=== PATIENT | female | born 1990 | race Hispanic/Latino ===

== ENCOUNTER 2018-04-11 22:01 | Emergency (ER) | payer OTHER ==
--- OUTSIDE RECORDS SUMMARY | 2018-04-11 22:03 | XMS REPORT | Clinical Summary ---
:1990 Author Organization [facility] Address [facility] [place] [address] Care Team Providers Name Role Phone Unavailable Primary Care Provider Unavailable Allergies Not on File Medications Not on file Active Problems Not on file Encounters Date Type Specialty Care Team Description 05/14/2017 Emergency Emergency Medicine Refugio Huerta MD Drug abuse ( Primary Dx) after 04/10/2017 Social History Tobacco Use Types Packs/Day Years Used Date Never Assessed Sex Assigned at Date Recorded Not on file Job Start Date Occupation Industry Not on file Not on file Not on file Travel History Travel Start Travel End No recent travel history available. Last Filed Vital Signs Vital Sign Reading Time Taken Blood Pressure 124/83 05/14/2017 2:13 PM RELEASE ENGINEER Pulse 80 05/14/2017 2:13 PM RELEASE ENGINEER Temperature 36.9 C (98.5 F) 05/14/2017 2:13 PM RELEASE ENGINEER Respiratory Rate 18 05/14/2017 2:13 PM RELEASE ENGINEER Oxygen Saturation 98% 05/14/2017 2:13 PM RELEASE ENGINEER Inhaled Oxygen Concentration - - Weight 88.5 kg (195 lb 1.6 oz) 05/14/2017 12:21 PM RELEASE ENGINEER Height - - Body Mass Index - - Plan of Treatment Health Maintenance Due Date Last Done Comments Cervical Cancer Scrn (3 Yrs) 2010 IMM Influenza Seasonal Jan to June (>/=19 yrs) 01/04/2018 Procedures Procedure Name Priority Date/Time Associated Diagnosis Comments VBG POC Routine 05/14/2017 12:40 PM Results for this RELEASE ENGINEER procedure are in the results section. BMP POC Routine 05/14/2017 12:39 PM Results for this RELEASE ENGINEER procedure are in the results section. LIVER PROFILE Routine 05/14/2017 12:38 PM Results for this RELEASE ENGINEER procedure are in the results section. SALICYLATE STAT 05/14/2017 12:38 PM Results for this RELEASE ENGINEER procedure are in the results section. ACETAMINOPHEN STAT 05/14/2017 12:38 PM Results for this RELEASE ENGINEER procedure are in the results section. CBC/DIFF STAT 05/14/2017 12:38 PM Results for this RELEASE ENGINEER procedure are in the results section. TROPONIN I POC Routine 05/14/2017 12:37 PM Results for this RELEASE ENGINEER procedure are in the results section. after 04/10/2017 Results VBG POC (05/14/2017 12:40 PM RELEASE ENGINEER) pH, [place] POC 7.39Comment: 7.33 - 7.43 [facility] Physician Notified 1 pCO2, [place] POC 37.6 (L) 38.0 - 50.0 [facility] mm Hg 1 pO2, [place] POC 37 (L) 50 - 75 mm Hg [facility] 1 Base Deficit, [place] 2 [facility] POC 1 HCO3, [place] POC 22.9 22.0 - 26.0 [facility] mmol/L 1 % Sat, [place] POC 71 60 - 85 % [facility] 1 Lactic Acid, [place] 0.71 0.4 - 2.0 [facility] POC mmol/L 1 TCO2, [place] POC 24 21 - 32 [facility] mmol/L 1 Performing Organization Address City/State/Zipcode Phone Number MISYS [facility] 1 BMP POC (05/14/2017 12:39 PM RELEASE ENGINEER) CO2 POC 25 21 - 32 mmol/L [facility] 1 Chloride POC 102 98 - 107 mmol/L [facility] 1 Potassium POC 4.4 3.50 - 5.10 [facility] 1 mmol/L Sodium POC 137 136 - 145 mmol/L [facility] 1 Glucose POC 97 74 - 106 mg/dL [facility] 1 Urea Nitrogen POC 16 7 - 18 mg/dL [facility] 1 Creatinine POC 0.7 0.6 - 1.3 mg/dL [facility] 1 Calcium Ionized POC 1.19 1.15 - 1.29 [facility] 1 mmol/L Hemoglobin POC 11.2 (L) 12.0 - 16.0 g/dL [facility] 1 Hematocrit POC 33.0 (L) 37.0 - 47.0 % [facility] 1 GFR, Estimated >60 mL/min/1.73 m2 [facility] 1 GFR, Estim, Afr-Am >60 mL/min/1.73 m2 [facility] 1 Performing Organization Address [facility] Phone Number [facility] 1 SALICYLATE (05/14/2017 12:38 PM RELEASE ENGINEER) Salicylate <1.7 (L) 2.8 - 20.0 mg/dL [facility] 4 Specimen Blood Performing Organization Address [facility] Phone Number [facility] 4 LIVER PROFILE (05/14/2017 12:38 PM RELEASE ENGINEER) T Protein 8.1 6.4 - 8.2 g/dL [facility] 4 Albumin 4.0 3.4 - 5.0 g/dL [facility] 4 T Bilirubin 0.2 0.2 - 1.0 mg/dL [facility] 4 Alk Phos 61 45 - 117 U/L [facility] 4 AST 10 (L) 15 - 37 U/L [facility] 4 ALT 18 12 - 78 U/L [facility] 4 D Bilirubin <0.1 0.0 - 0.2 mg/dL [facility] 4 Specimen Blood Performing Organization Address [facility] Phone Number [facility] 4 CBC/DIFF (05/14/2017 12:38 PM RELEASE ENGINEER) WBC 7.3 4.5 - 11.0 K/uL [facility] 2 RBC 4.06 (L) 4.20 - 5.40 [facility] 2 M/uL Hemoglobin 9.6 (L) 12.0 - 16.0 [facility] 2 g/dL Hematocrit 32.3 (L) 37.0 - 47.0 % [facility] 2 MCV 80 (L) 82 - 92 fL [facility] 2 MCH 23.6 (L) 27.0 - 32.0 pg [facility] 2 MCHC 29.7 (L) 32.0 - 36.0 [facility] 2 g/dL RDW 58.0 (H) 36.4 - 46.3 fL [facility] 2 Platelet 315 150 - 400 K/uL [facility] 2 Mean Platelet Volume 9.4 9.4 - 12.4 fL [facility] 2 Percent NRBC 0.0 [facility] 2 Absolute NRBC 0.00 [facility] 2 Neutrophil 51.2 34.0 - 70.0 % [facility] 2 Lymphocyte 39.0 20.0 - 50.0 % [facility] 2 Monocyte 6.9 5.0 - 12.0 % [facility] 2 Eosinophil 1.9 0.7 - 5.0 % [facility] 2 Basophil 0.7 0.1 - 1.2 % [facility] 2 Pct Immat Gran 0.3 0.0 - 0.5 [facility] 2 Neutrophil, Abs 3.74 1.56 - 6.13 [facility] 2 K/uL Lymphocyte, Abs 2.84 1.18 - 3.74 [facility] 2 K/uL Monocyte, Abs 0.50 (H) 0.24 - 0.36 [facility] 2 K/uL Eosinophil, Abs 0.14 0.04 - 0.36 [facility] 2 K/uL Basophil, Abs 0.05 0.01 - 0.08 [facility] 2 K/uL Absol Immat Gran 0.02 0.00 - 0.03 [facility] 2 K/uL Specimen Blood Performing Organization Address [facility] Phone Number JURGENYS [facility] 2 ACETAMINOPHEN (05/14/2017 12:38 PM RELEASE ENGINEER) Acetaminophen 7.40 (L)Comment: 10 - 30 ug/mL [facility] Please refer to 4 acetaminophen nomogram Specimen Blood Performing Organization Address [facility] Phone Number RADHA [facility] 4 TROPONIN I POC (05/14/2017 12:37 PM RELEASE ENGINEER) Troponin POC 0.00 0.00 - 0.08 ng/mL [facility] 1 Performing Organization Address [facility]ode Phone Number JURGENYS [facility] 1 after 04/10/2017 Insurance Payer Benefit Plan / Subscriber ID Effective Phone Address Type Group Dates [facility] xxxxxxxxx 2016-Prese [phone] [employer] [facility] [phone] [place] [address]
--- OUTSIDE RECORDS SUMMARY | 2018-04-11 22:03 | XMS REPORT ---
:1990 [facility] [address] [place] [address] [place] [id number] Care Team Providers Name Role Phone Unavailable Unavailable Unavailable Problems This patient has no known problems. Allergies, Adverse Reactions, Alerts This patient has no known allergies or adverse reactions. Medications This patient has no known medications. Encounters Start End Encounter Admission Attending Care Care Encounter Date/Time Date/Time Type Type Clinicians Facility Department ID 2017-05-14 2017-05-14 Emergency [facility] [id number] 12:33:15 12:33:15
[2018-04-11 23:54] LABS: Absolute Lymphocytes (CBC) 3.4 K/uL (0.7-4.9); Absolute Monocytes 0.7 K/uL (0.1-1.3); Absolute Neutrophil 6.8 K/uL (1.8-8.0); Basophils % 0.5 % (0-1.3); Eosinophils % 1.5 % (0-4.4); Hematocrit 38.7 % (36.0-45.0); Lymphocytes % 30.7 % (15.3-44.8); MPV 8.9 fL (7.6-11.3); Monocytes % 6.3 % (3.3-12.3); Protime INR 1.01; RBC Red Blood Cell Count 4.85 M/uL (3.86-4.86)
[2018-04-12 00:02] LABS: ALT/SGPT 42 U/L (12-78); AST/SGOT 19 U/L (15-37); Alkaline Phosphatase 68 U/L (45-117); BUN Blood Urea Nitrogen 11 mg/dL (7-18); Bicarbonate 25 mmol/L (21-32); Bilirubin Direct < 0.1 mg/dL (0-0.2); Bilirubin Total 0.1 mg/dL (0.2-1.0); Glucose Level 93 mg/dL (74-106); Magnesium 2.3 mg/dL (1.8-2.4); NT PRO-BNP 7 pg/mL (<125); Potassium 3.9 mmol/L (3.5-5.1); Sodium Level 142 mmol/L (136-145); Troponin (Emerg Dept Use Only) < 0.02 ng/mL (0.0-0.045)
[2018-04-12 00:04] LABS: Barbiturates NEGATIVE (NEGATIVE); Benzodiazepines NEGATIVE (NEGATIVE); Cocaine NEGATIVE (NEGATIVE); METHAMPHETAM NEGATIVE (NEGATIVE); Methadone NEGATIVE (NEGATIVE); Opiates NEGATIVE (NEGATIVE); Phencyclidine NEGATIVE (NEGATIVE); THC Cannibis NEGATIVE (NEGATIVE)
[2018-04-12 00:28] LABS: Anisocytosis 3+; Blood Morphology Comment NOTED (NOT SEEN); Ovalocytes 1+; Platelet Estimate ADEQ
[2018-04-12 00:31] LABS: Urine Blood 1+ (NEG); Urine Glucose NEGATIVE (NEG); Urine Protein NEGATIVE (NEG); Urine pH 6.5 (5.0-7.0)
--- NOTE | 2018-04-12 00:34 | EDPHYS ---
Physician Documentation [facility] Name: Margie Coley Age: 27 yrs Sex: Female : 1990 Arrival Date: 04/11/2018 Time: 22:04 Bed 30 Private MD: None, None ED Physician Chris Villalba HPI: 04/11 23:03 This 27 yrs old Female presents to ER via Ambulatory with complaints of pkl Fainting. 23:03 The patient has experienced syncope, lost consciousness. Onset: The symptoms/episode pkl began/occurred 10 day(s) ago. Associated signs and symptoms: Pertinent positives: bruisers both legs. Patient said she had 3 syncopal episodes in the past 10 days. 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 - Social history:: Smoking status: Patient uses tobacco products, smokes one-half pack cigarettes per day. - Ebola Screening: : No symptoms or risks identified at this time. ROS: 23:03 Eyes: Negative for injury, pain, redness, and discharge, ENT: Negative for injury, pkl pain, and discharge, Neck: Negative for injury, pain, and swelling, Cardiovascular: Negative for chest pain, palpitations, and edema, Respiratory: Negative for shortness of breath, cough, wheezing, and pleuritic chest pain, Abdomen/GI: Negative for abdominal pain, nausea, vomiting, diarrhea, and constipation, Back: Negative for injury and pain, : Negative for injury, bleeding, discharge, and swelling, MS/Extremity: Negative for injury and deformity. 23:03 Skin: Positive for bruises both legs. 23:03 Neuro: Positive for syncope. Exam: 23:03 Abdomen/GI: Exam negative for acute changes. pkl 23:03 Head/Face: Normocephalic, atraumatic. Eyes: Pupils equal round and reactive to light, extra-ocular motions intact. Lids and lashes normal. Conjunctiva and sclera are non-icteric and not injected. Cornea within normal limits. Periorbital areas with no swelling, redness, or edema. ENT: Nares patent. No nasal discharge, no septal abnormalities noted. Tympanic membranes are normal and external auditory canals are clear. Oropharynx with no redness, swelling, or masses, exudates, or evidence of obstruction, uvula midline. Mucous membranes moist. Neck: Trachea midline, no thyromegaly or masses palpated, and no cervical lymphadenopathy. Supple, full range of motion without nuchal rigidity, or vertebral point tenderness. No Meningismus. Chest/axilla: Normal chest wall appearance and motion. Nontender with no deformity. No lesions are appreciated. Cardiovascular: Regular rate and rhythm with a normal S1 and S2. No gallops, murmurs, or rubs. Normal PMI, no JVD. No pulse deficits. Respiratory: Lungs have equal breath sounds bilaterally, clear to auscultation and percussion. No rales, rhonchi or wheezes noted. No increased work of breathing, no retractions or nasal flaring. Abdomen/GI: Soft, non-tender, with normal bowel sounds. No distension or tympany. No guarding or rebound. No evidence of tenderness throughout. Back: No spinal tenderness. No costovertebral tenderness. Full range of motion. 23:03 Skin: Appearance: bruises both. Vital Signs: 22:16 BP 151 / 96; Pulse 86; Resp 16; Temp 99.4(O); Pulse Ox 100% on R/A; Weight 90.72 kg; lp1 Height 5 ft. 6 in. (167.64 cm); Pain 0/10; 22:59 BP 130 / 88 Supine; Pulse 81; Pulse Ox 100% ; tl3 22:59 BP 136 / 90; Pulse 94; Pulse Ox 100% on R/A; tl3 22:59 BP 150 / 111; Pulse 90; Pulse Ox 100% on R/A; tl3 04/12 00:36 BP 113 / 77; Pulse 77; Resp 18; Pulse Ox 100% on R/A; tl3 04/11 22:16 Body Mass Index 32.28 (90.72 kg, 167.64 cm) lp1 MDM: 04/11 22:47 Patient medically screened. [facility] 23:03 Data reviewed: vital signs, nurses notes. [facility] 04/12 00:32 Data reviewed: lab test result(s), EKG, radiologic studies, CT scan, plain films. pkl 04/11 23:03 Order name: Basic Metabolic Panel; Complete Time: 00:16 pkl 04/11 23:03 Order name: CBC with Diff; Complete Time: 00:34 pkl 04/11 23:03 Order name: LFT's; Complete Time: 00:16 pkl 04/11 23:03 Order name: Magnesium; Complete Time: 00:16 pkl 04/11 23:03 Order name: NT PRO-BNP; Complete Time: 00:16 pkl 04/11 23:03 Order name: PT-INR; Complete Time: 00:16 pkl 04/11 23:03 Order name: Troponin (emerg Dept Use Only); Complete Time: 00:16 pkl 04/11 23:03 Order name: XRAY Chest (1 view) pkl 04/11 23:12 Order name: UDS; Complete Time: 00:16 pkl 04/11 23:12 Order name: Sed Rate; Complete Time: 00:16 pkl 04/11 23:12 Order name: CT Head Brain wo Cont pkl 01 23:58 Order name: Urine Dipstick--Ancillary (enter results); Complete Time: 00:34 em1 04/11 23:58 Order name: Urine --Ancillary (enter results); Complete Time: 00:34 em1 04/12 00:01 Order name: Manual Differential; Complete Time: 00:34 EDMS 04/11 23:03 Order name: EKG; Complete Time: 23:04 pkl 04/11 23:03 Order name: Cardiac monitoring; Complete Time: 23:34 pkl 04/11 23:03 Order name: EKG - Nurse/Tech; Complete Time: 23:34 pkl 04/11 23:03 Order name: IV Saline Lock; Complete Time: 23:19 pkl 04/11 23:03 Order name: Labs collected and sent; Complete Time: 23:19 pkl 04/11 23:03 Order name: O2 Per Protocol; Complete Time: 23:19 pkl 04/11 23:03 Order name: O2 Sat Monitoring; Complete Time: 23:19 pkl Administered Medications: No medications were administered Disposition: 04/12/18 00:33 Discharged to Home. Impression: Syncope. - Condition is Stable. - Medication Reconciliation Form, Thank You Letter, Antibiotic Education, Prescription Opioid Use form. - Follow up: Christ Lim MD; When: 2 - 3 days; Reason: Re-evaluation by your physician. - Problem is new. - Symptoms have improved. Signatures: Dispatcher [employer] EDChris Klein MD MD pkl Farhana Sanders RN RN lp1 Alida Mckeon RN RN tl3 Corrections: (The following items were deleted from the chart) 00:43 00:33 04/12/2018 00:33 Discharged to Home. Impression: Syncope. Condition is Stable. tl3 Forms are Medication Reconciliation Form, Thank You Letter, Antibiotic Education, Prescription Opioid Use. Follow up: Christ Lim; When: 2 - 3 days; Reason: Re-evaluation by your physician. Problem is new. Symptoms have improved. pkl
--- NOTE | 2018-04-12 00:34 | ER ---
Nurse's Notes [facility] Name: Margie Coley Age: 27 yrs Sex: Female : 1990 Arrival Date: 04/11/2018 Time: 22:04 Bed 30 Private MD: None, None Diagnosis: Syncope Presentation: 04/11 22:14 Presenting complaint: Patient states: "I have fainted 3 times in the last week and a lp1 half"; Patient states fainting occurs in the morning when she is getting out of bed; Also has multiple bruising to lower legs, unknown reason. Transition of care: patient was not received from another setting of care. Onset of symptoms was April 11, 2018. Risk Assessment: Do you want to hurt yourself or someone else? Patient reports no desire to harm self or others. Initial Sepsis Screen: Does the patient meet any 2 criteria? No. Patient's initial sepsis screen is negative. Does the patient have a suspected source of infection? No. Patient's initial sepsis screen is negative. Care prior to arrival: None. 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 - Social history:: Smoking status: Patient uses tobacco products, smokes one-half pack cigarettes per day. - Ebola Screening: : No symptoms or risks identified at this time. Screenin:16 Abuse screen: Denies threats or abuse. Denies injuries from another. Nutritional lp1 screening: No deficits noted. Tuberculosis screening: No symptoms or risk factors identified. 23:00 Fall Risk None identified. tl3 Assessment: 23:00 General: Appears comfortable, well groomed, well developed, well nourished, Behavior is tl3 calm, cooperative, appropriate for age. General: pt reports that she has felt weak and dizzy upon first waking in the morning as she is getting up from the lying position. Pain: Denies pain. Neuro: Level of Consciousness is awake, alert, obeys commands, Oriented to person, place, time, situation, Appropriate for age. Cardiovascular: Patient's skin is warm and dry. Respiratory: Airway is patent Respiratory effort is even, unlabored, Respiratory pattern is regular, symmetrical. GI: No signs and/or symptoms were reported involving the gastrointestinal system. : No signs and/or symptoms were reported regarding the genitourinary system. EENT: No signs and/or symptoms were reported regarding the EENT system. Derm: No signs and/or symptoms reported regarding the dermatologic system. Musculoskeletal: No signs and/or symptoms reported regarding the musculoskeletal system. 04/12 00:36 Reassessment: Patient appears in no apparent distress at this time. No changes from tl3 previously documented assessment. Patient and/or family updated on plan of care and expected duration. Pain level reassessed. Patient is alert, oriented x 3, equal unlabored respirations, skin warm/dry/pink. Vital Signs: 04/11 22:16 BP 151 / 96; Pulse 86; Resp 16; Temp 99.4(O); Pulse Ox 100% on R/A; Weight 90.72 kg; lp1 Height 5 ft. 6 in. (167.64 cm); Pain 0/10; 22:59 BP 130 / 88 Supine; Pulse 81; Pulse Ox 100% ; tl3 22:59 BP 136 / 90; Pulse 94; Pulse Ox 100% on R/A; tl3 22:59 BP 150 / 111; Pulse 90; Pulse Ox 100% on R/A; tl3 04/12 00:36 BP 113 / 77; Pulse 77; Resp 18; Pulse Ox 100% on R/A; tl3 04/11 22:16 Body Mass Index 32.28 (90.72 kg, 167.64 cm) lp1 ED Course: 04/11 22:04 Patient arrived in ED. mr 22:05 None, None is Private Physician. mr 22:15 Triage completed. lp1 22:16 Arm band placed on right wrist. lp1 22:47 Chris Villalba MD is Attending Physician. pkl 22:50 Alida Mckeon, SAMSON is Primary Nurse. tl3 23:00 Patient has correct armband on for positive identification. Placed in gown. Bed in low tl3 position. Call light in reach. Side rails up X 1. Pulse ox on. NIBP on. Warm blanket given. 23:00 No provider procedures requiring assistance completed. tl3 23:14 X-ray completed. Portable x-ray completed in exam room. Patient tolerated procedure kw well. 23:15 XRAY Chest (1 view) In Process Unspecified. EDMS 23:18 Inserted saline lock: 20 gauge in right antecubital area, using aseptic technique. mt Blood collected. 23:[address] via wheelchair. tl3 23:[address] via wheelchair. kw1 23:50 CT Head Brain wo Cont In Process Unspecified. EDMS 23:51 CT completed. Patient tolerated procedure well. Patient moved back from CT. kw1 04/12 00:33 Christ Lim MD is Referral Physician. pkl 00:36 IV discontinued, intact, bleeding controlled, No redness/swelling at site. Pressure tl3 dressing applied. Administered Medications: No medications were administered Outcome: 00:33 Discharge ordered by . pkl 00:36 Discharged to home ambulatory. tl3 00:36 Condition: stable 00:36 Discharge instructions given to patient, Instructed on discharge instructions, follow up and referral plans. medication usage, Demonstrated understanding of instructions, follow-up care, medications. 00:43 Patient left the ED. tl3 Signatures: Dispatcher [employer] EDMS Chris Villalba MD MD pkl Airam Whitehead mr Echeverria, Farhana Sandoval, RN RN lp1 Divine Quevedo mt, Kimberly kwAlida Travis RN RN tl3
[2018-04-12 01:34] VITALS: TEMP 99.4; O2SAT 100
[2018-04-12 01:37] VITALS: BP 113/77
--- NOTE | 2018-04-12 06:25 | EKG ---
Test Date: 2018-04-11 Test Time: 23:28:38 Gum Cook: LYRIC MEASUREMENT RESULTS: Intervals: Rate: 78 MA: 156 QRSD: 84 QT: 380 QTc: 433 [place]: P: 51 MA: 156 QRS: 69 T: 90 INTERPRETIVE STATEMENTS: Normal sinus rhythm with sinus arrhythmia Normal ECG Compared to ECG 07/12/2016 04:11:22 Right-axis deviation no longer present Prolonged QT interval no longer present Electronically Signed On 04-12-18 06:16:54 LANGUAGE TRANSLATOR by Keon Caballero
--- NOTE | 2018-04-12 08:38 | RAD REPORT ---
EXAM DESCRIPTION: Missy Single View04/11/2018 11:18 pm CLINICAL HISTORY: Chest pain COMPARISON: 2017 FINDINGS: The lungs appear clear of acute infiltrate. The heart is normal size IMPRESSION: No acute abnormalities displayed
--- NOTE | 2018-04-12 09:07 | RAD REPORT ---
EXAM DESCRIPTION: CT - Head Brain Wo Cont - 04/12/2018 2:24 am CLINICAL HISTORY: Syncope COMPARISON: September 2017 TECHNIQUE: Computed axial tomography of the head was obtained. IV contrast was not requested.Prelimi nary report generated by [email or web address] radiologic and reviewed prior to dictation All CT scans are performed using dose optimization technique as appropriate and may include automated exposure control or mA/KV adjustment according to patient size. FINDINGS: An intracranial bleed is not seen . The ventricles are normal in caliber. No extra-axial fluid collection is noted. Fluid within the sinuses/ mastoids is not seen. IMPRESSION: No acute intracranial abnormality is seen. If patient's symptoms persist MRI of the bra in would be recommended.
== END 2018-04-12 00:43 | disposition home or self-care (01) ==
LOC: ER 22:01
DX: R55 Syncope and collapse (principal); F17.210 Nicotine dependence, cigarettes, uncomplicated
CPT/HCPCS: 36415; 70450; 71045; 80048; 80076; 80307; 81003; 81025; 83735; 83880; 84484; 85025; 85610; 85652; 93005; 99284

== ENCOUNTER 2018-08-26 19:33 | Emergency (ER) | payer OTHER ==
[2018-08-26 20:45] LABS: Absolute Lymphocytes (CBC) 2.5 K/uL (0.7-4.9); Absolute Monocytes 0.7 K/uL (0.1-1.3); Absolute Neutrophil 9.9 K/uL (1.8-8.0); Basophils % 0.6 % (0-1.3); Eosinophils % 1.2 % (0-4.4); Hematocrit 39.9 % (36.0-45.0); Lymphocytes % 18.9 % (15.3-44.8); MPV 8.9 fL (7.6-11.3); RBC Red Blood Cell Count 4.32 M/uL (3.86-4.86)
[2018-08-26 21:28] LABS: Urine Blood TRACE (NEG); Urine Glucose NEGATIVE (NEG); Urine Protein 1+ (NEG); Urine Specific Gravity 1.025 (1.005-1.030)
[2018-08-26 21:33] LABS: BUN Blood Urea Nitrogen 8 mg/dL (7-18); Bicarbonate 22 mmol/L (21-32); Glucose Level 90 mg/dL (74-106); HCG, Quantitative 38177 mIU/mL (1-3); Potassium 3.5 mmol/L (3.5-5.1); Sodium Level 139 mmol/L (136-145)
--- NOTE | 2018-08-26 22:28 | ER ---
Nurse's Notes [facility] Name: Margie Coley Age: 28 yrs Sex: Female : 1990 Arrival Date: 08/26/2018 Time: 19:35 Bed 16 Private MD: Chilango Lee F Diagnosis: Threatened Presentation: 08/26 19:43 Presenting complaint: Patient states: I just found out I was at the beginning ed1 of August. Today I woke up with really bad back pain and lower abdominal pain. When I wipe I noticed I was spotting. Transition of care: patient was not received from another setting of care. Onset of symptoms was August 26, 2018. Risk Assessment: Do you want to hurt yourself or someone else? Patient reports no desire to harm self or others. Initial Sepsis Screen: Does the patient meet any 2 criteria? No. Patient's initial sepsis screen is negative. Does the patient have a suspected source of infection? No. Patient's initial sepsis screen is negative. Care prior to arrival: Medication(s) given: Tylenol. 19:43 Method Of Arrival: Ambulatory ed1 19:43 Acuity: SONIA 2 ed1 Triage Assessment: 19:45 General: Appears in no apparent distress. Behavior is calm, cooperative. Pain: ed1 Complains of pain in low back area Pain radiates to suprapubic area Pain currently is 8 out of 10 on a pain scale. Quality of pain is described as sharp. : Reports vaginal bleeding that is spotty. 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 - Social history:: Smoking status: Patient uses tobacco products, smokes one pack cigarettes per day. - Ebola Screening: : Patient negative for fever greater than or equal to 101.5 degrees Fahrenheit, and additional compatible Ebola Virus Disease symptoms Patient denies exposure to infectious person Patient denies travel to an Ebola-affected area in the 21 days before illness onset No symptoms or risks identified at this time. Screenin:44 Abuse screen: Denies threats or abuse. Denies injuries from another. ls4 19:44 Nutritional screening: No deficits noted. Tuberculosis screening: No symptoms or risk ls4 factors identified. Fall Risk None identified. Assessment: 20:42 Obstetrical Assessment: General assessment: awake and alert, skin warm and dry. ls4 20:42 Respiratory: Airway Respiratory effort is even, unlabored, Breath sounds are clear ls4 bilaterally. GI: No deficits noted. : Reports vaginal bleeding that is spotty. 21:38 Reassessment: Patient appears in no apparent distress at this time. Patient and/or ls4 family updated on plan of care and expected duration. Pain level reassessed. Patient is alert, oriented x 3, equal unlabored respirations, skin warm/dry/pink. 22:15 Reassessment: Patient appears in no apparent distress at this time. Patient and/or cc3 family updated on plan of care and expected duration. Pain level reassessed. Patient is alert, oriented x 3, equal unlabored respirations, skin warm/dry/pink. Received this female patient from [facility] as a case of vaginal bleeding. Patient denies pain at this time. Patient states symptoms have improved. 23:00 Reassessment: Patient appears in no apparent distress at this time. Patient and/or cc3 family updated on plan of care and expected duration. Pain level reassessed. Patient is alert, oriented x 3, equal unlabored respirations, skin warm/dry/pink. Dr. Burt discharged the patient home, no prescription given. IV cannula removed and patient left ER vitally stable and ambulatory with her . Patient denies pain at this time. Patient states symptoms have improved. Vital Signs: 19:45 BP 137 / 88; Pulse 74; Resp 18; Temp 98.2; Pulse Ox 98% on R/A; Weight 92.99 kg; Height ed1 5 ft. 7 in. (170.18 cm); Pain 8/10; 21:38 BP 132 / 74; Pulse 72; Resp 14; Pulse Ox 99% on R/A; ls4 22:45 BP 133 / 75; Pulse 70; Resp 15 S; Pulse Ox 99% on R/A; cc3 19:45 Body Mass Index 32.11 (92.99 kg, 170.18 cm) ed1 Vitals: 21:55 Heart Tones 6 weeks . ls4 ED Course: 19:35 Patient arrived in ED. es 19:36 Chilango Lee MD is Private Physician. es 19:44 Patient has correct armband on for positive identification. Bed in low position. Call ls4 light in reach. Side rails up X 1. Warm blanket given. Pillow given. 19:44 No provider procedures requiring assistance completed. Inserted saline lock: 20 gauge ls4 in left antecubital area, using aseptic technique. 19:45 Triage completed. ed1 19:45 Arm band placed on right wrist. ed1 19:48 Tati Hennessy RN is Primary Nurse. ls4 19:49 Niranjan Burt MD is Attending Physician. 20:58 TRANSVAG OB In Process Unspecified. EDMS 23:00 IV discontinued, intact, bleeding controlled, No redness/swelling at site. Pressure cc3 dressing applied. Administered Medications: No medications were administered Point of Care Testing: Urine : 21:16 hCG Reading: Positive; ls4 Outcome: 22:27 Discharge ordered by . 23:00 Discharged to home ambulatory, with family. cc3 23:00 Condition: stable 23:00 Discharge instructions given to patient, family, Instructed on discharge instructions, follow up and referral plans. Demonstrated understanding of instructions, follow-up care. 23:12 Patient left the ED. cc3 Signatures: Dispatcher [employer] Carla Espino Erika, RN RN ed1 Niranjan Burt MD MD gs Cordel, Charlene cc3 Tati Hennessy RN RN ls4
--- NOTE | 2018-08-26 22:28 | EDPHYS ---
Physician Documentation [facility] Name: Margie Coley Age: 28 yrs Sex: Female : 1990 Arrival Date: 08/26/2018 Time: 19:35 Bed 16 Private MD: Chilango Lee F ED Physician Niranjan Burt HPI: 08/27 00:47 This 28 yrs old Female presents to ER via Ambulatory with complaints of gs Vaginal Bleeding, + Preg <12wks. 00:47 The estimated gestational age is 7 weeks. Previous pregnancies: in previous pregnancies gs patient has had vaginal delivery. Associated signs and symptoms: Pertinent negatives: dysuria, fever. Associated signs and symptoms: Pertinent positives: vaginal bleeding. The patient has not recently seen a physician. 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 - Social history:: Smoking status: Patient uses tobacco products, smokes one pack cigarettes per day. - Ebola Screening: : Patient negative for fever greater than or equal to 101.5 degrees Fahrenheit, and additional compatible Ebola Virus Disease symptoms Patient denies exposure to infectious person Patient denies travel to an Ebola-affected area in the 21 days before illness onset No symptoms or risks identified at this time. ROS: 08/27 00:47 All other systems are negative. gs Exam: 00:47 Head/Face: Normocephalic, atraumatic. Eyes: Pupils equal round and reactive to light, gs extra-ocular motions intact. Lids and lashes normal. Conjunctiva and sclera are non-icteric and not injected. Cornea within normal limits. Periorbital areas with no swelling, redness, or edema. ENT: Nares patent. No nasal discharge, no septal abnormalities noted. Tympanic membranes are normal and external auditory canals are clear. Oropharynx with no redness, swelling, or masses, exudates, or evidence of obstruction, uvula midline. Mucous membranes moist. Neck: Trachea midline, no thyromegaly or masses palpated, and no cervical lymphadenopathy. Supple, full range of motion without nuchal rigidity, or vertebral point tenderness. No Meningismus. Chest/axilla: Normal chest wall appearance and motion. Nontender with no deformity. No lesions are appreciated. Cardiovascular: Regular rate and rhythm with a normal S1 and S2. No gallops, murmurs, or rubs. Normal PMI, no JVD. No pulse deficits. Respiratory: Lungs have equal breath sounds bilaterally, clear to auscultation and percussion. No rales, rhonchi or wheezes noted. No increased work of breathing, no retractions or nasal flaring. Back: No spinal tenderness. No costovertebral tenderness. Full range of motion. Skin: Warm, dry with normal turgor. Normal color with no rashes, no lesions, and no evidence of cellulitis. MS/ Extremity: Pulses equal, no cyanosis. Neurovascular intact. Full, normal range of motion. 00:47 Constitutional: The patient appears alert, awake. 00:47 Abdomen/GI: Palpation: mild abdominal tenderness, in the suprapubic area, right lower quadrant and left lower quadrant. Vital Signs: 08/26 19:45 BP 137 / 88; Pulse 74; Resp 18; Temp 98.2; Pulse Ox 98% on R/A; Weight 92.99 kg; Height ed1 5 ft. 7 in. (170.18 cm); Pain 8/10; 21:38 BP 132 / 74; Pulse 72; Resp 14; Pulse Ox 99% on R/A; ls4 22:45 BP 133 / 75; Pulse 70; Resp 15 S; Pulse Ox 99% on R/A; cc3 19:45 Body Mass Index 32.11 (92.99 kg, 170.18 cm) ed1 MDM: 19:58 Patient medically screened. 08/27 00:47 Differential diagnosis: threatened Ab, missed Ab, ectopic . Data reviewed: vital signs, nurses notes. Counseling: I had a detailed discussion with the patient and/or guardian regarding: the historical points, exam findings, and any diagnostic results supporting the discharge/admit diagnosis, radiology results, the need for outpatient follow up. Response to treatment: the patient's symptoms have markedly improved after treatment. 08/26 20:05 Order name: Quantitative Hcg; Complete Time: :24 08/26 20:05 Order name: Abo/rh Typing; Complete Time: 00:50 08/26 20:05 Order name: Basic Metabolic Panel; Complete Time: 22:24 08/26 20:05 Order name: CBC with Diff; Complete Time: 22:24 08/26 20:56 Order name: Urine Dipstick--Ancillary (enter results); Complete Time: 22:24 [facility] 08/26 20:56 Order name: Urine --Ancillary (enter results); Complete Time: 22:24 [facility] 08/26 20:05 Order name: IV Saline Lock; Complete Time: 20:42 08/26 20:05 Order name: Labs collected and sent; Complete Time: 20:42 08/26 20:05 Order name: NPO; Complete Time: 20:42 08/26 20:05 Order name: Urine Dipstick-Ancillary (obtain specimen); Complete Time: 21:12 08/26 20:47 Order name: TRANSVAG OB EDMS Administered Medications: No medications were administered Point of Care Testing: Urine : 08/26 21:16 hCG Reading: Positive; ls4 Disposition: 08/26/18 22:27 Discharged to Home. Impression: Threatened . - Condition is Stable. - Discharge Instructions: Threatened Miscarriage, Vaginal Bleeding During , First Trimester. - Medication Reconciliation Form, Thank You Letter, Antibiotic Education, Prescription Opioid Use form. - Follow up: Private Physician; When: 1 - 2 days; Reason: Re-evaluation by your physician. Signatures: Dispatcher [facility] Maria Luisa Rocha RN RN ed1 Niranjan Burt MD MD gs Cordel, Charlene cc3 Corrections: (The following items were deleted from the chart) 20:46 20:06 Pelvis Complete+US.RAD.BRZ ordered. [facility] 23:12 22:27 08/26/2018 22:27 Discharged to Home. Impression: Threatened . Condition cc3 is Stable. Forms are Medication Reconciliation Form, Thank You Letter, Antibiotic Education, Prescription Opioid Use. Follow up: Private Physician; When: 1 - 2 days; Reason: Re-evaluation by your physician.
[2018-08-26 23:31] VITALS: TEMP 98.2
[2018-08-26 23:33] VITALS: BP 132/74; O2SAT 99
--- NOTE | 2018-08-27 07:52 | RAD REPORT ---
EXAM DESCRIPTION: US - TRANSVAG OB - 08/26/2018 9:00 pm CLINICAL HISTORY: , vaginal bleeding. Preliminary findings provided at the time of the study. COMPARISON: None. FINDINGS: Endovaginal sonography performed. Cervical canal is long and closed. No blood or abnormal fluid the cervical canal. A normal shaped ges tational sac is seen in the fundus. pole and yolk sac identified. No hematoma or mass within th e uterus. Right ovary contains a 2.1 centimeter cyst. No suspicious right ovarian or right adnexal fi nding. Left ovary was obscured by bowel gas. No left adnexal mass. No blood or fluid in the cul de sac. Bode-rump length corresponds to a 7 week 1 day age. Calculated CLAIRE is 04/13/2019. Heart rate is 140 BPM. IMPRESSION: Single 7 week 1 day IUP with heart rate 140 BPM. No hematoma, mass or other suspicious uterine finding. Small right ovarian cyst. No right adnexal abnormality. Nonvisualization of the left ovary. No left adnexal abnormality.
== END 2018-08-26 23:12 | disposition home or self-care (01) ==
LOC: ER 19:33
DX: O20.0 Threatened abortion (principal); O99.331 Smoking (tobacco) complicating pregnancy, first trimester; F17.210 Nicotine dependence, cigarettes, uncomplicated; Z3A.01 Less than 8 weeks gestation of pregnancy
CPT/HCPCS: 36415; 76813; 80048; 81003; 81025; 84702; 85025; 86900; 86901; 99284

== ENCOUNTER 2018-11-25 14:58 | Emergency (ER) | payer OTHER ==
--- OUTSIDE RECORDS SUMMARY | 2018-11-25 15:01 | XMS REPORT ---
:1990 [facility] Address [address] [place] [address] Dr. Keen [address] [place] [id number] Care Team Providers Name Role Phone Unavailable Unavailable Unavailable Problems This patient has no known problems. Allergies, Adverse Reactions, Alerts This patient has no known allergies or adverse reactions. Medications This patient has no known medications.
--- OUTSIDE RECORDS SUMMARY | 2018-11-25 15:01 | XMS REPORT | Summary of Care ---
:1990 Author Organization [facility] Address [address] [place] [address] Care Team Providers Name Role Phone RosaChilango Insurance Hmo Marjorie Lin [facility] Primary Care Provider Reason for Visit Reason Comments Care Encounter Details Date Type Department Care Team Description 11[facility]19/2018 [facility], Supervision of high risk in second trimester (Primary Dx); Visit Shahla Trinidad [facility] Multiparity; [address] History of section; [facility] Obesity affecting in second trimester; [phone] BELKYS A Rubella non-immune status, antepartum [phone] [place] [address] Allergies No Known Allergiesdocumented as of this encounter (statuses as of 11/19/2018) Medications Medication Sig Dispensed Refills Start Date End Date Status amoxicillin-pot Take 1 tablet by 21 tablet 0 12/17/2017 Active clavulanate 500 mg mouth 3 (three) (AUGMENTIN) 500-125 mg times daily. tablet norgestimate-ethinyl Take 1 tablet by 1 Package 2 06/30/2018 Active estradiol (ORTHO mouth daily. TRI-CYCLEN, 28,) 0.18/0.215/0.25 mg-35 mcg (28) tabletIndications: Encounter for other contraceptive management Nxejxhvhjjpwu-Xs-Ysyd-Mi Take by mouth. 0 Active nerals (MULTIPLE VITAMIN, WOMENS) Tab multivitamin Take 1 tablet by 90 tablet 3 08/05/2018 Active ( VITAMIN) mouth daily. tabletIndications: Supervision of high risk in first trimester documented as of this encounter (statuses as of 11/19/2018) Active Problems Problem Noted Date Rubella non-immune status, antepartum 08/10/2018 Overview: Address pp Supervision of high-risk 08/05/2018 Multiparity 08/05/2018 History of section 08/05/2018 Overview: x2 Tobacco use in 08/05/2018 Overview: Current Obesity affecting 08/05/2018 Vaginal bleeding in 08/05/2018 UTI symptoms 06/30/2018 History of asthma 08/29/2016 Estimated Date of Delivery Comments Yes 04/12/2019 Based on last menstrual period of 07/06/2018 (Approximate) documented as of this encounter (statuses as of 11/19/2018) Resolved Problems Problem Noted Date Resolved Date BMI 32.0-32.9,adult 02/16/2018 08/05/2018 Encounter for IUD insertion 11/14/2016 02/16/2018 Well woman exam 08/29/2016 02/16/2018 Other general counseling and advice for contraceptive 08/29/2016 02/16/2018 management Non morbid obesity due to excess calories 08/29/2016 02/16/2018 Tobacco use disorder 08/29/2016 02/16/2018 01/09/2015 08/29/2016 GBBS (group B beta hemolytic streptococcus) pharyngitis 12/20/2014 08/29/2016 Overview: Will need antibiotics if labors Antepartum anemia in third trimester 12/18/2014 08/29/2016 Previous delivery affecting , antepartum 12/18/20142016 Tobacco use disorder complicating , childbirth, or 10/17/20142016 puerperium, antepartum Overview: ICD10 Diagnosis 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 Altered mental status 08/24/2014 08/29/2016 Drug abuse, opioid type 07/06/2014 08/29/2016 Overview: 12/18 + cocaine drug screen Multiparous 07/06/2014 08/29/2016 Supervision of other high-risk 06/03/2014 08/29/2016 Overview: ICD10 Diagnosis 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 documented as of this encounter (statuses as of 11/19/2018) Immunizations Name Administration Dates Next Due Tdap 12/18/2014, 06/02/2013 documented as of this encounter Social History Tobacco Use Types Packs/Day Years Used Date Current Every Day Smoker Cigarettes 0.5 4 Started: 08/06/2015 Smokeless Tobacco: Never Used Alcohol Use Drinks/Week oz/Week Comments No 0 Standard drinks or equivalent 0.0 approx 2 drinks per week Estimated Date of Delivery Comments Yes 04/12/2019 Based on last menstrual period of 07/06/2018 (Approximate) Sex Assigned at Date Recorded Not on file Job Start Date Occupation Industry Not on file Not on file Not on file Travel History Travel Start Travel End No recent travel history available. documented as of this encounter Last Filed Vital Signs Vital Sign Reading Time Taken Comments Blood Pressure 124/83 11/19/2018 12:56 PM CDT Pulse 85 11/19/2018 12:56 PM CDT Temperature 36.6 C (97.8 F) 11/19/2018 12:56 PM CDT Respiratory Rate 16 11/19/2018 12:56 PM CDT Oxygen Saturation - - Inhaled Oxygen Concentration - - Weight 98.1 kg (216 lb 4 oz) 11/19/2018 12:56 PM CDT Height 165.1 cm (5' 5") 11/19/2018 12:56 PM CDT Body Mass Index 35.99 11/19/2018 12:56 PM CDT documented in this encounter Progress Notes Marjorie Lin, WHCNP - 11/19/2018 12:45 PM CDT Chief complaint: Chief Complaint Patient presents with Care HPI CC: Follow Up Visit Margie Coley is a 28 year old, , /White female. Patient's last menstrual period was 07/06/2018 (approximate). She is 19w3d with an intrauterine . Her estimated date of delivery is 04/12/2019, by Last Menstrual Period. She has no complaints today. Histories OB History Para Term AB Living 5 4 4 0 4 SAB TAB Ectopic Multiple Live Births 0 4 # Outcome Date GA Lbr Octavio/2nd Weight Sex Delivery Anes PTL Lv 5 Current 4 Term 01/09/15 38w6d 6 lb 2.4 oz (2.79 kg) M SEC Spinal [place] Comments: Maternal Age: 25; :5; Parity:4 Mother's Blood Type:O pos Baby's Blood Type:O pos Maternal Serological Test:normal Maternal Group B Strep Screening:positive; Adequate Treatment:no Complications:yes - maternal drug use (opiates and 3 Term 09/04/11 40w0d 8 lb 6 oz (3.799 kg) F CS-LTranv EPIDURAL Y [place] 2 Term 09/11/06 40w0d 8 lb (3.629 kg) M NORMAL SPONT NONE [place] 1 Term 08/14/05 40w0d 6 lb (2.722 kg) F NORMAL SPONT NONE [place] Past Medical History: Diagnosis Date Anemia with Asthma as a child Blood transfusion, without reported diagnosis pt is unsure when she had a blood transfusion Cocaine abuse 01/2016 Drug abuse, opioid type 07/06/2014 Dyslexia pt states she cannot read or write Family History Problem Relation Age of Onset Genetic Mother pt states parents gave sister the gene of hemophilia Diabetes Father Genetic Father Hypertension Father Colon Cancer Father Other - see comments Sister hemophelia Breast Cancer Maternal Aunt Arthritis NoFHx Asthma NoFHx defects NoFHx Ovarian Cancer NoFHx Uterine Cancer NoFHx Cancer NoFHx Depression NoFHx High cholesterol NoFHx Heart NoFHx Mental retardation NoFHx Neurological NoFHx Osteoporosis NoFHx Psychiatry NoFHx Family Status Relation Name Status Mo (Not Specified) Fa (Not Specified) Sis (Not Specified) MAunt (Not Specified) NoFHx (Not Specified) Past Surgical History: Procedure Laterality Date APPENDECTOMY age 8 SECTION N/A 01/09/2015 Surgeon: Rachelle Anthony MD; [facility] SECTION 2012 FRACTURE SURGERY fracture of left arm OVARIAN CYSTECTOMY Bilateral 01/09/2015 Surgeon: Rachelle Anthony MD; Location: [facility] Social History Socioeconomic History Marital status: Single Spouse name: Not on file Number of children: 3 Years of education: Not on file Highest education level: Not on file Occupational History Occupation: none Social Needs Financial resource strain: Not on file Food insecurity: Worry: Not on file Inability: Not on file Transportation needs: Medical: Not on file Non-medical: Not on file Tobacco Use Smoking status: Current Every Day Smoker Packs/day: 0.50 Years: 4.00 Pack years: 2.00 Types: Cigarettes Start date: 08/06/2015 Smokeless tobacco: Never Used Substance and Sexual Activity Alcohol use: No Alcohol/week: 0.0 oz Comment: approx 2 drinks per week Drug use: No Types: Cocaine, Marijuana Comment: last used 01/2016 Sexual activity: Yes Partners: Male Comment: last sexual intercourse 08/04/2018 Lifestyle Physical activity: Days per week: Not on file Minutes per session: Not on file Stress: Not on file Relationships Social connections: Talks on phone: Not on file Gets together: Not on file Attends yazdanism service: Not on file Active member of club or organization: Not on file Attends meetings of clubs or organizations: Not on file Relationship status: Not on file Intimate partner violence: Fear of current or ex partner: Not on file Emotionally abused: Not on file Physically abused: Not on file Forced sexual activity: Not on file Other Topics Concern Service Not Asked Blood Transfusions No Caffeine Concern Not Asked Occupational Exposure Not Asked Hobby Hazards Not Asked Sleep Concern Not Asked Stress Concern Not Asked Weight Concern Not Asked Special Diet Not Asked Back Care Not Asked Exercise Not Asked Bike Helmet Not Asked Seat Belt Not Asked Self-Exams Not Asked Social History Narrative Pt denies current or past physical, sexual or emotional abuse. Patient lives with roommate, boyfriend and his son. Patient denies any cats. Social History Substance and Sexual Activity Sexual Activity Yes Partners: Male Comment: last sexual intercourse 08/04/2018 Labs No new labs and Routine Visit on 10/21/2018 Component Date Value POCT U SP GRAV 10/21/2018 . POCT PH U 10/21/2018 . POCT U LEUK EST 10/21/2018 . POCT U NIT 10/21/2018 . POCT U PROT 10/21/2018 Trace POCT U GLU 10/21/2018 Neg. POCT U KETONE 10/21/2018 . POCT U UROBILI 10/21/2018 . POCT U BILI 10/21/2018 . POCT U BLD 10/21/2018 . RACE 10/21/2018 WEIGHT 10/21/2018 213.4375 GEST. AGE 0710/21/2018 15,2 INS. DEP 10/21/2018 No LMP 10/21/2018 [id number] METHOD 10/21/2018 LMP MULT GEST 10/21/2018 No NTD HX 10/21/2018 No INITAL OR REPEAT 10/21/2018 Initial Testing SMOKER 10/21/2018 No INHIBIN 10/21/2018 122.0 AFP-MS 10/21/2018 18.7 ESTRIOL 10/21/2018 0.59 BHCG DOWNS 10/21/2018 24,526.0 AFP-MS MoM 10/21/2018 0.99 BHCG MoM 10/21/2018 0.64 INHIBIN MoM 10/21/2018 0.67 E3 MoM 10/21/2018 0.86 EQ AGE RSK 10/21/2018 < 15.0 DS APR 10/21/2018 1:749 DS INTERP 10/21/2018 See Note DS RSK 10/21/2018 1:43470 DS SCRN 10/21/2018 Negative TRISOMY 18 10/21/2018 See Note ES RSK 10/21/2018 1:39790 ES SCRN 10/21/2018 Negative OSB INTERP 10/21/2018 See Note OSB RSK 10/21/2018 1:47452 OSB SCRN 10/21/2018 Negative INTERPRETATION 10/21/2018 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 AGE 0710/04/2018 12w6d INS. DEP 10/04/2018 No MULT GEST 10/04/2018 No NT 10/04/2018 1.80 NTD HX 10/04/2018 No RACE 10/04/2018 UPPER SHAPER 10/04/2018 000 BHCG MoM 10/04/2018 0.47 CRL GEST 10/04/2018 89 EQ AGE RSK 10/04/2018 < 15.0 DS APR 10/04/2018 1:698 DS INTERP 10/04/2018 See Note DS RSK 10/04/2018 1:60294 DS SCRN 10/04/2018 Negative TRISOMY 18 10/04/2018 See Note ES RSK 10/04/2018 ~ 1:6280 ES SCRN 10/04/2018 Negative NT MoM 10/04/2018 1.08 BHCG DOWNS 10/04/2018 38,972.0 INTERPRETATION 10/04/2018 N GABBI-A 10/04/2018 735.0 GABBI-A MoM 10/04/2018 0.79 US DATE 10/04/2018 [id number] WEIGHT 10/04/2018 208 SMOKER 10/04/2018 Yes Radiology No new radiology. Allergies Margie has No Known Allergies. Medications Margie has a current medication list which includes the following prescription(s ): qpfnipercifjd-uy-ntkj-minerals, multivitamin, norgestimate-ethinyl estradiol, and amoxicillin-pot omzksxbndnx324 mg. Review of Systems Constitutional: Negative. HENT: Negative. Eyes: Negative. Respiratory: Negative. Breasts: Negative. Cardiovascular: Negative. Gastrointestinal: Negative. Genitourinary: Negative. Musculoskeletal: Negative. Skin: Negative. Neurological: Negative. Psychiatric/Behavioral: Negative. Endocrine: Endocrine negative BP 124/83 (BP Location: Right arm, Patient Position: Sitting, BP CUFF SIZE: Adult Large) | Pulse 85 | Temp 36.6 C (97.8 F) (Oral) | Resp 16 | Ht 5' 5 " (1.651 m) | Wt 216 lb 4 oz (98.1 kg) | LMP 07/06/2018 (Approximate) | BMI 35.99 kg/m Pregravid BMI: Could not be calculated Physical Exam PHYSICAL: General Exam: Neurological: Normal Abdomen: Normal gravid Extremities: Normal Pelvic Exam: Uterus: 19 Weeks Assessment/Plan Return to clinic in 4 weeks. Denies zika virus risk, signs and symptoms such as fever,rash,joint pain, conjunctivitis (red eyes),muscle pain, headaches; outside [place] travel to areas affected by zika, and FOB exposure to zika. Educated on use of mosquito repellent. Supervision of high risk in second trimester (primary encounter diagnosis) Multiparity History of section Comment: routine Plan: POCT URINALYSIS W SPECIFIC GRAVITY Obesity affecting in second trimester Comment: see bmi Plan: limit weight gain and sensible diet. Rubella non-immune status, antepartum Comment: no mgmt today Plan: address pp This visit did not involve counseling and coordination that comprised more than 50% of the visit time .LIZ Ashton 11/19/2018 1:14 PM . documented in this encounter Plan of Treatment Date Type Specialty Care Team Description 12/17/2018 Routine Visit OB Satellites [facility], [facility] [address] [place] [address] [phone] Health Maintenance Due Date Last Done Comments PNEUMOCOCCAL 0-64 YEARS COMBINED 1995 SERIES (1 of 1 - PPSV23) INFLUENZA VACCINE (#1) 2018 PAP SMEAR 02/16/2021 02/16/2018, 07/04/2014, 03/04/2011, Additional history exists DTaP,Tdap,and Td Vaccines (3 - Td) 12/18/2024 12/18/2014, 06/02/2013 documented as of this encounter Procedures Procedure Name Priority Date/Time Associated Diagnosis Comments POCT URINALYSIS Routine 11/19/2018 12:58 PM Supervision of high Results for this CDT risk in procedure are in second trimester the results section. documented in this encounter Results POCT URINALYSIS W SPECIFIC GRAVITY (11/19/2018 12:58 PM CDT) POCT U SP GRAV . 1.005 - 1.025 mg/dl POCT PH U 6 5 - 8 mg/dl POCT U LEUK EST Neg Negative - Negative POCT U NIT Neg Negative - Negative POCT U PROT Trace Negative - Negative POCT U GLU Neg Negative - Negative POCT U KETONE None Negative - Negative POCT U UROBILI . 0.2 - 1 mg/dl POCT U BILI . Negative - Negative POCT U BLD Large Negative - Negative POCT U COLOR POCT U APPEAR Specimen Urine - URINE, CLEAN CATCH documented in this encounter Visit Diagnoses Diagnosis Supervision of high risk in second trimester - Primary Unspecified high-risk Multiparity History of section Other postprocedural status Obesity affecting in second trimester Rubella non-immune status, antepartum Other specified complication, antepartum documented in this encounter Insurance Payer Benefit Plan / Subscriber ID Effective Dates Phone Address Type Group [facility] xxxxxxxxx 2018-[facility] Medicaid COMM PLAN - PLUS t MANAGED MEDICAID documented as of this encounter
--- OUTSIDE RECORDS SUMMARY | 2018-11-25 15:01 | XMS REPORT | Summary of Care ---
:1990 Author Organization [facility] Address [address] [place] [address] Care Team Providers Name Role Phone RosaChilango Insurance Hmo Marjorie Lin [facility] Primary Care Provider Reason for Visit Reason Comments ULTRASOUND (Routine) Status Reason Specialty Diagnoses / Referred By Referred To Procedures Contact Contact Closed Maternal Diagnoses Supervision of high risk in first trimester Riley, Medicine Procedures CONSULT MATERNAL MEDICINE ULTRASOUND Preferred Location: Shahla Trinidad, [facility] [address] [place] [address] Encounter Details Date Type Department Care Team Description 11/16/2018 Punch Operator Visit [facility] Criss Bruno Maternal care for scar from previous delivery, unspecified prior delivery type; Ultrasound- Shahla Donovan MD Encounter for screening for malformation using ultrasound [address] [place] [address] [place], [place] [phone] Allergies No Known Allergiesdocumented as of this encounter (statuses as of 11/16/2018) Medications Medication Sig Dispensed Refills Start Date End Date Status amoxicillin-pot Take 1 tablet by 21 tablet 0 12/17/2017 Active clavulanate 500 mg mouth 3 (three) (AUGMENTIN) 500-125 mg times daily. tablet norgestimate-ethinyl Take 1 tablet by 1 Package 2 06/30/2018 Active estradiol (ORTHO mouth daily. TRI-CYCLEN, 28,) 0.18/0.215/0.25 mg-35 mcg (28) tabletIndications: Encounter for other contraceptive management Ajwlikkcxgeug-Ez-Sfvv-Mi Take by mouth. 0 Active nerals (MULTIPLE VITAMIN, WOMENS) Tab multivitamin Take 1 tablet by 90 tablet 3 08/05/2018 Active ( VITAMIN) mouth daily. 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 Leveler Utility Altered mental status 08/24/2014 08/29/2016 Drug abuse, opioid type 07/06/2014 08/29/2016 Overview: 914 + cocaine drug screen Multiparous 07/06/2014 08/29/2016 Supervision of other high-risk 06/03/2014 08/29/2016 Overview: ICD10 Diagnosis Term First Leveler Utility documented as of this encounter (statuses as of 11/16/2018) Immunizations Name Administration Dates Next Due Tdap [...] of this encounter Last Filed Vital Signs Not on filedocumented in this encounter Plan of Treatment Date Type Specialty Care Team Description 11/19/2018 Routine Visit OB Satellites Marjorie Lin, CNP [address] [place], [place] [address] Health Maintenance Due Date Last Done Comments PNEUMOCOCCAL 0-64 YEARS COMBINED 1995 SERIES (1 of 1 - PPSV23) INFLUENZA VACCINE 12/05/2018 PAP SMEAR 02/16/2021 02/16/2018, 07/04/2014, 03/04/2011, Additional history exists DTaP,Tdap,and Td Vaccines (3 - Td) 12/18/2024 12/18/2014, 06/02/2013 documented as of this encounter Results Not on filedocumented in this encounter Visit Diagnoses Diagnosis Maternal care for scar from previous delivery, unspecified prior delivery type Encounter for screening for malformation using ultrasound documented in this encounter Insurance Payer Benefit Plan / Subscriber ID Effective Dates Phone Address Type Group [facility] STAR xxxxxxxxx 2018-[facility] Medicaid COMM PLAN - PLUS t MANAGED MEDICAID documented as of this encounter
--- OUTSIDE RECORDS SUMMARY | 2018-11-25 15:01 | XMS REPORT | Summary of Care ---
:1990 Author Organization [facility] Address [address] [place] [address] Care Team Providers Name Role Phone RosaChilango Insurance Hmo Marjorie Lin [facility] Primary Care Provider Reason for Visit Reason Comments ULTRASOUND (Routine) Status Reason Specialty Diagnoses / Referred By Referred To Procedures Contact Contact Closed Maternal Diagnoses Supervision of high risk in first trimester Riley, Medicine Procedures CONSULT MATERNAL MEDICINE ULTRASOUND Preferred Location: Shahla Trinidad, [facility] [address] [place] [address] Encounter Details Date Type Department Care Team Description 11/16/2018 Trimmer Operator Visit [facility] Criss Bruno Maternal care for scar from previous delivery, unspecified prior delivery type; Ultrasound- Shahla Donovan MD Encounter for screening for malformation using ultrasound [address] [place], [place] [address] [place], [place] [phone] Allergies No Known Allergiesdocumented as of this [...] (28) tabletIndications: Encounter for other contraceptive management Hfeghumpegynt-Lm-Rygv-Mi Take by mouth. 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 Altered mental status 08/24/2014 08/29/2016 Drug abuse, opioid type 07/06/2014 08/29/2016 Overview: 914 + cocaine drug screen Multiparous 07/06/2014 08/29/2016 Supervision of other high-risk 06/03/2014 08/29/2016 Overview: ICD10 Diagnosis Term Construction Administrative Assistant Utility documented as of this encounter (statuses [...] OB Satellites Marjorie Lin, CNP [address] [place], [place] [address] Health Maintenance Due Date Last Done Comments [...] ID Effective Dates Phone Address Type Group [facility] STAR xxxxxxxxx 2018-[facility] Medicaid COMM PLAN - PLUS t MANAGED MEDICAID documented as of this encounter
--- OUTSIDE RECORDS SUMMARY | 2018-11-25 15:01 | XMS REPORT | Summary of Care ---
:1990 Author Organization [facility] Address [address] [place] [address] Care Team Providers Name Role Phone Chilango Lee Insurance Hmo Marjorie Lin [facility] Primary Care Provider Encounter Details Date Type Department Care Team Description 11/23/2018 Abstract [facility] Marjorie Lin, [address] [place] [address] [address] [phone] [place] [address] Allergies No Known Allergiesdocumented as of this encounter (statuses as of 11/23/2018) Medications Medication Sig Dispensed Refills Start Date End Date Status amoxicillin-pot Take 1 tablet by 21 tablet 0 12/17/2017 Active clavulanate 500 mg mouth 3 (three) (AUGMENTIN) 500-125 mg times daily. tablet norgestimate-ethinyl Take 1 tablet by 1 Package 2 06/30/2018 Active estradiol (ORTHO mouth daily. TRI-CYCLEN, 28,) 0.18/0.215/0.25 mg-35 mcg (28) tabletIndications: Encounter for other contraceptive management Ejchopvempqyc-Qa-Otxr-Mi Take by mouth. 0 Active nerals (MULTIPLE VITAMIN, WOMENS) Tab multivitamin Take 1 tablet by 90 tablet 3 08/05/2018 Active ( VITAMIN) mouth daily. 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 Altered mental status 08/24/2014 08/29/2016 Drug abuse, opioid type 07/06/2014 08/29/2016 Overview: 12/18 + cocaine drug screen Multiparous 07/06/2014 08/29/2016 Supervision of other high-risk 06/03/2014 08/29/2016 Overview: ICD10 Diagnosis Term 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 Furnace Tender Utility documented as of this encounter (statuses as of 11/23/2018) Immunizations Name Administration Dates Next Due Tdap [...] 12/17/2018 Routine Visit OB Satellites Marjorie Lin, CNP [address] [place] [address] [phone] Health Maintenance Due Date Last Done Comments PNEUMOCOCCAL 0-64 YEARS COMBINED 1995 SERIES (1 of 1 - PPSV23) INFLUENZA VACCINE (#1) 2018 PAP SMEAR 02/16/2021 02/16/2018, 07/04/2014, 03/04/2011, Additional history exists DTaP,Tdap,and Td Vaccines (3 - Td) 12/18/2024 12/18/2014, 06/02/2013 documented as of this encounter Results Not on filedocumented in this encounter Insurance Payer Benefit Plan / Subscriber ID Effective Dates Phone Address Type Group [facility] STAR xxxxxxxxx 2018-[place] Medicaid COMM PLAN - PLUS t MANAGED MEDICAID documented as of this encounter
[2018-11-25] MEDS ORDERED: LIDOCAINE 1% MPF 5 ML VIAL ONE (15:28)
--- NOTE | 2018-11-25 15:41 | ER ---
Nurse's Notes [facility] Name: Margie Coley Age: 28 yrs Sex: Female : 1990 Arrival Date: 11/25/2018 Time: 15:00 Bed Treatment [facility] MD: Diagnosis: Cellulitis of buttock-left Presentation: 11/25 15:03 Presenting complaint: Patient states: I have a bite or something on my butt and I am 20 la1 weeks , It has been there for a week now. Transition of care: patient was not received from another setting of care. Onset of symptoms was November 25, 2018. Risk Assessment: Do you want to hurt yourself or someone else? Patient reports no desire to harm self or others. Initial Sepsis Screen: Does the patient meet any 2 criteria? No. Patient's initial sepsis screen is negative. Does the patient have a suspected source of infection? No. Patient's initial sepsis screen is negative. Care prior to arrival: None. 15:03 Method Of Arrival: Ambulatory la1 15:03 Acuity: SONIA 4 la1 Historical: - Allergies: 15:04 No Known Allergies; la1 - PMHx: 15:04 Anemia; Anxiety; back problems; Bipolar disorder; Depression; la1 - Immunization history:: Adult Immunizations up to date. - Social history:: Smoking status: Patient/guardian denies using tobacco. - Ebola Screening: : No symptoms or risks identified at this time. Screenin:15 Abuse screen: Denies threats or abuse. Denies injuries from another. Nutritional hb screening: No deficits noted. Tuberculosis screening: No symptoms or risk factors identified. Fall Risk None identified. Assessment: 15:15 General: Appears in no apparent distress. Behavior is calm, cooperative. Pain: Pain hb currently is 3 out of 10 on a pain scale. Neuro: Level of Consciousness is awake, alert, obeys commands, Oriented to person, place, time, situation. Cardiovascular: Capillary refill < 3 seconds Patient's skin is warm and dry. Respiratory: Airway is patent Respiratory effort is even, unlabored, Respiratory pattern is regular, symmetrical. GI: No signs and/or symptoms were reported involving the gastrointestinal system. : No signs and/or symptoms were reported regarding the genitourinary system. EENT: No signs and/or symptoms were reported regarding the EENT system. Derm: Skin is healthy with good turgor, Skin is pink, warm \T\ dry. Abscess located on left gluteus kiko is half dollar sized, has no drainage, is hot to touch, is red. Musculoskeletal: No signs and/or symptoms reported regarding the musculoskeletal system. Vital Signs: 15:04 BP 117 / 78; Pulse 95; Resp 16; Temp 98.6; Pulse Ox 98% on R/A; Weight 95.25 kg; Height la1 2 ft. 3 in. (68.58 cm); 15:04 Body Mass Index 202.53 (95.25 kg, 68.58 cm) la1 ED Course: 15:00 Patient arrived in ED. as 15:04 Triage completed. la1 15:05 Arm band placed on left wrist. la1 15:13 Vince Chapman PA is PHCP. cp 15:13 Vince Nunez MD is Attending Physician. cp 15:15 Patient has correct armband on for positive identification. Bed in low position. Call hb light in reach. 15:40 Assist provider with I \T\ D: of an abscess on left buttock Performed by Vince FREEMAN hb Dressing with BandAid Patient tolerated well. Patient did not have IV access during this emergency room visit. 15:55 Ingrid Ayoub, RN is Primary Nurse. hb Administered Medications: 15:26 Drug: Lidocaine (1 %) 5 mg Route: Infiltration; hb Outcome: 15:40 Discharge ordered by . cp 15:50 Discharged to home ambulatory. hb 15:50 Condition: stable 15:50 Discharge instructions given to patient, Instructed on discharge instructions, follow up and referral plans. medication usage, wound care, Demonstrated understanding of instructions, follow-up care, medications, wound care, Prescriptions given X 1. 15:55 Patient left the ED. hb Signatures: Pita Pendleton Lee RN RN la1 Vince Chapman PA PA cp Baxter, Heather, RN RN hb
--- NOTE | 2018-11-25 15:41 | EDPHYS ---
Physician Documentation [facility] Name: Margie Coley Age: 28 yrs Sex: Female : 1990 Arrival Date: 11/25/2018 Time: 15:00 Bed Treatment Private MD: ED Physician Vince Nunez HPI: 11/25 15:30 This 28 yrs old Female presents to ER via Ambulatory with complaints of Insect cp Bite. 15:30 Description: erythematous, swollen. Onset: The symptoms/episode began/occurred 1 cp week(s) ago. 15:30 the patient presents with a swollen area of the left buttock. Possible cause(s): insect cp sting. Associated signs and symptoms: Pertinent negatives: discharge, drainage, fever. Historical: - Allergies: 15:04 No Known Allergies; la1 - PMHx: 15:04 Anemia; Anxiety; back problems; Bipolar disorder; Depression; la1 - Immunization history:: Adult Immunizations up to date. - Social history:: Smoking status: Patient/guardian denies using tobacco. - Ebola Screening: : No symptoms or risks identified at this time. ROS: 15:35 Constitutional: Negative for body aches, chills, fever, poor PO intake. cp 15:35 Eyes: Negative for injury, pain, redness, and discharge. cp 15:35 ENT: Negative for drainage from ear(s), ear pain, sore throat, difficulty swallowing, difficulty handling secretions. 15:35 Cardiovascular: Negative for chest pain. 15:35 Respiratory: Negative for cough, wheezing. 15:35 Abdomen/GI: Negative for abdominal pain, nausea, vomiting, and diarrhea. 15:35 Skin: Positive for erythema, swelling, of the left buttock. 15:35 All other systems are negative. Exam: 15:38 Constitutional: The patient appears in no acute distress, alert, awake, non-toxic, well cp developed, well nourished. 15:38 Skin: cellulitis, that is mild, well demarcated, on the left buttock. cp Vital Signs: 15:04 BP 117 / 78; Pulse 95; Resp 16; Temp 98.6; Pulse Ox 98% on R/A; Weight 95.25 kg; Height la1 2 ft. 3 in. (68.58 cm); 15:04 Body Mass Index 202.53 (95.25 kg, 68.58 cm) la1 MDM: 15:17 Patient medically screened. [facility] 15:30 Differential diagnosis: abscess, cellulitis, insect bite. 15:40 Data reviewed: vital signs, nurses notes, and as a result, I will discharge patient. 11/25 15:25 Order name: I\T\D Setup; Complete Time: 15:55 Administered Medications: 15:26 Drug: Lidocaine (1 %) 5 mg Route: Infiltration; hb Disposition: 16:00 Chart complete. 11/26 07:08 Co-signature as Attending Physician, Vince Nunez MD I agree with the assessment and [facility] plan of care. Disposition: 11/25/18 15:40 Discharged to Home. Impression: Cellulitis of buttock - left. - Condition is Stable. - Discharge Instructions: Cellulitis, Adult. - Prescriptions for Clindamycin HCl 300 mg Oral Capsule - take 1 capsule by ORAL route every 6 hours for 10 days; 40 capsule. - Medication Reconciliation Form, Thank You Letter, Antibiotic Education, Prescription Opioid Use form. - Follow up: Private Physician; When: 48 Hours; Reason: Wound Recheck. - Problem is new. - Symptoms have improved. Signatures: Vince Nunez MD MD cha Attema, Lee RN RN la1 Vince Chapman PA PA Ingrid Ayoub, RN RN Corrections: (The following items were deleted from the chart) 11/25 15:55 15:40 11/25/2018 15:40 Discharged to Home. Impression: Cellulitis of buttock - left. hb Condition is Stable. Forms are Medication Reconciliation Form, Thank You Letter, Antibiotic Education, Prescription Opioid Use. Follow up: Private Physician; When: 48 Hours; Reason: Wound Recheck. Problem is new. Symptoms have improved. cp
[2018-11-25 17:23] VITALS: BP 117/78; TEMP 98.6; O2SAT 98
== END 2018-11-25 15:55 | disposition home or self-care (01) ==
LOC: ER 14:58
DX: O26.892 Other specified pregnancy related conditions, second trimester (principal); L03.317 Cellulitis of buttock; Z3A.20 20 weeks gestation of pregnancy
CPT/HCPCS: 99283

== ENCOUNTER 2019-03-11 06:39 | Emergency (ER) | payer OTHER ==
--- OUTSIDE RECORDS SUMMARY | 2019-03-11 06:42 | XMS REPORT ---
:1990 Author [facility] Address [address] [place] [address] Dr. Keen [address] [place] [id number] Care Team Providers Name Role Phone Unavailable Unavailable Unavailable Problems This patient has no known problems. Allergies, Adverse Reactions, Alerts This patient has no known allergies or adverse reactions. Medications This patient has no known medications.
--- OUTSIDE RECORDS SUMMARY | 2019-03-11 06:43 | XMS REPORT | Summary of Care ---
:1990 Author Organization [facility] Address [address] [place] [id number] Care Team Providers Name Role Phone Chilango Lee Insurance Hmo Marjorie Lin DANTE Primary Care Provider Reason for Referral (Routine) Status Reason Specialty Diagnoses / Referred By Referred To Procedures Contact Contact New Request Maternal Diagnoses Supervision of high risk in second trimester [place], Medicine Procedures CONSULT MATERNAL MEDICINE ULTRASOUND LIZ Zelaya [address] [place] [address] Reason for Visit Reason Comments Care Encounter Details Date Type Department Care Team Description 12/17/[address] [facility]- [place], Supervision of high risk in second trimester (Primary Dx); Visit [place] LIZ Zelaya Multiparity; [address] [place] [address] History of section; [facility] Obesity affecting in second trimester [id number] [facility] A [phone] [place] [address] Allergies No Known Allergiesdocumented as of this encounter (statuses as of 12/17/2018) Medications Medication Sig Dispensed Refills Start Date End Date Status amoxicillin-pot Take 1 tablet by 21 tablet 0 12/17/2017 Active clavulanate 500 mg mouth 3 (three) (AUGMENTIN) 500-125 mg times daily. tablet norgestimate-ethinyl Take 1 tablet by 1 Package 2 06/30/2018 Active estradiol (ORTHO mouth daily. TRI-CYCLEN, 28,) 0.18/0.215/0.25 mg-35 mcg (28) tabletIndications: Encounter for other contraceptive management Iakcpeauanzle-Wo-Igib-Mi Take by mouth. 0 Active nerals (MULTIPLE VITAMIN, WOMENS) Tab multivitamin Take 1 tablet by 90 tablet 3 08/05/2018 Active ( VITAMIN) mouth daily. 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 Altered mental status 08/24/2014 08/29/2016 Drug abuse, opioid type 07/06/2014 08/29/2016 Overview: 12/18 + cocaine drug screen Multiparous 07/06/2014 08/29/2016 Supervision of other high-risk 06/03/2014 08/29/2016 Overview: ICD10 Diagnosis 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 Utility documented as of this encounter (statuses as of 12/17/2018) Immunizations Name Administration Dates Next Due Tdap [...] Sign Reading Time Taken Comments Blood Pressure 121/77 12/17/2018 1:08 PM CDT Pulse 76 12/17/2018 1:08 PM CDT Temperature 36.4 C (97.6 F) 12/17/2018 1:08 PM CDT Respiratory Rate 16 12/17/2018 1:08 PM CDT Oxygen Saturation - - Inhaled Oxygen Concentration - - Weight 101.2 kg (223 lb 1 oz) 12/17/2018 1:08 PM CDT Height 165.1 cm (5' 5") 12/17/2018 1:08 PM CDT Body Mass Index 37.12 12/17/2018 1:08 PM CDT documented in this encounter Progress Notes Marjorie Lin, WHCNP - 12/17/2018 1:00 PM CDT Chief complaint: Chief Complaint Patient presents with Care HPI CC: Follow Up Visit Margie Coley is a 28 year old, , /White female. Patient's last menstrual period was 07/06/2018 (approximate). She is 23w3d with an intrauterine . Her estimated date [...] file Gets together: Not on file Attends yazidism service: Not on file Active member of [...] No new labs and Routine Visit on 11/19/2018 Component Date Value POCT U SP GRAV 11/19/2018 . POCT PH U 11/19/2018 6 POCT U LEUK EST 11/19/2018 Neg POCT U NIT 11/19/2018 Neg POCT U PROT 11/19/2018 Trace POCT U GLU 11/19/2018 Neg POCT U KETONE 11/19/2018 None POCT U UROBILI 11/19/2018 . POCT U BILI 11/19/2018 . POCT U BLD 11/19/2018 Large Routine Visit on 10/21/2018 Component Date Value [...] 15,2 INS. DEP 10/21/2018 No LMP 10/21/2018 [id number] METHOD 10/21/2018 LMP MULT GEST 10/21/2018 No [...] INTERP 10/21/2018 See Note DS RSK 10/21/2018 1:61760 DS SCRN 10/21/2018 Negative TRISOMY 18 10/21/2018 See Note ES RSK 10/21/2018 1:22118 ES SCRN 10/21/2018 Negative OSB INTERP 10/21/2018 See Note OSB RSK 10/21/2018 1:91026 OSB SCRN 10/21/2018 Negative INTERPRETATION 10/21/2018 N Electrical Instrument Technician Visit on 10/04/2018 Component Date Value CRL 10/04/2018 64.9 GEST. AGE 0710/[birth year]/2018 12w6d INS. 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 Allergies Margie has No Known Allergies. Medications Margie has a current medication list which includes the following prescription(s ): icmwnkiyxerij-kk-seby-minerals, multivitamin, norgestimate-ethinyl estradiol, and amoxicillin-pot ndhtnuomjix624 mg. Review of Systems Constitutional: Negative. HENT: Negative. Eyes: Negative. Respiratory: Negative. Breasts: Negative. Cardiovascular: Negative. Gastrointestinal: Negative. Genitourinary: Negative. Musculoskeletal: Negative. Skin: Negative. Neurological: Negative. Psychiatric/Behavioral: Negative. Endocrine: Endocrine negative BP 121/77 (BP Location: Right arm, Patient Position: Sitting, BP CUFF SIZE: Adult Large) | Pulse 76 | Temp 36.4 C (97.6 F) (Oral) | Resp 16 | Ht 5' 5 " (1.651 m) | Wt 223 lb 1 oz (101.2 kg) | LMP 07/06/2018 (Approximate) | BMI 37.12 kg/m Pregravid BMI: Could not be calculated Physical Exam PHYSICAL: General Exam: Neurological: Normal Abdomen: Normal gravid Extremities: Normal Pelvic Exam: Uterus: 25 Weeks Assessment/Plan Return to clinic in 4 [...] Comment: routine Plan: POCT URINALYSIS W SPECIFIC GRAVITY, Glucose 1 Hour Post Prandial, CBC with Differential, CONSULT MATERNAL MEDICINE ULTRASOUND Obesity affecting in second trimester Comment: see bmi Plan: limit weight gain and sensible diet. This visit did not involve counseling and coordination that comprised more than 50% of the visit time. LIZ Ashton 12/17/2018 1:33 PM documented in this encounter Plan of Treatment Date Type Specialty Care Team Description 01/13/2019 Routine Visit [facility] Marjorie Lin WHCNP [address] [place] [address] [phone] Name Type Priority Associated Diagnoses Order Schedule Glucose 1 Hour Post LAB Routine Supervision of high risk Expected: 2018, Prandial in second Expires: 02/16/2019 trimester CBC with Differential LAB Routine Supervision of high risk Expected: 2018, in second Expires: 02/16/2019 trimester Health Maintenance Due Date Last Done Comments PNEUMOCOCCAL 0-64 YEARS COMBINED 1995 SERIES (1 of 1 - PPSV23) INFLUENZA VACCINE (#1) 2018 PAP SMEAR 02/16/2021 02/16/2018, 07/04/2014, 03/04/2011, Additional history exists DTaP,Tdap,and Td Vaccines (3 - Td) 12/18/2024 12/18/2014, 06/02/2013 documented as of this encounter Procedures Procedure Name Priority Date/Time Associated Diagnosis Comments POCT URINALYSIS Routine 12/17/2018 1:12 PM Supervision of high Results for this CDT risk in procedure are in second trimester the results section. documented in this encounter Results POCT URINALYSIS W SPECIFIC GRAVITY (12/17/2018 1:12 PM CDT) POCT U SP GRAV . 1.005 - 1.025 mg/dl POCT PH U . 5 - 8 mg/dl POCT U LEUK EST . Negative - Negative POCT U NIT . Negative - Negative POCT U PROT Trace Negative - Negative POCT U GLU Neg. Negative - Negative POCT U KETONE . Negative - Negative POCT U UROBILI . 0.2 - 1 mg/dl POCT U BILI . Negative - Negative POCT U BLD . Negative - Negative POCT U COLOR POCT U APPEAR Specimen Urine - URINE, CLEAN CATCH documented in this encounter Visit Diagnoses Diagnosis Supervision of high risk in second trimester - Primary Unspecified high-risk Multiparity History of section Other postprocedural status Obesity affecting in second trimester documented in this encounter Insurance Payer Benefit Plan / Subscriber ID Effective Dates Phone Address Type Group [facility] xxxxxxxxx 2018-[employer] Medicaid COMM PLAN - PLUS t MANAGED MEDICAID documented as of this encounter
--- OUTSIDE RECORDS SUMMARY | 2019-03-11 06:43 | XMS REPORT | Summary of Care ---
:1990 Author Organization [facility] Address [address] [place] [id number] Care Team Providers Name Role Phone Chilango Lee Insurance Hmo Marjorie Lin DANTE Primary Care Provider Reason for Referral (Routine) Status Reason Specialty Diagnoses / Referred By Referred To Procedures Contact Contact New Request Maternal Diagnoses Supervision of high risk in second trimester [place], Medicine Procedures CONSULT MATERNAL MEDICINE ULTRASOUND LIZ Zelaya [address] [place] [address] Reason for Visit Reason Comments Care Encounter Details Date Type Department Care Team Description 12/17/2018 Routine [facility]- [place], Supervision of high risk in second trimester (Primary Dx); Visit [place] LIZ Zelaya Multiparity; [address] [place] [address] History of section; [facility] Obesity affecting in second trimester [id number] [facility] A [phone] [place] [address] Allergies No Known Allergiesdocumented as [...] (28) tabletIndications: Encounter for other contraceptive management Qyqlsduocikmq-Dk-Fbpy-Mi Take by mouth. 0 Active nerals (MULTIPLE [...] 10/17/20142016 puerperium, antepartum Overview: ICD10 Diagnosis Term Psych Arnp Utility Altered mental status 08/24/2014 08/29/2016 Drug abuse, opioid type 07/06/2014 08/29/2016 Overview: 12/18 + cocaine drug screen Multiparous 07/06/2014 08/29/2016 Supervision of other high-risk 06/03/2014 08/29/2016 Overview: ICD10 Diagnosis Term Psych Arnp Utility documented as of this encounter (statuses [...] file Gets together: Not on file Attends oriental orthodox service: Not on file Active member of [...] 15,2 INS. DEP 10/21/2018 No LMP 10/21/2018 [id number] METHOD 10/21/2018 LMP MULT GEST 10/21/2018 No [...] INTERP 10/21/2018 See Note DS RSK 10/21/2018 1:50455 DS SCRN 10/21/2018 Negative TRISOMY 18 10/21/2018 See Note ES RSK 10/21/2018 1:82436 ES SCRN 10/21/2018 Negative OSB INTERP 10/21/2018 See Note OSB RSK 10/21/2018 1:01250 OSB SCRN 10/21/2018 Negative INTERPRETATION 10/21/2018 N Reformatory Attendant Visit on 10/04/2018 Component Date Value CRL 10/04/2018 64.9 GEST. AGE 0710/[birth year]/2018 12w6d INS. 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 Allergies Margie has No Known Allergies. Medications Margie has a current medication list which includes the following prescription(s ): jmvcpknksbtlv-fr-jjuc-minerals, multivitamin, norgestimate-ethinyl estradiol, and amoxicillin-pot ispiibzrpgz997 mg. Review of Systems Constitutional: Negative. HENT: [...] OB Satellites Marjorie Lin WHCNP [address] [place] [address] [phone] Name Type Priority Associated Diagnoses Order Schedule [...] ID Effective Dates Phone Address Type Group [facility] xxxxxxxxx 2018-[employer] Medicaid COMM PLAN - PLUS t MANAGED MEDICAID documented as of this encounter
[2019-03-11 08:38] LABS: Urine Blood 1+ (NEG); Urine Glucose NEGATIVE (NEG); Urine Protein 1+ (NEG); Urine Specific Gravity 1.015 (1.005-1.030)
[2019-03-11 09:14] LABS: Urine Bacteria <20 /HPF (<20); Urine Culture Reflex Order NOT NEEDED
--- NOTE | 2019-03-11 09:19 | ER ---
Nurse's Notes [facility] [place], [place] Name: Margie Coley Age: 28 yrs Sex: Female : 1990 Arrival Date: 03/11/2019 Time: 06:41 Bed 15 Private MD: Diagnosis: Cough;Nasal congestion Presentation: 03/11 06:50 Presenting complaint: Patient states: she woke with green mucous and cough. she stated ak1 she had a panic attack. pt finished metronidazole 500mg for vaginal infection. pt finished fluconazole yesterday. pt c/o lower abd pain stating same pain as before she started medication for vaginal infection. Transition of care: patient was not received from another setting of care. Onset of symptoms was March 11, 2019. Risk Assessment: Do you want to hurt yourself or someone else? Patient reports no desire to harm self or others. Initial Sepsis Screen: Does the patient meet any 2 criteria? No. Patient's initial sepsis screen is negative. Does the patient have a suspected source of infection? No. Patient's initial sepsis screen is negative. Care prior to arrival: None. 06:50 Acuity: SONIA 3 ak1 06:50 Method Of Arrival: Ambulatory ak1 Triage Assessment: 06:54 General: Appears in no apparent distress. comfortable, Behavior is calm, cooperative. ak1 06:55 Respiratory: Onset: The symptoms/episode began/occurred today. ak1 08:51 Respiratory: Reports cough that is non-productive, since yesterday the patient has mild tw2 shortness of breath. 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 - Social history:: Smoking status: Patient/guardian denies using tobacco. - Ebola Screening: : No symptoms or risks identified at this time. Screenin:54 Abuse screen: Denies threats or abuse. Denies injuries from another. Nutritional ak1 screening: No deficits noted. Tuberculosis screening: No symptoms or risk factors identified. Fall Risk None identified. Assessment: 06:54 Respiratory: Airway is patent Respiratory effort is unlabored. ak1 06:55 Reassessment: pt assessed by Unruly Francois GENERATION ENGINEERING TECHNOLOGIST with instructions for pt to be seen and ak1 assessed in L\T\D. 08:13 Reassessment: pt back from L\T\D at this time, NAD. tw2 08:13 General: Appears in no apparent distress. Behavior is calm, cooperative, appropriate tw2 for age. Pain: Denies pain. Neuro: Level of Consciousness is awake, alert, obeys commands, Oriented to person, place, time, situation. Cardiovascular: Heart tones S1 S2 Patient's skin is warm and dry. Rhythm is regular. Respiratory: Airway is patent Respiratory effort is even, unlabored, Respiratory pattern is regular, symmetrical, Breath sounds are clear bilaterally. Respiratory: Airway is patent. GI: No signs and/or symptoms were reported involving the gastrointestinal system. Abdomen is round pt is Bowel sounds present X 4 quads. : No signs and/or symptoms were reported regarding the genitourinary system. EENT: No signs and/or symptoms were reported regarding the EENT system. Derm: No signs and/or symptoms reported regarding the dermatologic system. Musculoskeletal: Range of motion: intact in all extremities. 08:17 Reassessment: provider ANDREZ Fagan at bedside at this time. tw2 09:23 Reassessment: Patient appears in no apparent distress at this time. No changes from tw2 previously documented assessment. Patient and/or family updated on plan of care and expected duration. Pain level reassessed. Patient is alert, oriented x 3, equal unlabored respirations, skin warm/dry/pink. Vital Signs: 06:49 BP 141 / 98; Pulse 88; Resp 20; Temp 98.0(O); Pulse Ox 100% on R/A; Weight 108.86 kg ak1 (R); Height 5 ft. 6 in. (167.64 cm) (R); Pain 7/10; 08:17 BP 128 / 76; Pulse 98; Resp 17; Pulse Ox 100% on R/A; tw2 09:23 BP 128 / 84; Pulse 84; Resp 17; Pulse Ox 100% on R/A; tw2 06:49 Body Mass Index 38.74 (108.86 kg, 167.64 cm) ak1 ED Course: 06:41 Patient arrived in ED. ds1 06:41 Rylan Francois FNP-C is [facility]. la1 06:41 Vince Nunez MD is Attending Physician. la1 06:43 Rylan Francois FNP-C is [facility]. la1 06:43 Vince Nunez MD is Attending Physician. la1 06:49 Arm band placed on Patient placed in an exam room, on a stretcher, on pulse oximetry, ak1 Patient notified of wait time. 06:53 Triage completed. ak1 06:54 Patient has correct armband on for positive identification. ak1 08:12 Lorrie Roa, RN is Primary Nurse. tw2 08:42 Urine collected: clean catch specimen, clear, Amount Voided: 80mL. ms 09:24 No provider procedures requiring assistance completed. Patient did not have IV access tw2 during this emergency room visit. Administered Medications: No medications were administered Outcome: 09:18 Discharge ordered by . la1 09:25 Discharged to home ambulatory. tw2 09:25 Condition: stable 09:25 Discharge instructions given to patient, Instructed on discharge instructions, follow up and referral plans. Demonstrated understanding of instructions, follow-up care. 09:25 Patient left the ED. tw2 Signatures: Anamaria Donald ds1 Andree Holden ms Rylan Francois FNP-C INFORMATION SECURITY SPECIALIST-[facility] Estela Fine, RN RN ak1 Lorrie Roa, SAMSON RN tw2
--- NOTE | 2019-03-11 09:19 | EDPHYS ---
Physician Documentation [facility] Name: Margie Coley Age: 28 yrs Sex: Female : 1990 Arrival Date: 03/11/2019 Time: 06:41 Bed 15 Private MD: ED Physician Vince Nunez HPI: 03/11 08:20 This 28 yrs old Female presents to ER via Ambulatory with complaints of la1 Breathing Difficulty, Abdominal Pain - 36 Wks Preg. 08:20 This 28 yrs old Female presents to ER via Ambulatory with complaints of Cough la1 and Congestion. 08:20 Onset: The symptoms/episode began/occurred yesterday. Duration: The symptoms are la1 intermittent. The patient's shortness of breath is aggravated by coughing, is alleviated by nothing. Associated signs and symptoms: Pertinent negatives: chest pain, diaphoresis, dizziness, fever, hemoptysis, nausea, visual changes, vomiting. Severity of symptoms: At their worst the symptoms were very mild. 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 Pt denies vaginal bleeding or discharge, is only concerned due to the green mucus from her nose and wondering if she needs antibiotics. . 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 - Social history:: Smoking status: Patient/guardian denies using tobacco. - Ebola Screening: : No symptoms or risks identified at this time. ROS: 08:22 Constitutional: Negative for fever, chills, and weight loss, Eyes: Negative for injury, la1 pain, redness, and discharge, ENT: + for rhinorrhea Neck: Negative for injury, pain, and swelling, Cardiovascular: Negative for chest pain, palpitations, and edema, Respiratory: Negative for shortness of breath, cough, wheezing, and pleuritic chest pain, Abdomen/GI: Negative for abdominal pain, nausea, vomiting, diarrhea, and constipation, Back: Negative for injury and pain, : Negative for injury, bleeding, discharge, and swelling, MS/Extremity: Negative for injury and deformity, Neuro: Negative for headache, weakness, numbness, tingling, and seizure. Exam: 08:23 Constitutional: This is a well developed, well nourished patient who is awake, alert, la1 and in no acute distress. Head/Face: Normocephalic, atraumatic. Eyes: Pupils equal round and reactive to light, extra-ocular motions intact. Periorbital areas with no swelling, redness, or edema. ENT: mild mucosal erythema in nasal turbinates, Tympanic membranes are normal and external auditory canals are clear. Oropharynx with no redness, swelling, or masses, exudates, or evidence of obstruction, uvula midline. Mucous membranes moist. Neck: and no cervical lymphadenopathy. Supple, full range of motion without nuchal rigidity, or vertebral point tenderness. No Meningismus. Chest/axilla: Normal chest wall appearance and motion. Nontender with no deformity. No lesions are appreciated. Cardiovascular: Regular rate and rhythm with a normal S1 and S2. No gallops, murmurs, or rubs. Normal PMI, no JVD. No pulse deficits. Respiratory: Lungs have equal breath sounds bilaterally, clear to auscultation and percussion. No rales, rhonchi or wheezes noted. No increased work of breathing, no retractions or nasal flaring. 08:23 Abdomen/GI: Inspection: gravid appearance, is noted. 08:23 Neuro: Gait: is steady. Vital Signs: 06:49 BP 141 / 98; Pulse 88; Resp 20; Temp 98.0(O); Pulse Ox 100% on R/A; Weight 108.86 kg ak1 (R); Height 5 ft. 6 in. (167.64 cm) (R); Pain 7/10; 08:17 BP 128 / 76; Pulse 98; Resp 17; Pulse Ox 100% on R/A; tw2 09:23 BP 128 / 84; Pulse 84; Resp 17; Pulse Ox 100% on R/A; tw2 06:49 Body Mass Index 38.74 (108.86 kg, 167.64 cm) ak1 MDM: 06:43 Patient medically screened. la1 06:57 ED course: Evaluated pt in ED, Pt C/O lower abd pain and BP is elevated. Sent to L\T\D la1 for evaluation prior to ED evaluation. . 08:24 ED course: Pt seen and cleared by L\T\D, upon return to ED pt BP is 128/76, states she la1 just wants to know if she needs antibiotics or not. . 09:15 Data reviewed: vital signs, nurses notes, lab test result(s), and as a result, I will la1 discharge patient. Data interpreted: Pulse oximetry: on room air is 100 %. Counseling: I had a detailed discussion with the patient and/or guardian regarding: the historical points, exam findings, and any diagnostic results supporting the discharge/admit diagnosis, lab results, to return to the emergency department if symptoms worsen or persist or if there are any questions or concerns that arise at home. ED course: Pt BP is WNL at this time, no signs of UTI, no suspected bacterial infection. Pt instructed to FU with OB and PCP, return to ED with worsening of symptoms. . 03/11 08:31 Order name: Urine Microscopic Only; Complete Time: 09:15 la1 03/11 08:33 Order name: Urine Dipstick--Ancillary (enter results); Complete Time: 09:15 eb 12 08:31 Order name: Urine Dipstick-Ancillary (obtain specimen); Complete Time: 08:42 la1 Administered Medications: No medications were administered Disposition: 03/11/19 09:18 Discharged to Home. Impression: Cough, Nasal congestion. - Condition is Stable. - Discharge Instructions: Allergies, Adult, Cough, Adult, [id number], Cough, Adult, Allergies, [id number]. - Medication Reconciliation Form, Thank You Letter form. - Follow up: Private Physician; When: 2 - 3 days; Reason: Recheck today's complaints, Re-evaluation by your physician. Follow up: Emergency Department; When: As needed; Reason: Fever > 102 F, Worsening of condition. - Problem is new. - Symptoms are unchanged. Addendum: 03/14/2019 09:21 Co-signature as Attending Physician, Vince Nunez MD I agree with the assessment and c mims plan of care. Signatures: Dispatcher [employer] EDMS Vince Nunez MD MD cha Attema, Lee, HEAVY EQUIPMENT ENGINE MECHANIC-C HEAVY EQUIPMENT ENGINE MECHANIC-Cla1 Estela Fine, RN RN ak1 Lorrie Roa, SAMSON RN tw2 Corrections: (The following items were deleted from the chart) 03/11 09:25 09:18 03/11/2019 09:18 Discharged to Home. Impression: Cough; Nasal congestion. tw2 Condition is Stable. Forms are Medication Reconciliation Form, Thank You Letter, Antibiotic Education, Prescription Opioid Use. Follow up: Private Physician; When: 2 - 3 days; Reason: Recheck today's complaints, Re-evaluation by your physician. Follow up: Emergency Department; When: As needed; Reason: Fever > 102 F, Worsening of condition. Problem is new. Symptoms are unchanged. la1
[2019-03-11 10:22] VITALS: TEMP 98; O2SAT 100
[2019-03-11 10:24] VITALS: BP 128/84
== END 2019-03-11 09:25 | disposition home or self-care (01) ==
LOC: ER 06:39
DX: O26.893 Other specified pregnancy related conditions, third trimester (principal); Z3A.35 35 weeks gestation of pregnancy
CPT/HCPCS: 81003; 81015; 99283

== ENCOUNTER 2019-09-05 16:13 | Emergency (ER) | payer OTHER ==
[2019-09-05] MEDS ORDERED: FAMOTIDINE 20 MG/2 ML VIAL IV ONE (17:39)
[2019-09-05] MEDS ORDERED: ONDANSETRON 4 MG/2 ML VIAL ONE (17:39)
[2019-09-05] MEDS ORDERED: NA CHLORIDE 0.9% 1,000 ML ONE (17:39)
[2019-09-05 18:04] LABS: Absolute Lymphocytes (CBC) 2.6 K/uL (0.7-4.9); Basophils % 0.4 % (0-1.3); Hematocrit 38.1 % (36.0-45.0); Lymphocytes % 21.3 % (15.3-44.8); MPV 8.4 fL (7.6-11.3); RBC Red Blood Cell Count 4.39 M/uL (3.86-4.86)
[2019-09-05 18:32] LABS: BUN Blood Urea Nitrogen 8 mg/dL (7-18); Bicarbonate 24 mmol/L (21-32); Glucose Level 83 mg/dL (74-106); HCG, Quantitative 62223 mIU/mL (1-3); Potassium 3.7 mmol/L (3.5-5.1); Sodium Level 136 mmol/L (136-145)
[2019-09-05 18:36] LABS: Urine Blood 2+ (NEG); Urine Glucose NEGATIVE (NEG); Urine Protein 3+ (NEG); Urine Specific Gravity >1.030 (1.005-1.030)
[2019-09-05 18:36] LABS: Urine Bacteria <20 /HPF (<20); Urine Culture Reflex Order NOT NEEDED; Urine Mucus 1+ /HPF (NONE SEEN)
--- OUTSIDE RECORDS SUMMARY | 2019-09-05 18:55 | XMS REPORT | Summary of Care ---
:1990 Author Organization [facility] Address [address] [place] [id number] Care Team Providers Name Role Phone Dean Lee Insurance Hmo Vivi Lin [facility] Primary Care Provider Reason for Visit Reason Comments Appointment appt for Encounter Details Date Type Department Care Team Description 06/30/2019 [facility] Marjorie Pati [facility] (appt for [facility]) [address] [facility] [address] [facility] [address] [place] [address] [phone] Allergies No Known Allergiesdocumented as of this encounter (statuses as of 07/01/2019) Medications Medication Sig Dispensed Refills Start Date End Date Status metroNIDAZOLE (FLAGYL) Take 1 tablet by 14 tablet 0 03/01/2019 Active 500 mg mouth 2 (two) tabletIndications: BV times daily. (bacterial vaginosis) docusate calcium 240 mg Take 1 capsule 60 capsule 1 04/06/2019 Active capsuleIndications: S/P by mouth once daily as needed for Constipation. vitamin w/FA Take 1 tablet by 100 tablet 3 04/06/2019 Active tabletIndications: S/P mouth daily. ferrous sulfate 325 mg Take 1 tablet by 60 tablet 2 04/06/2019 Active (65 mg iron) mouth 2 (two) tabletIndications: S/P times daily. ibuprofen 600 mg Take 1 tablet by 60 tablet 1 04/06/2019 Active tabletIndications: S/P mouth every 6 (six) hours as needed (Pain). Take with food or milk. acetaminophen-codeine Take 1 tablet by 20 tablet 0 04/24/2019 Active (TYLENOL-CODEINE #3) mouth every 4 300-30 mg (four) hours as tabletIndications: needed for Pain Surgical site infection (scale 7-10). ondansetron 4 mg Take 1 tablet by 20 tablet 0 04/24/2019 Active disintegrating mouth every 8 tabletIndications: (eight) hours as Surgical site infection needed for Nausea and Vomiting (N/V). buPROPion XL Take 1 tablet by 30 tablet 0 05/18/2019 Active (WELLBUTRIN XL) 150 mg mouth daily. 24 hr tabletIndications: Other depression documented as of this encounter (statuses as of 07/01/2019) Active Problems Problem Noted Date Contraceptive management 05/18/2019 Tobacco use disorder 05/18/2019 Other depression 05/18/2019 Obesity (BMI 30-39.9) 01/31/2019 Rubella non-immune status, antepartum 08/10/2018 Overview: Address pp History of asthma 08/29/2016 documented as of this encounter (statuses as of 07/01/2019) Resolved Problems Problem Noted Date Resolved Date Routine follow-up 04/27/2019 05/18/2019 Morbid obesity with body mass index of 40.0-49.9 04/05/2019 04/27/2019 39 weeks gestation of 04/05/2019 04/27/19 20 Positive GBS test 03/18/2019 04/27/2019 Acute nasopharyngitis (common cold) 03/15/201904/07 Yeast vaginitis 03/01/2019 04/27/2019 BV (bacterial vaginosis) 03/01/2019 04/27/2019 History of substance abuse 02/14/2019 04/27/2019 Hypertension affecting 02/01/2019 019 30 weeks gestation of 02/01/2019 04/27/19 20 Gestational proteinuria 02/01/2019 04/27/2019 Elevated blood pressure reading without diagnosis of 04/27/2019 hypertension Abnormal maternal glucose tolerance, antepartum 01/14/2019 04/27/2019 Overview: Failed 1hr gtt, passed 3hr gtt Supervision of high-risk 08/05/201804/27 Multiparity 08/05/2018 04/27/2019 History of section 08/05/2018 04/27/2019 Overview: x2 Tobacco use in 08/05/2018 05/18/2019 Overview: Current Obesity affecting 08/05/2018 04/27/2019 Vaginal bleeding in 08/05/2018 04/27/2019 UTI symptoms 06/30/2018 04/27/2019 BMI 32.0-32.9,adult 02/16/2018 08/05/2018 Encounter for IUD insertion 11/14/2016 02/16/2018 Well woman exam 08/29/2016 02/16/2018 Other general counseling and advice for contraceptive 201602/16/2018 management Non morbid obesity due to excess calories 08/29/2016 02/16/2018 Tobacco use disorder 08/29/2016 02/16/2018 01/09/2015 08/29/2016 GBBS (group B beta hemolytic Streptococcus) pharyngitis 12/0508/29/2016 Overview: Will need antibiotics if labors Antepartum anemia in third trimester 12/18/2014 Previous delivery affecting , antepartum 0 12/18/2014 08/29/2016 Tobacco use disorder complicating , childbirth, or 10/17/2014 08/29/2016 puerperium, antepartum Overview: ICD10 Diagnosis Term 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 Utility Altered mental status 08/24/2014 08/29/2016 Drug abuse, opioid type 07/06/2014 08/29/2016 Overview: 12/18 + cocaine drug screen Multiparous 07/06/2014 08/29/2016 Supervision of other high-risk 06/03/2014 08/29/2016 Overview: ICD10 Diagnosis Term 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 Utility documented as of this encounter (statuses as of 07/01/2019) Immunizations Name Administration Dates Next Due HPV9 04/06/2019 Influenza Virus Vaccine Quad .5 mL IM 6+ 01/31/2019 [place] Tdap 01/31/2019, 12/18/2014, 06/02/2013 documented as of this encounter Social History Tobacco Use Types Packs/Day Years Used Date Former Smoker Cigarettes 0.5 4 08/06/2015 - 0 04/06/2019 Smokeless Tobacco: Never Used Alcohol Use Drinks/Week oz/Week Comments No 0 Standard drinks or equivalent 0.0 approx 2 drinks per week Sex Assigned at Date Recorded Not on file Job Start Date Occupation Industry Not on file Not on file Not on file Travel History Travel Start Travel End No recent travel history available. documented as of this encounter Last Filed Vital Signs Not on filedocumented in this encounter Plan of Treatment Health Maintenance Due Date Last Done Comments PAP SMEAR 05/18/2022 05/18/2019, 02/16/2018, 07/04/2014, Additional history exists DTaP,Tdap,and Td Vaccines (4 - 01/31/2029 01/31/2019, 12/18, Td) 06/02/2013 INFLUENZA VACCINE Completed 01/31/2019 PNEUMOCOCCAL 0-64 YEARS COMBINED Discontinued SERIES documented as of this encounter Results Not on filedocumented in this encounter Insurance Payer Benefit Plan Subscriber ID Effective Phone Address Typ e / Group Dates MEDICARE MEDICARE PART xxxxxxxxxxx 2019-Prese [phone] [address] [facility] Medicare A & B nt [id number] [place] [phone] [facility] xxxxxxxxx 2018-Pres Medic aid HEALTHCARE COMM STAR PLUS ent PLAN - MANAGED MEDICAID documented as of this encounter Advance Directives Name Relationship Healthcare Agent Relationship Co mmunication Rima Coley Mother Primary healthcare agent
--- OUTSIDE RECORDS SUMMARY | 2019-09-05 18:55 | XMS REPORT | Continuity of Care Document ---
:1990 Author Organization [facility] t Address [address] [place] [address] Care Team Providers Name Role Phone ShlomosiVivi Tapia Attending Clinician Doctor Unassigned, Name Attending Clinician Unavailable Problems This patient has no known problems. Allergies, Adverse Reactions, Alerts This patient has no known allergies or adverse reactions. Medications This patient has no known medications. Procedures This patient has no known procedures. Encounters Start End Encounter Admission Attending Care Care Encounter Source Date/Time Date/Time Type Type Clinicians Facility Department ID 2019-07-14 2019-07-14 Telemedici Riley [facility] [id number] 12:44:48 14:01:49 ne Visit Marjorie Trinidad SANDWICH MAKER [id number] REGIONAL [id number] MATERNAL [id number] & CHILD 107 [facility] 2019-07-14 2019-07-14 Patient Doctor [facility] [id number] 00:00:00 00:00:00 Secure Msg Unassigned, SANDWICH MAKER [id number] [place] [facility] [id number] MATERNAL [id number] & CHILD 107 [facility] 2019-07-04 2019-07-04 Telephone Riley [facility] [id number] 00:00:00 00:00:00 Marjorie C SANDWICH MAKER [id number] REGIONAL [id number] MATERNAL [id number] & CHILD 107 [facility] 2019-06-30 2019-06-30 Telephone Riley [facility] [id number] 00:00:00 00:00:00 Marjorie Trinidad SANDWICH MAKER [id number] REGIONAL [id number] MATERNAL [id number] & CHILD 107 [facility] 2019-06-06 2019-06-06 Office Riley [facility] [id number] 13:33:36 14:16:59 Visit Marjorie Trinidad SANDWICH MAKER [id number] [facility] [id number] MATERNAL [id number] & CHILD 107 [facility] Results This patient has no known results.
--- OUTSIDE RECORDS SUMMARY | 2019-09-05 18:56 | XMS REPORT | Summary of Care ---
:1990 Author Organization [facility] Address [address] [place] [address] Care Team Providers Name Role Phone Dean Lee Insurance [facility] Primary Care Provider Encounter Details Date Type Department Care Team Description 07/14/2019 [facility] Shahla Bourgeois Donald [address] [place] [address] [address] [place] [address] Allergies No Known Allergiesdocumented as of this encounter (statuses as of 08/20/2019) Medications Medication Sig Dispensed Refills Start Date [...] as of this encounter (statuses as of 08/20/2019) Active Problems Problem Noted Date Contraceptive management 05/18/2019 Tobacco use disorder 05/18/2019 Other depression 05/18/2019 Obesity (BMI 30-39.9) 01/31/2019 Rubella non-immune status, antepartum 08/10/2018 Overview: Address pp History of asthma 08/29/2016 documented as of this encounter (statuses as of 08/20/2019) Resolved Problems Problem Noted Date Resolved Date [...] Elevated blood pressure reading without diagnosis of 019 04/27/2019 hypertension Abnormal maternal glucose tolerance, antepartum [...] 08/29/2016 puerperium, antepartum Overview: ICD10 Diagnosis Term 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 Medicare A & B nt [id number] [place] [phone] [facility] xxxxxxxxx 2018-Pres Medic aid HEALTHCARE COMM STAR PLUS ent PLAN - MANAGED MEDICAID [facility] MEDICAID OF xxxxxxxxx 2019-Prese [phone] [address] Med icaid [place] nt [id number] [place] [address] documented as of this encounter Advance Directives Name Relationship Healthcare Agent Relationship Co mmunication Rima Coley Mother Primary healthcare agent
--- OUTSIDE RECORDS SUMMARY | 2019-09-05 18:56 | XMS REPORT | Summary of Care ---
:1990 Author Organization [facility] Address [address] [place] [address] Care Team Providers Name Role Phone Dean Lee Insurance Hmo Akinhipolito C WHCNP Primary Care Provider Reason for Visit Reason Comments Vaginal Discharge tele Encounter Details Date Type Department Care Team Description 07/14/2019 Telemedicine Visit [facility] RMP- [place], Vag inal discharge (Primary Dx); [place] Marjorie Trinidad, CNP Nonspecific urethritis [address] [facility] [address] [facility] [id number] [facility] [phone] [place] [address] Allergies No Known Allergiesdocumented as of this encounter (statuses as of 07/14/2019) Medications Medication Sig Dispensed Refills Start Date End Date Status metroNIDAZOLE (FLAGYL) Take 1 tablet 14 tablet 0 03/01/2019 Active 500 mg by mouth 2 tabletIndications: BV (two) times (bacterial vaginosis) daily. docusate calcium 240 Take 1 capsule 60 capsule 1 04/06/2019 Active mg capsuleIndications: by mouth once S/P daily as needed for Constipation. vitamin w/FA Take 1 tablet 100 tablet 3 04/06/2019 Active tabletIndications: S/P by mouth daily. ferrous sulfate 325 mg Take 1 tablet 60 tablet 2 04/06/2019 Active (65 mg iron) by mouth 2 tabletIndications: S/P (two) times daily. ibuprofen 600 mg Take 1 tablet 60 tablet 1 04/06/2019 Active tabletIndications: S/P by mouth every 6 (six) hours as needed (Pain). Take with food or milk. acetaminophen-codeine Take 1 tablet 20 tablet 0 04/24/2019 Active (TYLENOL-CODEINE #3) by mouth every 300-30 mg 4 (four) hours tabletIndications: as needed for Surgical site Pain (scale infection 7-10). ondansetron 4 mg Take 1 tablet 20 tablet 0 04/24/2019 Active disintegrating by mouth every tabletIndications: 8 (eight) hours Surgical site as needed for infection Nausea and Vomiting (N/V). buPROPion XL Take 1 tablet 30 tablet 0 05/18/2019 Ac tive (WELLBUTRIN XL) 150 mg by mouth daily. 24 hr tabletIndications: Other depression fluconazole (DIFLUCAN) Take 1 tablet 1 tablet 0 07/14/2019 Active 150 mg by mouth once tabletIndications: now for 1 dose. 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 Altered mental status 08/24/2014 08/29/2016 Drug abuse, opioid type 07/06/2014 08/29/2016 Overview: 12/18 + cocaine drug screen Multiparous 07/06/2014 08/29/2016 Supervision of other high-risk 06/03/2014 08/29/2016 Overview: ICD10 Diagnosis 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 Communication with patient was conducted via Telephone due to patient unable to obtain video call option. Location of Patient: Home Location of Provider: home Date of Service: 07/14/2019 Chief Complaint: the patient reports vaginal discharge for the past 1 week. She reports the discharge as white/yellow in color, with vaginal itching. She states the discharge is thick in consistency she also reports some scant vaginal bleeding. She denies having any new sexual partners on today. She reports she used AZO for about 6 days but with no real relief. She reports she is drinking a lot of water as well. HPI: Margie Coley is a 29 year old female with Past Medical History: Diagnosis Date Abnormal maternal glucose tolerance, antepartum 01/14/2019 Anemia with Asthma as a child Blood transfusion, without reported diagnosis pt is unsure when she had a blood transfusion Cocaine abuse 01/2016 Drug abuse, opioid type 07/06/2014 Dyslexia pt states she cannot read or write Gestational proteinuria 02/01/2019 Hypertension affecting 02/01/2019 Other depression 05/18/2019 Yeast vaginitis 03/01/2019 MEDICATIONS: Current Outpatient Medications Medication Sig Dispense Refill fluconazole (DIFLUCAN) 150 mg tablet Take 1 tablet by mouth once now for 1 dose. 1 tablet 0 buPROPion XL (WELLBUTRIN XL) 150 mg 24 hr tablet Take 1 tablet by mouth daily. 30 tablet 0 acetaminophen-codeine (TYLENOL-CODEINE #3) 300-30 mg tablet Take 1 tablet by mouth every 4 (four) hours as needed for Pain (scale 7-10). 20 tablet 0 ondansetron 4 mg disintegrating tablet Take 1 tablet by mouth every 8 (eight) hours as needed for Nausea and Vomiting (N/V). 20 tablet 0 docusate calcium 240 mg capsule Take 1 capsule by mouth once daily as needed for Constipation. 60 capsule 1 ferrous sulfate 325 mg (65 mg iron) tablet Take 1 tablet by mouth 2 (two) times daily. 60 tablet2 ibuprofen 600 mg tablet Take 1 tablet by mouth every 6 (six) hours as needed (Pain). Take with food or milk. 60 tablet 1 vitamin w/FA tablet Take 1 tablet by mouth daily. 100 tablet 3 metroNIDAZOLE (FLAGYL) 500 mg tablet Take 1 tablet by mouth 2 (two) times daily. 14 tablet 0 No current facility-administered medications for this visit. ROS Constitutional: negative Eyes: negative Ears: negative Nose/Sinuses: negative Mouth/Throat: negative Cardiovascular: negative Respiratory: negative Gastrointestinal: negative Genitourinary: Reports vaginal discharge, irritation Musculoskeletal: negative Integumentary: negative Neuro: negative Psych: negative Endocrine: negative Hem/Lymph: negative Allergy/Immunology: negative TELEHEALTH EXAM Constitutional: alert and in no distress Respiratory: breathing comfortably Neuro: answers questions appropriately Psych: normal affect ASSESSMENT/ PLAN Margie Coley is a 29 year old female with PMH as above presenting with: 1. Vaginal discharge Comment: reports Plan: as ordered - GC & CHLAMYDIA AMPLIFIED ASSAY; Future - fluconazole (DIFLUCAN) 150 mg tablet; Take 1 tablet by mouth once now for 1 dose. Dispense: 1 tablet; Refill: 0 After visit summary (AVS ) documentation will be available through [facility] for this encounter. A total of 18 minutes was spent on the Telephone due to patient unable to obtain video call option. LIZ Ashton documented in this encounter Plan of Treatment Date Type Specialty Care Team Description 07/22/2019 Dynamite Reclaimer [facility] Name Type Priority Associated Diagnoses Order S chedule GC & CHLAMYDIA AMPLIFIED LAB Routine Nonspec ific urethritis Expected: 07/21/2019, ASSAY Vaginal discharge Expires: 0 07/13/2020 Health Maintenance Due Date Last Done Comments PAP SMEAR 05/18/2022 05/18/2019, 02/16/2018, 07/04/2014, Additional history exists DTaP,Tdap,and Td Vaccines (4 - 01/31/2029 01/31/2019, 12/18, Td) 06/02/2013 INFLUENZA VACCINE Completed 01/31/2019 PNEUMOCOCCAL 0-64 YEARS COMBINED Discontinued SERIES documented as of this encounter Results Not on filedocumented in this encounter Visit Diagnoses Diagnosis Vaginal discharge - Primary Leukorrhea, not specified as infective Nonspecific urethritis Unspecified nongonococcal urethritis (NG U) documented in this encounter Insurance Payer Benefit Plan Subscriber ID Effective Phone Address Typ e / Group Dates MEDICARE MEDICARE PART xxxxxxxxxxx 2019-Prese [phone] A & B nt [id number] [place] [phone] [facility] xxxxxxxxx 2018-Pres Medic aid HEALTHCARE COMM STAR PLUS ent PLAN - MANAGED MEDICAID documented as of this encounter Advance Directives Name Relationship Healthcare Agent Relationship Co mmunication Rima Coley Mother Primary healthcare agent
--- OUTSIDE RECORDS SUMMARY | 2019-09-05 18:56 | XMS REPORT | Summary of Care ---
:1990 Author Organization [facility] Address [address] [place] [address] Care Team Providers Name Role Phone RosaDean sandhu Insurance Hmo Vivi Lin [facility] Primary Care Provider Reason for Visit Reason Comments Referral/consult Encounter Details Date Type Department Care Team Description 07/04/2019 Telephone [facility]- Marjorie Lin, Referral/consult [facility] [address] [facility] [address] [place] [address] [facility] [phone] [place], [place] [address] [phone] Allergies No Known Allergiesdocumented as of this encounter (statuses as of 07/04/2019) Medications Medication Sig Dispensed Refills Start Date [...] as of this encounter (statuses as of 07/04/2019) Active Problems Problem Noted Date Contraceptive management 05/18/2019 Tobacco use disorder 05/18/2019 Other depression 05/18/2019 Obesity (BMI 30-39.9) 01/31/2019 Rubella non-immune status, antepartum 08/10/2018 Overview: Address pp History of asthma 08/29/2016 documented as of this encounter (statuses as of 07/04/2019) Resolved Problems Problem Noted Date Resolved Date [...] 08/29/2016 puerperium, antepartum Overview: ICD10 Diagnosis 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 [facility] Medicare A & B nt [id number] [place] [id number] [facility] xxxxxxxxx 2018-Pres Medic aid HEALTHCARE COMM STAR PLUS ent PLAN - MANAGED MEDICAID documented as of this encounter Advance Directives Name Relationship Healthcare Agent Relationship Co mmunication Rima Coley Mother Primary healthcare agent
--- NOTE | 2019-09-05 19:28 | RAD REPORT ---
EXAM DESCRIPTION: US - Transvaginal OB - 09/05/2019 7:20 pm CLINICAL HISTORY: vaginal bleeding 3 days ago , pain COMPARISON: BIOPHYSICAL PROFILE dated 10/31/2014 FINDINGS: A single gestational sac is seen within the uterus. The shape of the sac is within normal limits for gestational age. Within the sac is a single pole with crown-rump length of 23 mm, co rrelating to estimated gestational age of 8 weeks 5 days. Estimated date of delivery is 04/11/2020. Heart rate is 173 BPM. The placenta is not yet developed due to early gestational age. The maternal adnexa are within normal limits. Both ovaries were obscured by bowel gas. IMPRESSION: Single live early intrauterine gestation with estimated gestational age of 8 weeks 5 day s, CLAIRE 04/11/2020. Both ovaries were obscured by bowel gas.
--- NOTE | 2019-09-05 20:24 | EDPHYS ---
Physician Documentation [facility] Name: Margie Coley Age: 29 yrs Sex: Female : 1990 Arrival Date: 09/05/2019 Time: 16:28 Bed 5 Private MD: JACINTO Physician Vince Nunez HPI: 09/04 17:10 This 29 yrs old Female presents to ER via Ambulatory with complaints of 8 wks cp , Vomiting, Vaginal Bleeding. 17:10 The patient presents to the emergency department with abdominal pain, of the right cp lower quadrant and left lower quadrant, intermittent, nausea and vomiting, that started 1 month ago, vaginal bleeding, 3 days ago, denies any current bleeding. 17:10 The estimated gestational age is 8 weeks. course: care: at a clinic, cp Leakage of Fluid: none appreciated, Ultrasound: the patient has not had an ultrasound. Previous pregnancies: in previous pregnancies patient has had vaginal delivery, , no complications. Associated signs and symptoms: Pertinent negatives: chest pain, dysuria, fever, ruptured membranes, shortness of breath, active vomiting. The patient has not recently seen a physician. 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 - Social history:: Smoking status: Patient/guardian denies using tobacco, Patient/guardian denies using alcohol, street drugs, tobacco products. ROS: 17:20 Constitutional: Negative for body aches, chills, fever, poor PO intake. cp 17:20 Eyes: Negative for injury, pain, redness, and discharge. cp 17:20 ENT: Negative for ear pain, sore throat, difficulty swallowing, difficulty handling secretions. 17:20 Cardiovascular: Negative for chest pain, palpitations. 17:20 Respiratory: Negative for cough, shortness of breath, wheezing. 17:20 Abdomen/GI: Positive for abdominal pain, nausea and vomiting, Negative for diarrhea, constipation, anorexia. 17:20 : Negative for urinary symptoms, flank pain, vaginal bleeding, vaginal discharge. 17:20 Neuro: Negative for dizziness, headache, syncope, weakness. 17:20 All other systems are negative. Exam: 17:25 Head/Face: Normocephalic, atraumatic. cp 17:25 Constitutional: The patient appears in no acute distress, alert, awake, non-toxic, well developed, well nourished. 17:25 Eyes: Periorbital structures: appear normal, Conjunctiva: normal, no exudate, no cp injection, Lids and lashes: appear normal, bilaterally. 17:25 ENT: External ear(s): are unremarkable, Nose: is normal, Mouth: Lips: moist, Oral mucosa: moist, Posterior pharynx: Airway: no evidence of obstruction, patent. 17:25 Chest/axilla: Inspection: normal. 17:25 Cardiovascular: Rate: normal, Rhythm: regular, Edema: is not appreciated. 17:25 Respiratory: the patient does not display signs of respiratory distress, Respirations: normal, no use of accessory muscles, no retractions, labored breathing, is not present, Breath sounds: are clear throughout, no decreased breath sounds, no stridor, no wheezing. 17:25 Abdomen/GI: Inspection: abdomen appears normal, Bowel sounds: active, all quadrants, Palpation: soft, in all quadrants, mild abdominal tenderness, in the right lower quadrant and left lower quadrant, rebound tenderness, is not appreciated, voluntary guarding, is not appreciated, involuntary guarding, is not appreciated. 17:25 Back: pain, is absent, ROM is normal. 17:25 Neuro: Orientation: is normal, Mentation: is normal, Motor: moves all fours, strength is normal. Vital Signs: 16:40 BP 136 / 88; Pulse 83; Resp 17; Temp 97.1; Pulse Ox 99% ; Pain 8/10; ll1 17:58 BP 115 / 80; Pulse 70; Resp 16; Pulse Ox 100% ; Pain 0/10; jl7 19:30 BP 121 / 66; Pulse 66; Resp 16; Pulse Ox 100% on R/A; jb4 MDM: 16:57 Patient medically screened. viv 19:41 Data reviewed: vital signs, nurses notes, lab test result(s), radiologic studies, cp ultrasound. 19:42 Counseling: I had a detailed discussion with the patient and/or guardian regarding: the cp historical points, exam findings, and any diagnostic results supporting the discharge/admit diagnosis, lab results, radiology results, the need for outpatient follow up, an OB/Gyne specialist, to return to the emergency department if symptoms worsen or persist or if there are any questions or concerns that arise at home. 19:42 Response to treatment: the patient's symptoms have markedly improved after treatment, cp VSS. Nausea improved and no active vomiting observed while in ED. Results of US discussed and patient measured at 8 weeks and 5 days with IUP . Will discharge to home for continued monitoring. 09/04 17:03 Order name: Quantitative Hcg; Complete Time: 18:56 cp 09/04 18:57 Interpretation: Reviewed. cp 09/04 17:03 Order name: Abo/rh Typing; Complete Time: 19:41 cp 09/04 17:03 Order name: Basic Metabolic Panel; Complete Time: 18:56 cp 09/04 17:03 Order name: CBC with Diff; Complete Time: 18:56 cp 09/04 17:51 Order name: Urine Microscopic Only; Complete Time: 18:56 em 09/04 18:22 Order name: Urine Dipstick--Ancillary (enter results); Complete Time: 18:56 bd 09/04 17:03 Order name: Urine Test (obtain specimen); Complete Time: 17:57 cp 09/04 17:03 Order name: IV Saline Lock; Complete Time: 17:57 cp 09/04 17:03 Order name: Labs collected and sent; Complete Time: 17:57 cp 09/04 17:58 Order name: US Transvaginal Ob cp 09/04 18:22 Order name: Urine --Ancillary (enter results); Complete Time: 18:56 bd 09/04 17:03 Order name: NPO; Complete Time: 17:57 cp 09/04 17:03 Order name: Urine Dipstick-Ancillary (obtain specimen); Complete Time: 17:57 cp 09/04 19:41 Order name: PO challenge; Complete Time: 19:52 cp Administered Medications: 17:40 Drug: NS 0.9% 1000 ml Route: IV; Rate: 1 bolus; Site: right antecubital; jl7 17:40 Drug: Zofran (Ondansetron) 4 mg Route: IVP; Site: right antecubital; jl7 17:42 Drug: Pepcid 20 mg Route: IVP; Site: right antecubital; jl7 Disposition: 09/05/19 19:43 Discharged to Home. Impression: related conditions, unspecified, first trimester, Nausea and vomiting. - Condition is Stable. - Discharge Instructions: Nausea and Vomiting, Adult, First Trimester of , Pelvic Rest. - Prescriptions for Diclegis 10- 10 mg Oral tablet,delayed release (DR/EC) - take 1 tablet by ORAL route 3-4 times daily As needed 1 tablet before meals and 2 tablets at bedtime; 30 tablet. Vitamin 27- 0.8 mg Oral Tablet - take 1 tablet by ORAL route once daily; 60 tablet. - Medication Reconciliation Form, Thank You Letter, Antibiotic Education, Prescription Opioid Use form. - Follow up: Fercho Rosa MD; When: 1 week; Reason: Recheck today's complaints. - Problem is new. - Symptoms have improved. Addendum: 09/07/2019 14:45 Co-signature as Attending Physician, Vince Nunez MD I agree with the assessment and c mims plan of care. Signatures: Dispatcher [employer] EDGA Vince Nunez MD MD cha Page, Corey PA PA cp Levon Kovacs RN RN jb4 Joselo Mcgregor RN RN jl7 Javy Estrada, RN RN ll1 Corrections: (The following items were deleted from the chart) 09/04 19:59 19:43 09/05/2019 19:43 Discharged to Home. Impression: related conditions, jb4 unspecified, first trimester; Nausea and vomiting. Condition is Stable. Forms are Medication Reconciliation Form, Thank You Letter, Antibiotic Education, Prescription Opioid Use. Follow up: Fercho Rosa; When: 1 week; Reason: Recheck today's complaints. Problem is new. Symptoms have improved. cp
--- NOTE | 2019-09-05 20:24 | ER ---
Nurse's Notes [facility] Name: Margie Coley Age: 29 yrs Sex: Female : 1990 Arrival Date: 09/05/2019 Time: 16:28 Bed 5 Private MD: Diagnosis: related conditions, unspecified, first trimester;Nausea and vomiting Presentation: 09/04 16:40 Chief complaint: Patient states: Approximately 8 weeks . States she has had N/V ll1 for 1 month. Had vaginal bleeding last week, that has resolved for the past 3 days. G6, P5. Coronavirus screen: Proceed with normal triage. Patient denies a cough. Patient denies shortness of breath or difficulty breathing. Patient denies measured and/or subjective temperature greater than 100.4F prior to today's visit. Patient denies travel on a cruise ship or to a country the [facility] [place] currently [place] as an affected area. Patient denies contact with known and/or suspected case of COVID-19. Ebola Screen: Patient denies travel to an Ebola-affected area in the 21 days before illness onset. Initial Sepsis Screen: Does the patient meet any 2 criteria? No. Patient's initial sepsis screen is negative. Risk Assessment: Do you want to hurt yourself or someone else? Patient reports no desire to harm self or others. Onset of symptoms was August 05, 2019. 16:40 Method Of Arrival: Ambulatory ll1 16:40 Acuity: SONIA 3 ll1 18:00 Initial Sepsis Screen: Does the patient have a suspected source of infection? No. jl7 Patient's initial sepsis screen is negative. [employer]: 17:10 6, Full Term 5, Living 5, Verified cp 17:59 LMP 08/03/2019 jl7 Historical: - Allergies: 16:43 No Known Drug Allergies; ll1 - PMHx: 16:43 Depression; Bipolar disorder; back problems; Anemia; Anxiety; ll1 - PSHx: 16:43 ; ll1 - Immunization history:: Adult Immunizations up to date. - Social history:: Smoking status: Patient/guardian denies using tobacco, Patient/guardian denies using alcohol, street drugs, tobacco products. Screenin:58 Abuse screen: Denies threats or abuse. Denies injuries from another. Nutritional jl7 screening: No deficits noted. Tuberculosis screening: No symptoms or risk factors identified. Fall Risk IV access (20 points). Total Rasmussen Fall Scale indicates No Risk (0-24 pts). Assessment: 17:35 General: Appears in no apparent distress. uncomfortable, Behavior is calm, cooperative, jl7 appropriate for age. Pain: Complains of pain in suprapubic area, right lower quadrant and left lower quadrant Pain does not radiate. Pain currently is 0 out of 10 on a pain scale. at worst was 8 out of 10 on a pain scale. Quality of pain is described as crampy, pressure, Pain began 1 day ago. Is intermittent. Neuro: Level of Consciousness is awake, alert, obeys commands, Oriented to person, place, time, situation. Cardiovascular: Patient's skin is warm and dry. Respiratory: Airway is patent Respiratory effort is even, unlabored, Respiratory pattern is regular, symmetrical. GI: Abdomen is non-distended, Reports nausea. : Reports vaginal bleeding that is brown, light flow. EENT: No signs and/or symptoms were reported regarding the EENT system. Derm: Skin is pink, warm \T\ dry. 19:10 Reassessment: Patient appears in no apparent distress at this time. Patient and/or jb4 family updated on plan of care and expected duration. Pain level reassessed. Patient is alert, oriented x 3, equal unlabored respirations, skin warm/dry/pink. Pt denies nausea at this time. Patient states feeling better. 19:59 Reassessment: Patient appears in no apparent distress at this time. Patient and/or jb4 family updated on plan of care and expected duration. Pain level reassessed. Patient is alert, oriented x 3, equal unlabored respirations, skin warm/dry/pink. Pt verbalized understanding of d/c and follow up instructions Denies questions or concerns. Patient states feeling better. Vital Signs: 16:40 BP 136 / 88; Pulse 83; Resp 17; Temp 97.1; Pulse Ox 99% ; Pain 8/10; ll1 17:58 BP 115 / 80; Pulse 70; Resp 16; Pulse Ox 100% ; Pain 0/10; jl7 19:30 BP 121 / 66; Pulse 66; Resp 16; Pulse Ox 100% on R/A; jb4 ED Course: 16:28 Patient arrived in ED. mr 16:42 Triage completed. ll1 16:43 Arm band placed on Patient notified of wait time. ll1 16:55 Vince Chapman PA is PHCP. cp 16:55 Vince Nunez MD is Attending Physician. cp 17:26 Joselo Mcgregor, RN is Primary Nurse. jl7 17:58 Patient has correct armband on for positive identification. Bed in low position. Call jl7 light in reach. Side rails up X 1. Pulse ox on. NIBP on. Warm blanket given. 17:58 Initial lab(s) drawn, by al, sent to lab. Urine collected: clean catch specimen, clear, jl7 T\T\S collected, blood band applied to patient. Inserted saline lock: 20 gauge in right antecubital area, using aseptic technique. Blood collected. 19:07 Primary Nurse role handed off by Joselo Mcgregor RN jl7 19:21 Transvaginal Ob In Process Unspecified. EDNV 19:33 Levon Kovacs, SAMSON is Primary Nurse. jb4 19:42 Fercho Rosa MD is Referral Physician. cp 19:59 No provider procedures requiring assistance completed. IV discontinued, intact, jb4 bleeding controlled, No redness/swelling at site. Pressure dressing applied. Administered Medications: 17:40 Drug: NS 0.9% 1000 ml Route: IV; Rate: 1 bolus; Site: right antecubital; jl7 17:40 Drug: Zofran (Ondansetron) 4 mg Route: IVP; Site: right antecubital; jl7 17:42 Drug: Pepcid 20 mg Route: IVP; Site: right antecubital; jl7 Outcome: 19:43 Discharge ordered by . cp 19:59 Discharged to home ambulatory. jb4 19:59 Condition: stable 19:59 Discharge instructions given to patient, Instructed on discharge instructions, follow up and referral plans. medication usage, Demonstrated understanding of instructions, follow-up care, medications, Prescriptions given X 2. 19:59 Patient left the ED. jb4 Signatures: Dispatcher [employer] EDNV Airam Whitehead Vince Chapman PA PA cp Levon Kovacs, SAMSON DAVIES jb4 Joseol Mcgregor RN RN jl7 Javy Estrada RN RN ll1
[2019-09-05 20:33] VITALS: TEMP 97.1
[2019-09-05 20:34] VITALS: O2SAT 100
[2019-09-05 20:35] VITALS: BP 121/66
== END 2019-09-05 19:59 | disposition home or self-care (01) ==
LOC: ER 16:13
DX: O21.9 Vomiting of pregnancy, unspecified (principal); Z3A.08 8 weeks gestation of pregnancy
CPT/HCPCS: 85025; 80048; 36415; 86900; 81025; 86901; 84702; 76817; 96375; 96374; 99284; J7030; J2405; 81003; 81015

== ENCOUNTER 2020-10-26 13:40 | Emergency (ER) | payer OTHER ==
--- OUTSIDE RECORDS SUMMARY | 2020-10-26 13:44 | XMS REPORT | Continuity of Care Document ---
:1990 Author Organization [facility] t Address [address] [place] [address] Care Team Providers Name Role Phone Vivi James Primary Care Physician Nurse, Rmchp Exp Cprit Obgyn Attending Clinician Unavailabl e Vivi James Attending Clinician Ruddy Bruno DO Attending Clinician Payers Payer Name Policy Type Policy Effective Date Expiration Source Number Date MEDICAREMEDICARE PART [id number] 2019 Un iversity of A & 00:00:00 [facility] [id number] 2019- [facility] [phone] [address]Medicare [facility] [id number] 2018 Univers ity of COMM PLAN - MANAGED 00:00:00 [place] [facility] [place]ICAIDUHC [place] STAR [id number] 8-PresentMedicaid Advance Directives Directive Decision Effective Termination Comments Source Date Date Healthcare Agents on N/A Univ ersity FileNameRelationshipHealthcare of [place] Agent Medical RelationshipCommunication[facility] [phone] (Mobile) Problems Condition Condition Condition Status Onset Resolution Last Treating Co mments Source Name Details Category Date Date Treatment Clinician Date Other Other Disease Active Univers general general 2-11 [place]y of counseling [place] advice and advice 00 Me dical for for Branch contracept contracept leisa leisa management management History of History of Disease Active 2019-04 U nivers 2019 novel 2019 novel 2-17 it y of coronaviru coronaviru [place] disease 00 [facility] (COVID-19) (COVID-19) Br anch Chronic Chronic Disease Active 2019-04 Univers hypertensi hypertensi 2-17 it y of on on 00:00: [place] 00 Medical Branch Suboxone Suboxone Disease Active 2019-04 Unive rs maintenanc maintenanc 1-05 it y of e e 00:00: [place] treatment treatment 00 [facility] complicati complicati Br anch ng ng , , antepartum antepartum , third , third trimester trimester Need for Need for Disease Active 2019-04 Unive rs prophylact prophylact 0-15 it y of ic ic 00:00: [place] vaccinatio vaccinatio 00 Me dical n and n and Branch inoculatio inoculatio n against n against influenza influenza History of History of Disease Active U nivers narcotic narcotic 8-25 ity of addiction addiction 00:[place] Other Other Disease Active Univers abnormal abnormal 8-25 ity of tumor tumor 00:00: [place] markers markers 00 Medical Branch History of History of Disease Active 2020 U nivers alcohol alcohol 6-10 ity of use use 00:00: [place] [facility] Tobacco Tobacco Disease Active Univers use use 2-12 ity of disorder disorder 00:00: [place] [facility] Other Other Disease Active 2020 Univers depression depression 2-12 it y of 00:00: [place] [id number] Medical Branch Obesity Obesity Disease Active 2018-04 Univers (BMI (BMI 2-31 ity of 30-39.9) 30-39.9) 00:00: [place] [facility] BMI BMI Disease Active 2018-04 Univers 33.0-33.9, 33.0-33.9, 0-28 it y of adult adult 00:00: [place] [facility] History of History of Disease Active 2017 U nivers asthma asthma 5-26 ity of 00:00: [place] 00 Medical Branch Liveborn Liveborn Disease Resolve 2019-042020-05-17 2020-05-17 Univers by by d 2-21 00:00:00 22:23:51 ity of 00:00: [place] delivery delivery 00 Medica l Branch S/P S/P Disease Resolve 2019-042020-05-17 2020-05-17 Univers d 2-21 00:00:00 22:24:12 it y of section section 00:00: [place] 00 Medical [facility] Sciatic Sciatic Disease Resolve 2019-042020-05-17 2020-05-17 Univers nerve nerve d 2-17 00:00:00 22:24:13 ity of pain, pain, 00:00: [place] right right 00 Medical Branch Carrier of Carrier of Disease Resolve 2019-042020-05-17 2020-05-17 Univers group B group B d 2-17 00:00:00 22:22:27 ity of Streptococ Streptococ 00:00[place] cus cus 00 Medical [facility] Need for Need for Disease Resolve 2019-042020-05-17 2020-05-17 Univers Tdap Tdap d 0-15 00:00:00 22:23:55 ity of vaccinatio vaccinatio 00:[place] n n 00 [place] Pyelectasi Pyelectasi Disease Resolve 2020-05-17 2020-05-17 Univers s of fetus s of fetus d 9-04 00:00:00 22:24:10 ity of on on 00:00: [place] 00 Medica l ultrasound ultrasound Br anch Other Other Disease Resolve 2020-05-17 2020-05-17 Univers abnormal abnormal d 8-25 00:00:00 22:24:04 it y of findings findings 00:00: [place] on on 00 Medical microbiolo microbiolo Br anch gical gical examinatio examinatio n of urine n of urine Urinary Urinary Disease Resolve 2020-05-17 2020-05-17 Univers tract tract d 8-25 00:00:00 22:22:06 [place]y of infection infection 00:00[place] without without 00 Medical hematuria, hematuria, Br anch site site unspecifie unspecifie d d Vaginitis, Vaginitis, Disease Resolve 2020-05-17 2020-05-17 Univers vulvitis vulvitis d 8- 00:00:00 22:22:13 it y of and and 00:00: [place] vulvovagin vulvovagin 00 Me dical itis in itis in Branch diseases diseases classified classified elsewhere elsewhere Abnormal Abnormal Disease Resolve 2020-05-17 2020-05-17 Univers radiologic radiologic d 8- 00:00:00 22:22:25 ity of findings findings 00:00: [place] on on 00 Medical diagnostic diagnostic Br anch imaging of imaging of other other urinary urinary organs organs Screening Screening Disease Resolve 2020-05-17 2020-05-17 Univers for viral for viral d 8- 00:00:00 22:24:23 ity of disease disease 00:00: [place] 00 Medical Branch Encounter Encounter Disease Resolve 2020-05-17 2020-05-17 Univers for for d 2-12 00:00:00 22:23:09 ity of screening [facility] for other 00 [facility] viral viral Branch diseases diseases 39 weeks 39 weeks Disease Resolve 2018-042020-05-17 2020-05-17 Univers gestation gestation d 2-31 00:00:00 22:22:20 ity of of of 00:00: [place] 00 [facility] Branch Rubella Rubella Disease Resolve 2020-05-17 2020-05-17 Univers non-immune non-immune d 5-07 00:00:00 22:24:11 ity of status, status, 00:00: [place] antepartum antepartum 00 Me dical Branch Supervisio Supervisio Disease Resolve 2020-05-17 2020-05-17 Univers n of high n of high d 5-02 00:00:00 22:24:40 ity of risk risk 00:00: [place] , , 00 Me dical antepartum antepartum Br anch Multiparit Multiparit Disease Resolve 2020-05-17 2020-05-17 Univers y y d 5-02 00:00:00 22:23:51 ity of 00:00: [place] 00 [facility] Branch Obesity Obesity Disease Resolve 2020-05-17 2020-05-17 Univers affecting affecting d 5- 00:00:00 22:24:01 [place] of 00:[place] in third in third 00 Medica l trimester trimester Bran ch Previous Previous Disease Resolve 0 2020-05-17 2020-05-17 Univers d 9-14 00:00:00 22:24:09 it y of delivery delivery 00:00: [place] affecting affecting 00 Medi luis , , Br anch antepartum antepartum Routine Routine Disease Resolve 2019-05-18 2019-05-18 Univers d - 00:00:00 19:37:57 ity of follow-up follow-up 00:00[place] [facility] Tobacco Tobacco Disease Resolve 2019-05-18 2019-05-18 Univers use in use in d 08-05 00:00:00 19:39:24 [place] of 00:[place] [facility] Positive Positive Disease Resolve 2018-042019-04-27 2019-04-27 Univers GBS test GBS test d 2- 00:00:00 15:52:45 it y of 00:00: [place] 00 Medical Branch Acute Acute Disease Resolve 2018-042019-04-27 2019-04-27 Univers nasopharyn nasopharyn d 2-10 00:00:00 15:52:55 ity of gitis gitis 00:00: [place] (common (common 00 Medical cold) cold) Branch Yeast Yeast Disease Resolve 2018-042019-04-27 2019-04-27 Univers vaginitis vaginitis d - 00:00:00 15:52:34 ity of 00:00: [place] 00 Medical Branch BV BV Disease Resolve 2018-042019-04-27 2019-04-27 Univers (bacterial (bacterial d 05-01 00:00:00 15:52:37 ity of vaginosis) vaginosis) [place] [facility] History of History of Disease Resolve 2018-042019-04-27 2019-04-27 Univers substance substance d - 00:00:00 15:52:50 ity of abuse abuse 00:00: [place] 00 Medical Branch 30 weeks 30 weeks Disease Resolve 2018-042019-04-27 2019-04-27 Univers gestation gestation d 0-29 00:00:00 15:52:59 ity of of of 00:00: [place] [facility] Gestationa Gestationa Disease Resolve 2018-042019-04-27 2019-04-27 Univers l l d 0-29 00:00:00 15:52:53 ity of proteinuri proteinuri 00:00: [place] a a [facility] Branch Elevated Elevated Disease Resolve 2018-042019-04-27 2019-04-27 Univers blood blood d 0- 00:00:00 15:52:54 ity of pressure pressure 00:00: [place] reading reading 00 Medical without without Branch diagnosis diagnosis of of hypertensi hypertensi on on Abnormal Abnormal Disease Resolve 2018-042019-04-27 2019-04-27 Univers maternal maternal d 0-11 00:00:00 15:52:56 it y of glucose glucose 00:00: [place] tolerance, tolerance, 00 Me dical antepartum antepartum Br anch History of History of Disease Resolve 2019-04-27 2019-04-27 Univers d 5-02 00:00:00 15:52:51 it y of section section 00:00: [place] 00 [facility] Branch Vaginal Vaginal Disease Resolve 2019-04-27 2019-04-27 Univers bleeding bleeding d 5-02 00:00:00 15:52:36 it y of in in 00:00: [place] [facility] UTI UTI Disease Resolve 2019-04-27 2019-04-27 Univers symptoms symptoms d 3-27 00:00:00 15:52:39 it y of 00:00: [place] 00 [facility] Branch Hypertensi Hypertensi Disease Resolve 2018-042019-02-01 2019-02-01 Univers on on d 0-29 00:00:00 17:14:59 [place] of affecting affecting 00:[place] [facility] BMI BMI Disease Resolve 2017-042018-08-05 2018-08-05 Univers 32.0-32.9, 32.0-32.9, d 1-13 00:00:00 16:48:21 ity of adult adult 00:00: [place] 00 [facility] Branch Encounter Encounter Disease Resolve 2018-02-16 2018-02-16 Univers for IUD for IUD d 8- 00:00:00 17:32:35 ity of insertion insertion 00:00[place] [facility] Other Other Disease Resolve 2018-02-16 2018-02-16 Univers general general d 08-29 00:00:00 17:32:29 ity of counseling counseling 00:00: [place] and advice and advice 00 Me dical for for Branch contracept contracept leisa leisa management management Non morbid Non morbid Disease Resolve 2018-02-16 2018-02-16 Univers obesity obesity d 08-29 00:00:00 17:32:32 ity of due to due to 00:00: [place] excess excess 00 Medical calories calories Branch Tobacco Tobacco Disease Resolve 2018-02-16 2018-02-16 Univers use use d 08-29 00:00:00 18:38:07 ity of disorder disorder 00:00: [place] 00 [facility] Disease Resolve 2014-042016-08-29 2016-08-29 Univers d 0-06 00:00:00 21:17:51 ity of 00:00: [place] 00 [facility] GBBS GBBS Disease Resolve 2016-08-29 2016-08-29 Univers (group B (group B d 9-16 00:00:00 21:17:52 it y of beta beta 00:00: [place] hemolytic hemolytic 00 [facility] Streptococ Streptococ Br anch cus) cus) pharyngiti pharyngiti s s Antepartum Antepartum Disease Resolve 2016-08-29 2016-08-29 Univers anemia in anemia in d 9-14 00:00:00 21:17:56 ity of third third 00:00: [place] trimester trimester [facility] Tobacco Tobacco Disease Resolve 2016-08-29 2016-08-29 Univers use use d 10-17 00:00:00 21:17:45 ity of disorder disorder 00:00: [place] complicati complicati 00 Me dical ng ng Branch , , childbirth childbirth , or , or puerperium puerperium , , antepartum antepartum Altered Altered Disease Resolve 2016-08-29 2016-08-29 Univers mental mental d 08-24 00:00:00 21:17:57 ity of status status 00:00: [place] 00 [facility] Branch Drug Drug Disease Resolve 2016-08-29 2016-08-29 Univers abuse, abuse, d 07-06 00:00:00 21:17:54 ity of opioid opioid 00:00: [place] type type 00 [facility] Multiparou Multiparou Disease Resolve 2016-08-29 2016-08-29 Univers s s d 07-06 00:00:00 21:17:51 ity of 00:00: [place] 00 [facility] Supervisio Supervisio Disease Resolve 2016-08-29 2016-08-29 Univers n of other n of other d 06-03 00:00:00 21:17:47 ity of high-risk high-risk 00:00: [facility] [facility] Allergies, Adverse Reactions, Alerts This patient has no known allergies or adverse reactions. Social History Social Habit Start Date Stop Date Quantity Comments Source Alcohol intake 2020-08-10 2020-08-10 Current University of 00:00:00 00:00:00 non-drinker of [facility] alcohol Branch (finding) Cigarettes smoked 2020-08-10 2020-08-10 Univers ity of current (pack per 00:00:00 00:00:00 ) - Reported Branch Cigarette 2020-08-10 2020-08-10 University of pack-years 00:00:00 00:00:00 [facility] Tobacco use and 2020-08-10 2020-08-10 Never used Universit y of exposure 00:00:00 00:00:00 [facility] History of tobacco 2015-08-06 2019-04-06 Cigarette Smoker University of use 00:00:00 00:00:00 [facility] Alcohol Comment 2017-10-09 2017-10-09 approx 2 drinks Univ ersity of 00:00:00 00:00:00 per week [facility] Sex [birth year] Universit y of 00:00:00 00:00:00 [facility] Smoking Status Start Date Stop Date Source Former smoker 2020-08-10 00:00:00 2020-08-10 00:00:00 Universi ty of [facility] Medications Ordered Filled Start Stop Current Ordering Indication Dosage Frequency Signature Comments Components Source Medication Medication Date Date Medication? Clinician (SIG) Name Name traZODone Yes Univers 50 mg 3-01 ity of tablet 00:00: [place] 00 Medical Branch buprenorphi Yes Place Unive rs ne 2-11 under the ity of HCl/naloxon 22:08: tongue. 2 [place] HCl 23 in AM, 1 Medical (SUBOXONE at Branch SL) acetaminoph 2019-04 Yes acute pain 1{tbl} Take 1 Univers en-codeine 2-27 tablet by ity of (TYLENOL-CO 00:00: mouth [place] DEINE #3) 00 every 4 Medical 300-30 mg (four) Branch tablet hours as needed for Pain (scale 1-3). Indication s: acute pain 2019-04 Yes S/P 1{tbl} Take 1 Unive rs vitamin 2-24 tablet by it y of w/FA tablet 00:00: mouth [place] 00 daily. Medical Branch docusate 2019-04 Yes S/P 240mg Take 1 Univer s calcium 240 2-24 capsule by ity of mg capsule 00:00: mouth once [place] 00 daily as Medical needed for Branch Constipati on. ferrous 2019-04 Yes S/P 325mg Take 1 Univers sulfate 325 2-24 tablet by ity of mg (65 mg 00:00: mouth 2 [place] iron) 00 (two) Medical tablet times Branch daily. ibuprofen 2019-04 Yes S/P 600mg Take 1 Unive rs 600 mg 2-24 tablet by ity of tablet 00:00: mouth [place] 00 every 6 Medical (six) Branch hours as needed (Pain). Take with food or milk. buPROPion Yes Other 150mg Take 1 Univ ers XL 2-12 depression tablet by ity of (WELLBUTRIN 00:00: mouth [place] XL) 150 mg 00 daily. Medical 24 hr Branch tablet Immunizations Ordered Filled Immunization Date Status Comments [facility] e Immunization Name Name HPV9 2020-08-10 Completed [facility] 00:00:00 [facility] HPV9 2020-03-27 Completed [facility] 00:00:00 [facility] TDAP 2020-01-19 Completed University 00:00:00 [facility] Influenza Virus 2020-01-19 Completed Universit y of Vaccine Quad .5 mL 00:00:00 [facility] IM 6+ MO Branch HPV9 2019-04-06 Completed University 00:00:00 [facility] TDAP 2019-01-31 Completed University of 00:00:00 [facility] Influenza Virus 2019-01-31 Completed Universit y of Vaccine Quad .5 mL 00:00:00 [facility] IM 6+ MO Branch TDAP 2014-12-18 Completed University of 00:00:00 [facility] TDAP 2013-06-02 Completed University 00:00:00 [facility] Vital Signs Vital Name Observation Time Observation Value Comments Source Systolic blood 2020-08-10 13:38:00 126 mm[Hg] Univer sity of pressure [facility] Diastolic blood 2020-08-10 13:38:00 87 mm[Hg] Unive rsity of pressure [facility] Heart rate 2020-08-10 13:38:00 86 /min Universi ty of [facility] Body temperature 2020-08-10 13:38:00 36.94 Blessing Univ ersity of [facility] Respiratory rate 2020-08-10 13:38:00 16 /min Univ ersity of [facility] Body height 2020-08-10 13:38:00 165.1 cm Universi ty of [facility] Body weight 2020-08-10 13:38:00 87.091 kg Universi ty of [facility] BMI 2020-08-10 13:38:00 31.95 kg/m2 Universi ty of [facility] Systolic blood 2020-08-10 13:38:00 126 mm[Hg] Univer sity of pressure [facility] Diastolic blood 2020-08-10 13:38:00 87 mm[Hg] Unive rsity of pressure [facility] Heart rate 2020-08-10 13:38:00 86 /min Universi ty of [facility] Body temperature 2020-08-10 13:38:00 36.94 Blessing Univ ersity of [facility] Respiratory rate 2020-08-10 13:38:00 16 /min Univ ersity of [facility] Body height 2020-08-10 13:38:00 165.1 cm Universi ty of [facility] Body weight 2020-08-10 13:38:00 87.091 kg Universi ty of [facility] BMI 2020-08-10 13:38:00 31.95 kg/m2 Universi ty of [facility] Branch Procedures Procedure Date / Time Performed Performing Clinician Sourc e GARDASIL 9 (HPV 9V) 2020-08-10 13:35:02 Marjorie Lin [facility] VACCINE Medical Branch Plan of Care Planned Activity Planned Date Details Comments Source Future Scheduled 2030-01-18 DTaP,Tdap,and Td Univers [facility] Test 00:00:00 Vaccines (5 - Td) Medical Br anch [code = DTaP,Tdap,and Td Vaccines (5 - Td)] Future Scheduled 2022-05-18 Screening for [facility] Test 00:00:00 malignant neoplasm Medical B [place] of cervix (procedure) [code = 092482456] Future Scheduled 2021-04-02 Depression screening [facility] Test 00:00:00 (procedure) [code = Medical Branch [id number]] Future Scheduled 2005 SARS-CoV-2 [facility] 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 [id number] Cprit Obgyn [facility] [id number] MATERNAL [id number] & CHILD 107 [facility] 2020-06-26 2020-06-26 Patient JEAN PAUL Bruno [id number] 00:00:00 00:00:00 Outreach [facility] [id number] [facility] [id number] PAVILLION [id number] 2020-05-29 2020-05-29 Telephone JEAN PAUL Lin [id number] 00:00:00 00:00:00 Marjorie Trinidad SOFTWARE REVERSE ENGINEER [id number] [facility] [id number] MATERNAL [id number] & CHILD 107 [facility] 2020-05-17 2020-05-17 Office JEAN PAUL Lin [id number] 15:34:05 16:23:43 Visit Marjorie Trinidad SOFTWARE REVERSE ENGINEER [id number] [facility] [id number] MATERNAL [id number] & CHILD [address] [place] [address] - [place] Results This patient has no known results.
[2020-10-26 14:48] LABS: Urine Blood Trace-intact (Negative); Urine Glucose Negative (Negative); Urine Protein Trace (Negative)
[2020-10-26 15:37] LABS: Absolute Lymphocytes (CBC) 1.6 K/uL (0.7-4.9); Basophils % 0.3 % (0-1.3); Hematocrit 37.1 % (36.0-45.0); Lymphocytes % 20.8 % (15.3-44.8); MPV 8.7 fL (7.6-11.3); RBC Red Blood Cell Count 4.23 M/uL (3.86-4.86)
[2020-10-26 16:02] LABS: BUN Blood Urea Nitrogen 5 mg/dL (7-18); Bicarbonate 25 mmol/L (21-32); Glucose Level 106 mg/dL (74-106); HCG, Quantitative 29819 mIU/mL (1-3); Potassium 3.9 mmol/L (3.5-5.1); Sodium Level 138 mmol/L (136-145)
--- NOTE | 2020-10-26 16:33 | RAD REPORT ---
EXAM DESCRIPTION: US - Transvaginal OB - 10/26/2020 4:19 pm CLINICAL HISTORY: Abd cramping, ;Vaginal bleeding COMPARISON: Transvaginal OB dated 09/05/2019 FINDINGS: Single viable IUP with positive heart tones. The crown-rump length measures 1 7.6 ce ntimeters which is consistent with 13 weeks 5 days. The ovaries were not visualized. IMPRESSION: Single viable IUP with positive heart tones measuring 13 weeks 5 days.
--- NOTE | 2020-10-26 16:45 | EDPHYS ---
Physician Documentation [facility] Name: Margie Coley Age: 30 yrs Sex: Female : 1990 Arrival Date: 10/26/2020 Time: 13:43 Bed Ultrasound Private MD: ED Physician Hayden Chiu HPI: 10/26 15:10 This 30 yrs old Female presents to ER via Ambulatory with complaints of kb Abdominal Pain. 15:10 The patient presents to the emergency department with abdominal pain, of the suprapubic kb area, that started 10 day(s) ago, described as pressure, vaginal bleeding, described as spotting. course: care: none, Leakage of Fluid: none appreciated, Ultrasound: the patient has not had an ultrasound, Risk/complications: no obvious risks or complications are appreciated. Previous pregnancies: in previous pregnancies patient has had. Associated signs and symptoms: Pertinent positives: abdominal pain, vaginal bleeding, Pertinent negatives: chest pain, diarrhea, dysuria, fever, frequency, nausea, ruptured membranes, seizure, shortness of breath, vaginal discharge, vomiting. The patient has not experienced similar symptoms in the past. The patient has not recently seen a physician. Reports spotting lower abdominal pressure and vaginal discharge for a week and a half. . 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 kg She stated she has a 6 month old at home and has positive tests at home. 15:10 7, 0, Living 6 kb Historical: - Allergies: 14:13 No Known Allergies; kg - Home Meds: 14:13 trazodone 50 mg Oral tab [Active]; suboxone [Active]; Vitamin Oral once daily kg [Active]; stool softner [Active]; - PMHx: 14:13 Anemia; back problems; Anxiety; Bipolar disorder; Depression; substance abuse; kg - Immunization history:: Adult Immunizations up to date, Client reports receiving the 2nd dose of the Covid vaccine. - Social history:: Smoking status: . ROS: 15:15 Constitutional: Negative for fever, chills, and weight loss. kb 15:15 Abdomen/GI: Positive for abdominal pain, Negative for nausea, vomiting, and diarrhea. 15:15 : Positive for vaginal bleeding, vaginal discharge. 15:15 All other systems are negative. Exam: 15:15 Constitutional: This is a well developed, well nourished patient who is awake, alert, kb and in no acute distress. Head/Face: Normocephalic, atraumatic. ENT: Moist Mucous membranes Cardiovascular: Regular rate and rhythm with a normal S1 and S2. No gallops, murmurs, or rubs. No pulse deficits. Respiratory: Respirations even and unlabored. No increased work of breathing, no retractions or nasal flaring. Skin: Warm, dry with normal turgor. Normal color. MS/ Extremity: Pulses equal, no cyanosis. Neurovascular intact. Full, normal range of motion. Neuro: Awake and alert, GCS 15, oriented to person, place, time, and situation. Moves all extremities. Normal gait. Psych: Awake, alert, with orientation to person, place and time. Behavior, mood, and affect are within normal limits. 15:15 Abdomen/GI: Inspection: abdomen appears normal, Bowel sounds: normal, in all quadrants, Palpation: soft, in all quadrants, mild abdominal tenderness, in the suprapubic area. Vital Signs: 14:10 BP 119 / 82; Pulse 82; Resp 20; Temp 98.0(TE); Pulse Ox 98% on R/A; Weight 84.19 kg kg (M); Height 5 ft. 6 in. (167.64 cm); Pain 8/10; 16:20 BP 119 / 74; Pulse 86; Resp 16; Pulse Ox 100% on NC; zb 17:14 BP 120 / 78; Pulse 84; Resp 16; Pulse Ox 100% ; zb 14:10 Body Mass Index 29.96 (84.19 kg, 167.64 cm) kg MDM: 15:02 Patient medically screened. kb 15:13 Data reviewed: vital signs, nurses notes. Data interpreted: Pulse oximetry: on room air kb is 98 %. Interpretation: normal. 16:38 Counseling: I had a detailed discussion with the patient and/or guardian regarding: the kb historical points, exam findings, and any diagnostic results supporting the discharge/admit diagnosis, lab results, radiology results, the need for outpatient follow up, an OB/Gyne specialist, to return to the emergency department if symptoms worsen or persist or if there are any questions or concerns that arise at home. 07/23 14:47 Order name: Urine Dipstick-Ancillary; Complete Time: 15:03 EDMS 10/26 15:03 Order name: Abo/rh Typing; Complete Time: 16:33 kb 10/26 15:03 Order name: Basic Metabolic Panel; Complete Time: 16:03 kb 10/26 15:03 Order name: CBC with Diff; Complete Time: 15:55 kb 10/26 15:03 Order name: Quantitative Hcg; Complete Time: 16:03 kb 10/26 15:07 Order name: Urine --Ancillary (enter results) eb 10/26 15:03 Order name: IV Saline Lock; Complete Time: 17:12 kb 10/26 15:03 Order name: Labs collected and sent; Complete Time: 17:12 kb 10/26 15:03 Order name: NPO; Complete Time: 17:12 kb 10/26 15:07 Order name: Urine --Ancillary; Complete Time: 15:55 EDMS 10/26 15:10 Order name: US Transvaginal Ob; Complete Time: 16:37 kb Administered Medications: No medications were administered Disposition Summary: 10/26/20 16:45 Discharge Ordered Location: Home kb Condition: Stable kb Diagnosis - Threatened kb - 13 weeks gestation of kb Followup: kb - With: Emergency Department - When: As needed - Reason: Worsening of condition Followup: kb - With: Private Physician - When: 2 - 3 days - Reason: Recheck today's complaints, Continuance of care, Re-evaluation by your physician Discharge Instructions: - Discharge Summary Sheet kb - Threatened Miscarriage, [id number] kb - Second Trimester of , [id number] kb Forms: - Medication Reconciliation Form kb - Thank You Letter kb - Antibiotic Education kb - Prescription Opioid Use kb Addendum: 10/28/2020 17:07 Co-signature as Attending Physician, Hadyen Chiu MD. m a2 Signatures: Dispatcher [employer] Kim Centeno, BERTIN-C BERTIN-Hayden Puri MD MD ma2 Norma Goodwin, RN RN kg
--- NOTE | 2020-10-26 16:45 | ER ---
Nurse's Notes [facility] Name: Margie Coley Age: 30 yrs Sex: Female : 1990 Arrival Date: 10/26/2020 Time: 13:43 Bed Ultrasound Private MD: Diagnosis: Threatened ;13 weeks gestation of Presentation: 10/26 14:10 Chief complaint: Patient states: Adominal pain x 1 month, constipation x 3 weeks, kg irregular discharge x 2 weeks, spotting x 1 week. " I'm but I'm not sure how far along I am. Maybe 3 weeks maybe 3 months. I have a 6 month old right now.". Coronavirus screen: Client denies travel out of the [place] in the last 14 days. At this time, unable to obtain information related to travel outside the [place] At this time, the client does not indicate any symptoms associated with coronavirus-19. Ebola Screen: Patient negative for fever greater than or equal to 101.5 degrees Fahrenheit, and additional compatible Ebola Virus Disease symptoms Patient denies exposure to infectious person. Patient denies travel to an Ebola-affected area in the 21 days before illness onset. Initial Sepsis Screen: Does the patient meet any 2 criteria? No. Patient's initial sepsis screen is negative. Does the patient have a suspected source of infection? No. Patient's initial sepsis screen is negative. Risk Assessment: Do you want to hurt yourself or someone else? Patient reports no desire to harm self or others. Onset of symptoms was September 25, 2020. 14:10 Method Of Arrival: Ambulatory kg 14:10 Acuity: SONIA 3 kg 14:19 Chief complaint:. kg Triage Assessment: 14:13 General: Appears in no apparent distress. Behavior is calm, cooperative, appropriate kg for age, quiet. Pain: Denies pain. Pain: Denies pain. Complains of pain in abdomen Pain currently is 8 out of 10 on a pain scale. at worst was 10 out of 10 on a pain scale. level that patient reports is acceptable is 5 out of 10 on a pain scale. Quality of pain is described as pressure. 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 kg She stated she has a 6 month old at home and has positive tests at home. 15:10 7, 0, Living 6 kb Historical: - Allergies: 14:13 No Known Allergies; kg - Home Meds: 14:13 trazodone 50 mg Oral tab [Active]; suboxone [Active]; Vitamin Oral once daily kg [Active]; stool softner [Active]; - PMHx: 14:13 Anemia; back problems; Anxiety; Bipolar disorder; Depression; substance abuse; kg - Immunization history:: Adult Immunizations up to date, Client reports receiving the 2nd dose of the Covid vaccine. - Social history:: Smoking status: . Screenin:18 Abuse screen: Denies threats or abuse. Denies injuries from another. Nutritional kg screening: No deficits noted. Tuberculosis screening: No symptoms or risk factors identified. Fall Risk None identified. No fall in past 12 months (0 pts). No secondary diagnosis (0 pts). No IV (0 pts). Ambulatory Aid- None/Bed Rest/Nurse Assist (0 pts). Gait- Normal/Bed Rest/Wheelchair (0 pts) Mental Status- Oriented to own ability (0 pts). Total Rasmussen Fall Scale indicates No Risk (0-24 pts). Assessment: 15:17 General: Appears in no apparent distress. Behavior is calm. Pain: Complains of pain in zb pelvis and suprapubic area. Neuro: Level of Consciousness is awake, alert, obeys commands. Cardiovascular: Patient's skin is warm and dry. Respiratory: Airway is patent. GI: Abdomen is round Bowel sounds present X 4 quads. Abdomen is tender to palpation in right upper quadrant Reports constipation. : Vaginal discharge is white, Reports discharge, from vagina that is green, malodorous, white, urinary frequency, vaginal itching, Denies burning with urination, Patient is sexually active. Derm: Skin is intact, is healthy with good turgor, Skin is dry. Musculoskeletal: Range of motion:. 16:20 Reassessment: Patient appears in no apparent distress at this time. Patient and/or zb family updated on plan of care and expected duration. Pain level reassessed. Patient is alert, oriented x 3, equal unlabored respirations, skin warm/dry/pink. 17:14 Reassessment: Patient appears in no apparent distress at this time. Patient and/or zb family updated on plan of care and expected duration. Pain level reassessed. Patient is alert, oriented x 3, equal unlabored respirations, skin warm/dry/pink. d/c instructions discussed. gait even and steady. Vital Signs: 14:10 BP 119 / 82; Pulse 82; Resp 20; Temp 98.0(TE); Pulse Ox 98% on R/A; Weight 84.19 kg kg (M); Height 5 ft. 6 in. (167.64 cm); Pain 8/10; 16:20 BP 119 / 74; Pulse 86; Resp 16; Pulse Ox 100% on NC; zb 17:14 BP 120 / 78; Pulse 84; Resp 16; Pulse Ox 100% ; zb 14:10 Body Mass Index 29.96 (84.19 kg, 167.64 cm) kg ED Course: 13:43 Patient arrived in ED. ds1 14:13 Triage completed. kg 14:18 Patient has correct armband on for positive identification. kg 15:02 Kim [facility]C [facility] kb 15:02 Hayden Chiu MD is Attending Physician. kb 15:05 Miroslava Beard, RN is Primary Nurse. zb 15:21 Inserted saline lock: 20 gauge in right antecubital area, using aseptic technique. zb Blood collected. 16:18 US Transvaginal Ob In Process Unspecified. EDMS 17:14 Arm band placed on. zb 17:14 No provider procedures requiring assistance completed. IV discontinued, intact, zb bleeding controlled, No redness/swelling at site. Pressure dressing applied. Administered Medications: No medications were administered Outcome: 16:45 Discharge ordered by MD. kb 17:14 Discharged to home ambulatory. zb 17:14 Condition: stable 17:14 Discharge instructions given to patient, Instructed on discharge instructions, follow up and referral plans. Demonstrated understanding of instructions, follow-up care. 17:15 Patient left the ED. zb Signatures: Dispatcher [employer] EDMS Kim Davis FNP-C FNP-Anamaria Perla ds1 Miroslava Beard, RN RN Norma Sanchez RN RN kg Corrections: (The following items were deleted from the chart) 14:20 14:10 Chief complaint: Patient states: Adominal pain x 1 month, constipation x 3 weeks, kg irregular discharge x 2 weeks, spotting x 1 week. kg
[2020-10-26 17:44] VITALS: TEMP 98
[2020-10-26 17:50] VITALS: O2SAT 100
[2020-10-26 17:56] VITALS: BP 120/78
== END 2020-10-26 17:15 | disposition home or self-care (01) ==
LOC: ER 13:40
DX: O20.0 Threatened abortion (principal); Z3A.13 13 weeks gestation of pregnancy
CPT/HCPCS: 36415; 76817; 80048; 81003; 81025; 84702; 85025; 86900; 86901; 99283

== ENCOUNTER 2021-05-03 03:11 | Emergency (ER) | payer OTHER ==
--- OUTSIDE RECORDS SUMMARY | 2021-05-03 03:17 | XMS REPORT | Continuity of Care Document ---
:1990 Author Organization [facility] t Address [facility] [place] [address] Care Team Providers Name Role Phone Riley HILL, C Primary Care Physician ANTONIO Attending Clinician Unavailable Dillon JESUS Attending Clinician Unavailable Dillon Jesus MD Attending Clinician Antonio SANTAMARIA Attending Clinician Maegan LUCAS Attending Clinician Unavailable Lance DENTON B Attending Clinician Zion DUENAS Attending Clinician Unavailable Zion DUENAS Attending Clinician Unavailable Armando Barnett MD Attending Clinician Zion Duenas MD Attending Clinician Michael PORTER Attending Clinician Devon SANTAMARIA Attending Clinician Riley HILL, C Attending Clinician Ron FLOYD Attending Clinician Unavailable Robles_Pappas Attending Clinician Unavailable Nurse, Rmchp Exp Cprit Obgyn Attending Clinician Unavailabl e RILEY C Attending Clinician Unavailable Ruddy Duenas DO Attending Clinician Zion DUENAS Admitting Clinician Unavailable Zion Duenas MD Admitting Clinician Marek Admitting Clinician Unavailable Payers Payer Name Policy Type Policy Number Effective Date Expiration Date S cynthia [employer] MCARE [id number] 2021 ADV CHOICE PPO 00:00:00 [facility] [place] STAR [id number] 2018 PLUS 00:00:00 [facility] MEDICARE [id number] 2021 COMPLETE CHOICE 00:00:00 MED[place] [id number] 2021 00:00:00 Advance Directives Directive Decision Effective Termination Comments Source Date Date Healthcare Agents on N/A Univ ersity FileNameRelationshipHealthcare [facility] Agent [facility] [phone] (Mobile) Problems Condition Condition Condition Status Onset Resolution Last Treating Co mments Source Name Details Category Date Date Treatment Clinician Date S/P S/P Disease Active Univers 1-11 ity of 00:00: [place] 00 Medical Branch 39 weeks 39 weeks Disease Active Unive rs gestation gestation 1-07 ity of of of 00:00: [place] 00 Medi luis Branch Positive Positive Disease Active 2020-04 Unive rs GBS test GBS test 2-27 ity of 00:00: [place] 00 Medical Branch Lab test Lab test Disease Active 2020-04 Unive rs positive positive 2-27 ity of for for 00:00: [place] detection detection 00 Medi luis of of Branch COVID-19 COVID-19 virus virus Pain of Pain of Disease Active 2020-04 Univers round round 2-23 ity of ligament ligament 00:00: [place] during during 00 Medical Bran ch Rubella Rubella Disease Active 2020-04 Overview: Univ ers non-immune non-immune 2-17 Formattin ity of status, status, 00:00: g of this [place] antepartum antepartum 00 note Me dical might be Branch different from the original. Address pp Supervisio Supervisio Disease Active 2020-04 U nivers n of n of 2-16 ity of high-risk high-risk 00:[place] with with Branch insufficie insufficie nt nt care care Multiparit Multiparit Disease Active 2020-04 U nivers y y 2-16 ity of 00:00: [place] 00 Medical Branch History of History of Disease Active 2020-04 Overview : Univers 2-16 Formattin ity of section section 00:00: g of this [place] 00 note Medical might be Branch different from the original. x3 Short Short Disease Active 2020-04 Univers interval interval 2-16 ity of between between 00:00: [place] pregnancie pregnancie 00 Me dical s s Branch affecting affecting , , antepartum antepartum Other Other Disease Active Univers general general 2-11 ity of counseling counseling 00:00[place] and advice and advice 00 Ak dical for for Branch contracept contracept leisa leisa management management Chronic Chronic Disease Active 2019-04 Univers hypertensi hypertensi 2-17 it y of on on 00:00: [place] 00 Medical Branch History of History of Disease Active 2019-04 U nivers 2019 novel 2019 novel 2-17 it y of coronaviru coronaviru 00:00[place] s disease s disease 00 [facility] (COVID-19) (COVID-19) Br anch Pre-existi Pre-existi Disease Active 2019-04 U nivers ng ng 2-17 ity of essential essential 00:00[place] hypertensi hypertensi 00 Ak dical on during on during Bran ch Suboxone Suboxone Disease Active 2019-04 Unive rs maintenanc maintenanc 1-05 it y of e e 00:00: [place] treatment treatment 00 [facility] complicati complicati Br anch ng ng , , antepartum antepartum , third , third trimester trimester Need for Need for Disease Active 2019-04 Unive rs prophylact prophylact 0-15 it y of ic ic 00:00: [place] vaccinatio vaccinatio 00 Ak dical n and n and Branch inoculatio inoculatio n against n against influenza influenza History of History of Disease Active 2020- U nivers narcotic narcotic 8-25 ity of addiction addiction 00:[place] Other Other Disease Active 2020-0 Univers abnormal abnormal 8-25 ity of tumor tumor 00:00: [place] markers markers 00 Medical Branch History of History of Disease Active 2020- U nivers alcohol alcohol 6-10 ity of use use 00:00: [place] 00 Medical Branch Tobacco Tobacco Disease Active 2020 Univers use use 2-12 ity of disorder disorder 00:00: [place] 00 Medical Branch Other Other Disease Active Univers depression depression 2-12 it y of 00:00: [place] 00 Medical Branch Tobacco Tobacco Disease Active Univers use in use in 2-12 it[place] of 00:[place] Obesity Obesity Disease Active 2018-04 Univers (BMI (BMI 2-31 ity of 30-39.9) 30-39.9) 00:00: [place] Medical [facility] Obesity in Obesity in Disease Active 2018-04 U nivers 2-31 ity of 00:00: [place] 00 Medical Branch BMI BMI Disease Active 2018-04 Univers 33.0-33.9, 33.0-33.9, 0-28 it y of adult adult 00:00: [place] 00 Medical Branch History of History of Disease Active U nivers asthma asthma 5-26 ity of 00:00: [place] Medical [facility] Liveborn Liveborn Disease Resolve 2019-042020-05-17 [...] 00 Medical Branch Pyelectasi Pyelectasi Disease Resolve 2020-05-172020-05-17 Univers s of fetus s of fetus d 9-04 00:00:00 22:24:10 ity of on on 00:00: [place] 00 Medica l ultrasound ultrasound Br anch Other Other Disease Resolve 2020-05-17 2020-05-17 Univers abnormal abnormal d 8- 00:00:00 22:24:04 it y of findings findings 00:00: [place] on on Medical microbiolo microbiolo Br anch gical gical examinatio examinatio n of urine n of urine Urinary Urinary Disease Resolve 2020-05-17 2020-05-17 Univers tract tract d 8- 00:00:00 22:22:06 ity of infection infection 00:00: [...] 2020-05-17 Univers for viral for viral d 8-25 00:00:00 22:24:23 ity of disease disease 00:00: [place] 00 Medical Branch Encounter Encounter Disease Resolve 2020-05-17 2020-05-17 Univers for for d 2-12 00:00:00 22:23:09 ity of screening screening 00:00[place] other for other 00 [facility] viral viral Branch diseases diseases 39 weeks 39 weeks Disease Resolve 2018-042020-05-17 2020-05-17 Univers gestation gestation d 2-31 00:00:00 22:22:20 ity of of of 00:00: [place] [address] [facility] Branch Rubella Rubella Disease Resolve 2020-05-17 2020-05-17 Univers non-immune non-immune d 5- 00:00:00 22:24:11 ity of status, status, 00:00: [place] antepartum antepartum 00 Me dical Branch Supervisio Supervisio Disease Resolve 2020-05-17 2020-05-17 Univers n of high n of high d 08-05 00:00:00 22:24:40 ity of risk risk 00:00: [place] , , 00 Me dical antepartum antepartum Br anch Multiparit Multiparit Disease Resolve 2020-05-17 2020-05-17 Univers y y d - 00:00:00 22:23:51 ity of 00:00: [place] [address] [facility] Branch Obesity Obesity Disease Resolve 2020-05-17 2020-05-17 Univers affecting affecting d 08-05 00:00:00 22:24:01 [place] of 00:[place] in third in third 00 Medica l trimester trimester Bran ch Previous Previous Disease Resolve 2020-05-17 2020-05-17 Univers d 9-14 00:00:00 22:24:09 it y of delivery delivery 00:00: [place] affecting affecting [address] [facility] , , Br anch antepartum antepartum Routine Routine Disease Resolve 2019-05-18 2019-05-18 Univers d - 00:00:00 19:37:57 ity of follow-up follow-up 00:00[place] Tobacco Tobacco Disease Resolve 2019-05-18 2019-05-18 Univers use in use in d - 00:00:00 19:39:24 ity of 00:[place] [facility] [place] Positive Positive Disease Resolve 2018-042019-04-27 2019-04-27 Univers GBS test GBS test d 2- 00:00:00 15:52:45 it y of 00:00: [place] 00 Medical Branch Acute Acute Disease Resolve 2018-042019-04-27 2019-04-27 Univers nasopharyn nasopharyn d 2- 00:00:00 15:52:55 ity of gitis gitis 00:00: [place] (common (common 00 Medical cold) cold) Branch Yeast Yeast Disease Resolve 2018-042019-04-27 2019-04-27 Univers vaginitis vaginitis d 05-01 00:00:00 15:52:34 ity of 00:00: [place] 00 Medical Branch BV BV Disease Resolve 2018-042019-04-27 2019-04-27 Univers (bacterial (bacterial d 05-01 00:00:00 15:52:37 ity of vaginosis) vaginosis) 00:00: [place] History of History of Disease Resolve 2018-042019-04-27 2019-04-27 Univers substance substance d 1 00:00:00 15:52:50 ity of abuse abuse 00:00: [place] [address] [facility] Branch 30 weeks 30 weeks Disease Resolve 2018-042019-04-27 2019-04-27 Univers gestation gestation d 0-29 00:00:00 15:52:59 ity of of of 00:00: [place] 00 [facility] Gestationa Gestationa Disease Resolve 2018-042019-04-27 2019-04-27 Univers l l d 0-29 00:00:00 15:52:53 ity of proteinuri proteinuri 00:00: [place] a a [facility] Branch Elevated Elevated Disease Resolve 2018-042019-04-27 2019-04-27 Univers blood blood d 0-28 00:00:00 15:52:54 ity of pressure pressure 00:00: [place] reading reading 00 Medical without without Branch diagnosis diagnosis of of hypertensi hypertensi on on Abnormal Abnormal Disease Resolve 2018-042019-04-27 2019-04-27 Univers maternal maternal d 0-11 00:00:00 15:52:56 it y of glucose glucose 00:00: [place] tolerance, tolerance, 00 Me dical antepartum antepartum Br anch History of History of Disease Resolve 2019-04-27 2019-04-27 Univers d - 00:00:00 15:52:51 it y of section section 00:00: [place] 00 Medical Branch Vaginal Vaginal Disease Resolve 2019-04-27 2019-04-27 Univers bleeding bleeding d - 00:00:00 15:52:36 it y of in in 00:00: [place] 00 Medi luis Branch UTI UTI Disease Resolve 2019-04-27 2019-04-27 Univers symptoms symptoms d 3-27 00:00:00 15:52:39 it y of 00:00: [place] 00 Medical Branch Hypertensi Hypertensi Disease Resolve 2018-042019-02-01 2019-02-01 Univers on on d 0- 00:00:00 17:14:59 it[place] affecting affecting [place] [facility] BMI BMI Disease Resolve 2017-042018-08-05 2018-08-05 Univers 32.0-32.9, 32.0-32.9, d 1-13 00:00:00 16:48:21 ity of adult adult 00:00: [place] 00 Medical Branch Encounter Encounter Disease Resolve 2018-02-16 2018-02-16 Univers for IUD for IUD d - 00:00:00 17:32:35 ity of insertion insertion 00:00[place] [facility] Other Other Disease Resolve 2018-02-16 2018-02-16 Univers [...] ity of disorder disorder 00:00: [place] 00 Medical [place] Disease Resolve 2014-042016-08-29 2016-08-29 Univers d 0-06 00:00:00 21:17:51 ity of 00:00: [place] 00 Medical Branch GBBS GBBS Disease Resolve 2016-08-29 2016-08-29 Univers (group B (group B d 9-16 00:00:00 21:17:52 it y of beta beta 00:00: [place] hemolytic hemolytic [address] [facility] Streptococ Streptococ Br anch cus) cus) pharyngiti pharyngiti s s Antepartum Antepartum Disease Resolve 2016-08-29 2016-08-29 Univers anemia in anemia in d 9-14 00:00:00 21:17:56 ity of third third 00:00: [place] trimester trimester 00 [facility] Tobacco Tobacco Disease Resolve 2016-08-29 2016-08-29 Univers use use d 7 00:00:00 21:17:45 ity of disorder disorder 00:00: [place] complicati complicati 00 Me dical ng ng Branch , , childbirth childbirth , or , or puerperium puerperium , , antepartum antepartum Altered Altered Disease Resolve 2016-08-29 2016-08-29 Univers mental mental d 08-24 00:00:00 21:17:57 ity of status status 00:00: [place] 00 [facility] Drug Drug Disease Resolve 2016-08-29 2016-08-29 Univers abuse, abuse, d 4- 00:00:00 21:17:54 ity of opioid opioid 00:00: [place] type type 00 [facility] Multiparou Multiparou Disease Resolve 2016-08-29 2016-08-29 Univers s s d 4-02 00:00:00 21:17:51 ity of 00:00: [place] 00 [facility] Supervisio Supervisio Disease Resolve 2016-08-29 2016-08-29 Univers n of other n of other d 2-28 00:00:00 21:17:47 ity of high-risk high-risk 00:00[place] [facility] Allergies, Adverse Reactions, Alerts Allergy Allergy Status Severity Reaction(s) Onset Inactive Treating Comm ents Source Name Type Date Date Clinician NO KNOWN Drug Active Univers ALLERGIE Class ity of S [facility] Social History Social Habit Start Date Stop Date Quantity Comments Source ASSERTION 2020-07-27 University of 00:00:00 [facility] Exposure to Not sure University of SARS-CoV-2 (event) [facility] Alcohol intake 2021-04-16 2021-04-16 Current University of 00:00:00 00:00:00 non-drinker of [facility] alcohol [place] (finding) Cigarettes smoked 2019-05-18 2019-05-18 Univers ity of current (pack per 00:00:00 00:00:00 Hilda nguyen day) - Reported Branch Cigarette 2019-05-18 2019-05-18 University of pack-years 00:00:00 00:00:00 [facility] Tobacco use and 2019-05-18 2019-05-18 Never used Universit y of exposure 00:00:00 00:00:00 [facility] History of tobacco 2015-08-06 2019-04-06 Cigarette Smoker University of use 00:00:00 00:00:00 [facility] Alcohol Comment 2017-10-09 2017-10-09 approx 2 drinks Univ ersity of 00:00:00 00:00:00 per week [facility] Sex [birth year] Universit y of 00:00:00 00:00:00 [facility] Smoking Status Start Date Stop Date Source Former smoker 2019-05-18 00:00:00 2019-05-18 00:00:00 Universi ty of [facility] Medications Ordered Filled Start Stop Current Ordering Indication Dosage Frequency Signature Comments Components Source Medication Medication Date Date Medication? Clinician (SIG) Name Name ketorolac 2021- No 30mg 30 mg, Unive rs (TORADOL) 05-03 Intramuscu ity of injection 09:30: 08:33 [place], ONCE, [place] 30 mg 00 :00 1 dose, On Medical Fri Branch 05/03/21 at 0330, ANA mupirocin Yes [id number] Apply to Univers (BACTROBAN) 05-03 affected ity of 2 % cream 00:00: area(s) 3 [place] 00 (three) Medical times Branch daily. ibuprofen Yes [id number] 800mg Take 1 Univers 800 mg 05-03 tablet by ity of tablet 00:00: mouth [place] 00 every 8 Medical (eight) Branch hours as needed for Pain (scale 4-6). dexamethaso No 10mg 10 mg, IV Univers ne 04-17 Push, ity of (DECADRON 04:15: 03:24 ONCE, 1 [place] PHOSPHATE) 00 :00 dose, On Medic al injection Tue Branch 10 mg 04/16/21 at 2215, STAT diphenhydrA 2021- No 25mg 25 mg, Uni vers MINE 04-17 Slow IV ity of (BENADRYL) 04:15: 03:24 Push, [place] injection 00 :00 ONCE, 1 Medical 25 mg dose, On Branch Thu04/16/21 at 2215, STAT metoclopram 2021- No 10mg 10 mg, Uni vers katey HCl 04-17 Slow IV ity of (REGLAN) 04:15: 03:25 Push, [place] injection 00 :00 ONCE, 1 Medical 10 mg dose, On Branch Thu04/16/21 at 2215, ANA ketorolac 2021- No 15mg 15 mg, Unive rs tromethamin 04-17 Slow IV ity of e (TORADOL) 04:15: 03:29 [place], [place] injection 00 :00 ONCE, 1 Medical 15 mg dose, On Branch Thu04/16/21 at 2215, ANA NaCl 0.9% 2021- No 1000mL at 999 Uni vers (NS) bolus 04-17 mL/hr, ity of infusion 04:15: 04:45 1,000 mL, [place] 1,000 mL 00 :00 IV Medical Infusion, Branch ONCE, 1 dose, On Thu04/16/21 at 2215, ANA metoclopram 0 Yes [id number] 10mg Take 1 Univers katey HCl 10 1-11 tablet by ity of mg tablet 00:00: mouth [place] 00 every 6 Medical (six) Branch hours as needed for Nausea and Vomiting (N/V). butalbital- 0 Yes [id number] 1{tbl} Take 1 Univers acetaminoph 1-11 tablet by ity of en-caff 00:00: mouth [place] 50-325-40 00 every 6 Medical mg tablet (six) Branch hours as needed for Pain (scale 7-10). ibuprofen 0 Yes [id number] 600mg Take 1 U nivers 600 mg 1-11 tablet by ity of tablet 00:00: mouth [place] 00 every 8 Medical (eight) Branch hours as needed for Pain (scale 4-6). metoclopram 2021-0 Yes [id number] 10mg Take 1 Univers katey HCl 10 1-11 tablet by ity of mg tablet 00:00: mouth [place] 00 every 6 Medical (six) Branch hours as needed for Nausea and Vomiting (N/V). butalbital- Yes [id number] 1{tbl} Take 1 Univers acetaminoph 1-11 tablet by ity of en-caff 00:00: mouth [place] 50-325-40 00 every 6 Medical mg tablet (six) Branch hours as needed for Pain (scale 7-10). ibuprofen 0 Yes [id number] 600mg Take 1 U nivers 600 mg 1-11 tablet by ity of tablet 00:00: mouth [place] 00 every 8 Medical (eight) Branch hours as needed for Pain (scale 4-6). metoclopram 0 Yes [id number] 10mg Take 1 Univers katey HCl 10 1-11 tablet by ity of mg tablet 00:00: mouth [place] 00 every 6 Medical (six) Branch hours as needed for Nausea and Vomiting (N/V). butalbital- Yes [id number] 1{tbl} Take 1 Univers acetaminoph 1-11 tablet by ity of en-caff 00:00: mouth [place] 50-325-40 00 every 6 Medical mg tablet (six) Branch hours as needed for Pain (scale 7-10). ibuprofen 0 Yes [id number] 600mg Take 1 U nivers 600 mg 1-11 tablet by ity of tablet 00:00: mouth [place] 00 every 8 Medical (eight) Branch hours as needed for Pain (scale 4-6). lidocaine 0 2021- Yes 1{patch 1 Patch, Univers (LIDODERM) 04-15 } Topical, ity of 5 % (700 11:30: 14:59 Administer [place] mg/patch) 00 :00 over 12 Medical patch 1 Hours, Branch Patch DAILY, 5 doses, First dose on Thu04/15/21 at 0530, Last dose on Thu04/18/21 at 0900, Routine lidocaine 2021- No 1{patch 1 Patch, Univers (LIDODERM) 04-15 } Topical, ity of 5 % (700 11:30: 01:47 Administer [place] mg/patch) 00 :27 over 12 Medical patch 1 Hours, Branch Patch DAILY, 5 doses, First dose on Thu04/15/21 at 0530, Last dose on Thu04/18/21 at 0900, Routine acetaminoph 0 Yes 1000mg 1,000 mg, Univers en 1-10 Oral, ity of (TYLENOL) 02:00: Q12H, [place] tablet 00 First dose Medical 1,000 mg (after Branch last modificati on) on 04/14/21 at 1999, Until Discontinu ed, Routine acetaminoph 2021- No 1000mg 1,000 mg, Univers en 1-10 -11 Oral, ity of (TYLENOL) 02:00: 01:47 Q12H, [place] tablet 00 :27 First dose Medical 1,000 mg (after Branch last modificati on) on 04/14/21 at 1999, Until Discontinu ed, Routine celecoxib Yes [id number] 200mg Take 1 U nivers 200 mg 1-10 capsule by ity of capsule 00:00: mouth [place] 00 every 12 Medical (twelve) Branch hours. acetaminoph Yes [id number] 1000mg Take 2 Univers en 500 mg 1-10 tablets by ity of tablet 00:00: mouth [place] 00 every 12 Medical (twelve) Branch hours. baclofen 10 Yes [id number] 10mg Take 1 Univers mg tablet 1-10 tablet by ity o f 00:00: mouth 3 [place] 00 (three) Medical times Branch daily. gabapentin Yes [id number] 300mg Take 1 Univers 300 mg 1-10 capsule by ity of capsule 00:00: mouth 3 [place] 00 (three) Medical times Branch daily. lidocaine 5 Yes [id number] 3{patch Apply 3 Univers % (700 1-10 } Patches to ity of mg/patch) 00:00: area(s) [place] patch 00 daily. Medical Branch docusate Yes [id number] 240mg Take 1 U nivers calcium 240 1-10 capsule by it y of mg capsule 00:00: mouth [place] 00 daily as Medical needed for Branch Constipati on. 2021- Yes [id number] 1{tbl} Take 1 Univers vitamin 1-10 tablet by ity of w/FA tablet 00:00: mouth [place] 00 daily. Medical Branch ferrous 0 Yes [id number] 325mg Take 1 Un mackenzie sulfate 325 1-10 tablet by ity of mg (65 mg 00:00: mouth 2 [place] iron) 00 (two) Medical tablet times Branch daily. ibuprofen 2021-0 Yes [id number] 600mg Take 1 Univers 600 mg 1-10 tablet by ity of tablet 00:00: mouth [place] 00 every 6 Medical (six) Branch hours as needed (Pain). Take with food or milk. celecoxib 2021-0 Yes [id number] 200mg Take 1 U nivers 200 mg 1-10 capsule by ity of capsule 00:00: mouth [place] 00 every 12 Medical (twelve) Branch hours. acetaminoph 2021-0 Yes [id number] 1000mg Take 2 Univers en 500 mg 1-10 tablets by ity of tablet 00:00: mouth [place] 00 every 12 Medical (twelve) Branch hours. baclofen 10 2021-0 Yes [id number] 10mg Take 1 Univers mg tablet 1-10 tablet by ity o f 00:00: mouth 3 [place] 00 (three) Medical times Branch daily. gabapentin 2021-0 Yes [id number] 300mg Take 1 Univers 300 mg 1-10 capsule by ity of capsule 00:00: mouth 3 [place] 00 (three) Medical times Branch daily. lidocaine 5 2021-0 Yes [id number] 3{patch Apply 3 Univers % (700 1-10 } Patches to ity of mg/patch) 00:00: area(s) [place] patch 00 daily. Medical Branch docusate 0 Yes [id number] 240mg Take 1 U nivers calcium 240 1-10 capsule by it y of mg capsule 00:00: mouth once [place] 00 daily as Medical needed for Branch Constipati on. 2021-0 Yes [id number] 1{tbl} Take 1 Univers vitamin 1-10 tablet by ity of w/FA tablet 00:00: mouth [place] 00 daily. Medical Branch ferrous 2021-0 Yes [id number] 325mg Take 1 Un mackenzie sulfate 325 1-10 tablet by ity of mg (65 mg 00:00: mouth 2 [place] iron) 00 (two) Medical tablet times Branch daily. ibuprofen 2021-0 Yes [id number] 600mg Take 1 Univers 600 mg 1-10 tablet by ity of tablet 00:00: mouth [place] 00 every 6 Medical (six) Branch hours as needed (Pain). Take with food or milk. celecoxib 2021-0 Yes [id number] 200mg Take 1 U nivers 200 mg 1-10 capsule by ity of capsule 00:00: mouth [place] 00 every 12 Medical (twelve) Branch hours. acetaminoph 2021-0 Yes [id number] 1000mg Take 2 Univers en 500 mg 1-10 tablets by ity of tablet 00:00: mouth [place] 00 every 12 Medical (twelve) Branch hours. baclofen 10 2021-0 Yes [id number] 10mg Take 1 Univers mg tablet 1-10 tablet by ity o f 00:00: mouth 3 [place] 00 (three) Medical times Branch daily. gabapentin 2021-0 Yes [id number] 300mg Take 1 Univers 300 mg 1-10 capsule by ity of capsule 00:00: mouth 3 [place] 00 (three) Medical times Branch daily. lidocaine 5 2021-0 Yes [id number] 3{patch Apply 3 Univers % (700 1-10 } Patches to ity of mg/patch) 00:00: area(s) [place] patch 00 daily. Medical Branch docusate 0 Yes [id number] 240mg Take 1 U nivers calcium 240 1-10 capsule by it y of mg capsule 00:00: mouth once [place] 00 daily as Medical needed for Branch Constipati on. 2021-0 Yes [id number] 1{tbl} Take 1 Univers vitamin 1-10 tablet by ity of w/FA tablet 00:00: mouth [place] 00 daily. Medical Branch ferrous 2021-0 Yes [id number] 325mg Take 1 Un mackenzie sulfate 325 1-10 tablet by ity of mg (65 mg 00:00: mouth 2 [place] iron) 00 (two) Medical tablet times Branch daily. ibuprofen 2021-0 Yes [id number] 600mg Take 1 Univers 600 mg 1-10 tablet by ity of tablet 00:00: mouth [place] 00 every 6 Medical (six) Branch hours as needed (Pain). Take with food or milk. celecoxib 2021-0 Yes [id number] 200mg Take 1 U nivers 200 mg 1-10 capsule by ity of capsule 00:00: mouth [place] 00 every 12 Medical (twelve) Branch hours. acetaminoph 2021-0 Yes [id number] 1000mg Take 2 Univers en 500 mg 1-10 tablets by ity of tablet 00:00: mouth [place] 00 every 12 Medical (twelve) Branch hours. baclofen 10 2021-0 Yes [id number] 10mg Take 1 Univers mg tablet 1-10 tablet by ity o f 00:00: mouth 3 [place] 00 (three) Medical times Branch daily. gabapentin 2021-0 Yes [id number] 300mg Take 1 Univers 300 mg 1-10 capsule by ity of capsule 00:00: mouth 3 [place] 00 (three) Medical times Branch daily. lidocaine 5 2021-0 Yes [id number] 3{patch Apply 3 Univers % (700 1-10 } Patches to ity of mg/patch) 00:00: area(s) [place] patch 00 daily. Medical Branch docusate 2021-0 Yes [id number] 240mg Take 1 U nivers calcium 240 1-10 capsule by it y of mg capsule 00:00: mouth once [place] 00 daily as Medical needed for Branch Constipati on. 2021-0 Yes [id number] 1{tbl} Take 1 Univers vitamin 1-10 tablet by ity of w/FA tablet 00:00: mouth [place] 00 daily. Medical Branch ferrous 2021-0 Yes [id number] 325mg Take 1 Un mackenzie sulfate 325 1-10 tablet by ity of mg (65 mg 00:00: mouth 2 [place] iron) 00 (two) Medical tablet times Branch daily. ibuprofen 2021-0 Yes [id number] 600mg Take 1 Univers 600 mg 1-10 tablet by ity of tablet 00:00: mouth [place] 00 every 6 Medical (six) Branch hours as needed (Pain). Take with food or milk. celecoxib 2021-0 Yes [id number] 200mg Take 1 U nivers 200 mg 1-10 capsule by ity of capsule 00:00: mouth [place] 00 every 12 Medical (twelve) Branch hours. acetaminoph 2021-0 Yes [id number] 1000mg Take 2 Univers en 500 mg 1-10 tablets by ity of tablet 00:00: mouth [place] 00 every 12 Medical (twelve) Branch hours. baclofen 10 2021-0 Yes [id number] 10mg Take 1 Univers mg tablet 1-10 tablet by ity o f 00:00: mouth 3 [place] 00 (three) Medical times Branch daily. gabapentin 2021-0 Yes [id number] 300mg Take 1 [facility] 300 mg 1-10 capsule by ity of capsule 00:00: mouth 3 [place] 00 (three) Medical times Branch daily. lidocaine 5 Yes [id number] 3{patch Apply 3 Univers % (700 1-10 } Patches to ity of mg/patch) 00:00: area(s) [place] patch 00 daily. Medical Branch docusate Yes [id number] 240mg Take 1 U nivers calcium 240 1-10 capsule by it y of mg capsule 00:00: mouth once [place] 00 daily as Medical needed for Branch Constipati on. Yes [id number] 1{tbl} Take 1 Univers vitamin 1-10 tablet by ity of w/FA tablet 00:00: mouth [place] 00 daily. Medical Branch ferrous Yes [id number] 325mg Take 1 Un [facility]enzie sulfate 325 1-10 tablet by ity of mg (65 mg 00:00: mouth 2 [place] iron) 00 (two) Medical tablet times Branch daily. ibuprofen Yes [id number] 600mg Take 1 Univers 600 mg 1-10 tablet by ity of tablet 00:00: mouth [place] 00 every 6 Medical (six) Branch hours as needed (Pain). Take with food or milk. HYDROcodone 2021- Yes [id number] 1{tbl} Take 1 U nivers -acetaminop 1-10 -18 tablet by it y of hen 5-325 00:00: 05:59 mouth [place] mg tablet 00 :00 every 6 Medical (six) Branch hours as needed for Pain (scale 7-10) for up to 7 days. Indication s: acute pain HYDROcodone 2021- Yes [id number] 1{tbl} Take 1 U nivers -acetaminop 1-10 -18 tablet by it y of hen 5-325 00:00: 05:59 mouth [place] mg tablet 00 :00 every 6 Medical (six) Branch hours as needed for Pain (scale 7-10) for up to 7 days. Indication s: acute pain HYDROcodone 2021- Yes [id number] 1{tbl} Take 1 U nivers -acetaminop 1-10 -18 tablet by it y of hen 5-325 00:00: 05:59 mouth [place] mg tablet 00 :00 every 6 Medical (six) Branch hours as needed for Pain (scale 7-10) for up to 7 days. Indication s: acute pain HYDROcodone 2021- Yes [id number] 1{tbl} Take 1 U nivers -acetaminop 04-15 tablet by it y of hen 5-325 00:00: 05:59 mouth [place] mg tablet 00 :00 every 6 Medical (six) Branch hours as needed for Pain (scale 7-10) for up to 7 days. Indication s: acute pain celecoxib Yes 200mg 200 mg, Univ ers (CELEBREX) 04-14 Oral, ity of capsule 200 04:45: Q12H, [place] mg 00 First dose Medical on Sat Branch 04/13/21 at 2245, Until Discontinu ed, Routine celecoxib 2021- No 200mg 200 mg, Uni vers (CELEBREX) 04-14 Oral, ity of capsule 200 04:45: 01:47 Q12H, [place] mg 00 :27 First dose Medical on [facility] Branch 04/13/21 at 2245, Until Discontinu ed, Routine methocarbam 2021- Yes 1000mg 1,000 mg, Univers oL 04-14 Oral, Q8H, ity of (ROBAXIN) 04:00: 03:59 6 doses, [place] tablet 00 :00 First dose Medical 1,000 mg (after Branch last modificati on) on 04/13/21 at 2200, Last dose on Thu04/15/21 at 1400, Routine lidocaine 2021- No 1{patch 1 Patch, Univers (LIDODERM) 04-14 } Topical, ity of 5 % (700 04:00: 10:43 Administer [place] mg/patch) 00 :53 over 12 Medical patch 1 Hours, Branch Patch Q8H, 9 doses, First dose (after last modificati on) on Thu04/13/21 at 2200, Last dose on Thu04/16/21 at 1400, Routine acetaminoph 2021- No 1000mg 1,000 mg, Univers en 04-14 Oral, Q6H, ity of (TYLENOL) 00:00: 17:48 First dose [place] tablet 00 :34 on [facility] Medical 1,000 mg 04/13/21 at Branch 1800, Until Discontinu ed, Routine celecoxib 2021- No 200mg 200 mg, Uni vers (CELEBREX) 04-13 Oral, BID ity of capsule 200 23:00: 17:31 MEALS, [place] mg 00 :55 First dose Medical (after Branch last reorder) on 04/13/21 at 1700, Until Discontinu ed, Routine ketorolac 2021- No 30mg 30 mg, Unive rs (TORADOL) 04-13 Slow IV ity of injection 22:30: 22:27 Push, [place] 30 mg 00 :00 ONCE, 1 Medical dose, On Branch 04/13/21 at 1630, Routine traMADoL 2021- Yes 100mg 100 mg, Univ ers (ULTRAM) 04-13 Oral, ity of tablet 100 21:45: 13:59 Q12H, 6 [place] mg 00 :00 doses, Medical First dose Branch on 04/13/21 at 1545, Last dose on Thu04/15/21 at 2000, Routine traMADoL 2021- No 100mg 100 mg, Univ ers (ULTRAM) 04-13 Oral, ity of tablet 100 21:45: 01:47 Q12H, 6 [place] mg 00 :27 doses, Medical First dose Branch on 04/13/21 at 1545, Last dose on Thu04/15/21 at 2000, Routine HYDROcodone Yes 1{tbl} 1 tablet, Univers -acetaminop 04-13 Oral, ity of hen (NORCO 21:35: Q8HPRN, [place] 5) 5-325 mg 57 Starting Medi luis tablet 1 on Sat Branch tablet 04/13/21 at 1535, Until Discontinu ed, Routine, Pain (scale 7-10) HYDROcodone 2021- No 1{tbl} 1 tablet, Univers -acetaminop 04-13 Oral, ity of hen (NORCO 21:35: 01:47 Q8HPRN, [place] 5) 5-325 mg 57 :27 Starting Medi luis tablet 1 on Sat Branch tablet 04/13/21 at 1535, Until 04/15/21 at 1947, Routine, Pain (scale 7-10) methocarbam 2021- No 1000mg 1,000 mg, Univers oL 04-13 Oral, TID, ity of (ROBAXIN) 20:00: 17:31 First dose [place] tablet 00 :55 (after Medical 1,000 mg last Branch reorder) on 04/13/21 at 1400, Until Discontinu ed, Routine acetaminoph 2021- No 1000mg 1,000 mg, Univers en ADULT 04-13 IV ity of (OFIRMEV) 18:00: 23:27 Infusion, [place] injection 00 :18 Administer Medi luis 1,000 mg over 15 Branch Minutes, Q6H, 4 doses, First dose (after last modificati on) on 04/13/21 at 1200, Last dose on 04/14/21 at 0600, Routine
Indicatio n: Perioperat leisa Patient methocarbam 2021- No 1000mg 1,000 mg, Univers oL 04-13 Oral, TID, ity of (ROBAXIN) 17:45: 21:42 First dose [place] tablet 00 :45 (after Medical 1,000 mg last Branch modificati on) on 04/13/21 at 1145, Until Discontinu ed, Routine lidocaine 2021- No 1{patch 1 Patch, Univers (LIDODERM) 04-13 } Topical, ity of 5 % (700 16:00: 21:42 Administer [place] mg/patch) 00 :45 over 12 Medical patch 1 Hours, Branch Patch TID, First dose on 04/13/21 at 1000, Until Discontinu ed, Routine sennosides- Yes 1{tbl} 1 tablet, Univers docusate 04-13 Oral, ity of sodium 15:00: DAILY, [place] (SENOKOT-S) 00 First dose Me dical 8.6-50 mg on Sat Branch per tablet 04/13/21 at 1 tablet 0900, Until Discontinu ed, Routine sennosides- 2021-0 2021- No 1{tbl} 1 tablet, Univers docusate 04-1311 Oral, ity of sodium 15:00: 01:47 DAILY, [place] (SENOKOT-S) 00 :27 First dose Me dical 8.6-50 mg on Sat Branch per tablet 04/13/21 at 1 tablet 0900, Until Discontinu ed, Routine gabapentin Yes 300mg 300 mg, Uni vers (NEURONTIN) 04-13 Oral, TID, it y of capsule 300 14:00: First dose [place] mg 00 (after Medical last Branch modificati on) on 04/13/21 at 0800, Until Discontinu ed, Routine gabapentin 2021- No 300mg 300 mg, Un [facility] (NEURONTIN) 04-13 Oral, TID, i ty of capsule 300 14:00: 01:47 First dose [place] mg 00 :27 (after Medical last Branch modificati on) on 04/13/21 at 0800, Until Discontinu ed, Routine ketorolac No 15mg 15 mg, Unive rs (TORADOL) 04-13 Slow IV ity of injection 12:00: 15:49 Push, Q6H, [place] 15 mg 00 :10 4 doses, Medical First dose Branch on 04/13/21 at 0600, Last dose on 04/14/21 at 0000, Routine acetaminoph No 1000mg 1,000 mg, Univers en ADULT 04-13 IV ity of (OFIRMEV) 12:00: 15:49 Infusion, [place] injection 00 :10 Administer Medi luis 1,000 mg over 15 Branch Minutes, Q8H, 3 doses, First dose on 04/13/21 at 0600, Last dose on 04/13/21 at 2200, Routine
Indicatio n: Perioperat leisa Patient ceFAZolin 2021- No 2000mg 2 g (2,000 Univers in 0.9% 04-13 mg), IV ity of sodium 03:00: 05:12 Piggyback, [place] chloride 00 :00 Q6H ABX, 1 Medic al (ANCEF) 2 dose, Branch gram/100 mL First dose RTU 2 g (after last reorder) on Thu04/12/21 at 2100, Administer over 30 Minutes
Reason for Anti-Infec tive: Surgical Prophylaxi s
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
Duration of therapy: within 24 hours of surgery baclofen Yes 10mg 10 mg, Univers (LIORESAL) 08 Oral, TID, ity of tablet 10 02:00: First dose [place] mg [address] [facility] 04/12/21 at [place] 1999, Until Discontinu ed, Routine baclofen 2021- No 10mg 10 mg, Univer s (LIORESAL) 04-13 Oral, TID, it y of tablet 10 02:00: 01:47 First dose [place] mg 00 :[address] [facility] 04/12/21 at [place] 1999, Until Discontinu ed, Routine simethicone Yes 125mg 125 mg, Un [facility] (MYLICON) 04-13 Oral, ity of chewable 00:00: PC+HS, [place] tablet 125 00 First dose Med ical mg on Thu [place] 04/12/21 at 1800, Until Discontinu ed, Routine simethicone 2021- No 125mg 125 mg, U nivers (MYLICON) 04-13 Oral, ity of chewable 00:00: 01:47 PC+HS, [place] tablet 125 00 :27 First dose Med ical mg on Thu [place] 04/12/21 at 1800, Until Discontinu ed, Routine rho(D) Yes 300ug 300 mcg, Univer s immune 04-12 Intramuscu ity of globulin 23:52: lar, ONCE, [place] (RHOGAM) 17 For 1 Medical syringe 300 dose, Branch mcg Conditiona l, Routine rho(D) No 300ug 300 mcg, Unive rs immune 04-1211 Intramuscu ity of globulin 23:52: 01:47 lar, ONCE, [place] (RHOGAM) 17 :27 For 1 Medical syringe 300 dose, Branch mcg Conditiona l, Routine diphenhydrA Yes 25mg 25 mg, IV U nivers MINE-0.9 % 04-12 Piggyback, ity of sod.chlr 23:52: Administer [place] (BENADRYL) 12 over 30 Medica l 25 mg/50 mL Minutes, Bran ch piggyback Q6HPRN, 1 25 mg dose, Starting on Thu04/12/21 at 1752, Until Discontinu ed, Routine, Itching diphenhydrA 2021-0 Yes 25mg 25 mg, Univ ers MINE 04-12 Oral, ity of (BENADRYL) 23:52: Q6HPRN, [place] tablet 25 12 Starting Medica l mg on Thu Branch 04/12/21 at 1752, Until Discontinu ed, Routine, Sleep, Itching ondansetron 2021-0 Yes 4mg 4 mg, Slow Univers (ZOFRAN 04-12 IV Push, ity of (PF)) 23:52: Q8HPRN, [place] injection 4 12 Starting Medi luis mg on Thu Branch 04/12/21 at 1752, Until Discontinu ed, Routine, Nausea and Vomiting (N/V) bisacodyL 0 Yes 10mg 10 mg, Univer s (DULCOLAX) 04-12 Rectal, ity of suppository 23:52: QDAILYPRN, [place] 10 mg 12 Starting Medical on Thu Branch 04/12/21 at 1752, Until Discontinu ed, Routine, Constipati on magnesium 2021-0 Yes 30mL 30 mL, Univer s hydroxide 04-12 Oral, ity of (MILK OF 23:52: QDAILYPRN, [place] MAGNESIA) 12 Starting Medica l 400 mg/5 mL on Thu Branch suspension 04/12/21 at 30 mL 1752, Until Discontinu ed, Routine, Constipati on diphenhydrA 2021-0 202- No 25mg 25 mg, IV Univers MINE-0.9 % 04-12 Piggyback, it y of sod.chlr 23:52: 01:47 Administer [place] (BENADRYL) 12 :27 over 30 Medica l 25 mg/50 mL Minutes, Bran ch piggyback Q6HPRN, 1 25 mg dose, Starting on Thu04/12/21 at 1752, Until 04/15/21 at 1947, Routine, Itching diphenhydrA 2021-0 2022- No 25mg 25 mg, Uni vers MINE 04-12 Oral, ity of (BENADRYL) 23:52: 01:47 Q6HPRN, [place] tablet 25 12 :27 Starting Medica l mg on Fri Branch 04/12/21 at 1752, Until Thu04/15/21 at 1947, Routine, Sleep, Itching ondansetron 2021- No 4mg 4 mg, Slow Univers (ZOFRAN 04-12 IV Push, ity of (PF)) 23:52: 01:47 Q8HPRN, [place] injection 4 12 :27 Starting Medi luis mg on Thu Branch 04/12/21 at 1752, Until Thu04/15/21 at 1947, Routine, Nausea and Vomiting (N/V) bisacodyL 2021- No 10mg 10 mg, Unive rs (DULCOLAX) 04-12 Rectal, ity o f suppository 23:52: 01:47 QDAILYPRN, [place] 10 mg 12 :27 Starting Medical on Fri Branch 04/12/21 at 1752, Until Thu04/15/21 at 194, Routine, Constipati on magnesium 2021- No 30mL 30 mL, Unive rs hydroxide 04-12 Oral, ity of (MILK OF 23:52: 01:47 QDAILYPRN, [place] MAGNESIA) 12 :27 Starting Medica l 400 mg/5 mL on Thu Branch suspension 04/12/21 at 30 mL 1752, Until Thu04/15/21 at 194, Routine, Constipati on fentaNYL 2 2021- No Intra-op Un [place] mcg/mL + 04-12 ity of bupivacaine 21:00: 18:35 [place] 0.1% in NS 00 :39 Medical 250 mL Branch epidural bag buprenorphi Yes 8mg 8 mg, Unive rs ne HCL 04-12 Sublingual ity of (SUBUTEX) 20:00: , TID, [place] sublingual 00 First dose Med ical tablet 8 mg on Thu Branch 04/12/21 at 1400, Until Discontinu ed, Routine buprenorphi 2021- No 8mg 8 mg, Univ ers ne HCL 04-12 Sublingual ity of (SUBUTEX) 20:00: 01:47 , TID, [place] sublingual 00 :27 First dose Med ical tablet 8 mg on Fri Branch 04/12/21 at 1400, Until Discontinu ed, Routine traZODone Yes 50mg 50 mg, Univer s (DESYREL) 04-12 Oral, ity of tablet 50 14:24: QHSPRN, [place] mg 31 Starting Medical on Fri Branch 04/12/21 at 0824, Until Discontinu ed, Routine, Insomnia traZODone No 50mg 50 mg, Unive rs (DESYREL) 04-12 Oral, ity of tablet 50 14:24: 01:47 QHSPRN, [place] mg 31 :27 Starting Medical on Fri Branch 04/12/21 at 0824, Until 04/15/21 at 1947, Routine, Insomnia acetaminoph No 650mg 650 mg, U nivers en 04-12 Oral, ity of (TYLENOL) 13:00: 17:12 ONCE, 1 [place] tablet 650 00 :00 dose, On Medic al mg 04/12/21 Branch at 0700, Routine sodium No 30mL 30 mL, Univers citrate-cit 04-12 Oral, ity of link acid 12:56: 19:04 PRE-PROCED [place] (BICITRA) 31 :00 URE ONCE, Medic al 500-334 1 dose, Branch mg/5 mL Starting solution 30 on Fri mL 04/12/21 at 0656, Until 04/14/21 at 2359, Routine, Surgery/Pr ocedure ceFAZolin No 2000mg 2 g (2,000 Univers in 0.9% 04-12 mg), IV ity of sodium 12:56: 19:34 Piggyback, [place] chloride 31 :00 O.R. Medical (ANC) 2 HOLDING Branch gram/100 mL ONCE, 1 RTU 2 g dose, Starting on 04/12/21 at 0656, Until Discontinu ed, Administer over 30 Minutes
Reason for Anti-Infec tive: Surgical Prophylaxi s
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
Duration of therapy: within 24 hours of surgery PNV 67-iron 2020-04 Yes [id number] 1{each} Take 1 Univers ps-folate 2-30 09 Each by ity of no.1-dha 00:00: mouth [place] (VITAFOL 00 daily. Medical ULTRA) 29 Branch mg iron- 1 mg-200 mg Cap PNV 67-iron 2020-04- No [id number] 1{each} Take 1 Univers ps-folate 2-30 01-05 09 Each by ity of no.1-dha 00:00: 00:00 mouth [place] (VITAFOL 00 :00 daily. Medical ULTRA) 29 Branch mg iron- 1 mg-200 mg Cap 2020-04 Yes [id number] 1{tbl} Take 1 Univers multivitami 2-16 09 tablet by ity of n ( 00:00: mouth [place] VITAMIN) 00 daily. Medical tablet Branch 2020-04 Yes [id number] 1{tbl} Take 1 Univers multivitami 2-16 09 tablet by ity of n ( 00:00: mouth [place] VITAMIN) 00 daily. Medical tablet Branch 2020-04- No [id number] 1{tbl} Take 1 Univers multivitami 2-16 -10 09 tablet by it y of n ( 00:00: 00:00 mouth [place] VITAMIN) 00 :00 daily. Medical tablet Branch 2020-04- No [id number] 1{tbl} Take 1 Univers multivitami 2-16 -10 09 tablet by it y of n ( 00:00: 00:00 mouth [place] VITAMIN) 00 :00 daily. Medical tablet Branch 2020-04- No [id number] 1{tbl} Take 1 Univers multivitami 2-16 -10 09 tablet by it y of n ( 00:00: 00:00 mouth [place] VITAMIN) 00 :00 daily. Medical tablet Branch SUBOXONE 2020-[address] 1 Univer s 8-2 mg 1-18 FILM UNDER ity of sublingual 00:00: THE TONGUE [place] film 00 TWICE Medical DAILY AND Branch 1/2 FILM UNDER THE TONGUE AT NIGHT gabapentin 2020-04 Yes Univers 300 mg 1-18 ity of capsule 00:00: [place] 00 Medical Branch SUBOXONE 2020-[address] 1 Univer s 8-2 mg 1-18 FILM UNDER ity of sublingual 00:00: THE TONGUE [place] film 00 TWICE Medical DAILY AND Branch 1/2 FILM UNDER THE TONGUE AT NIGHT gabapentin 2020-04 Yes Univers 300 mg 1-18 ity of capsule 00:00: [place] 00 Medical Branch SUBOXONE 2020-[address] 1 Univer s 8-2 mg 1-18 FILM UNDER ity of sublingual 00:00: THE TONGUE [place] film 00 TWICE Medical DAILY AND Branch 1/2 FILM UNDER THE TONGUE AT NIGHT SUBOXONE 2020-[address] 1 Univer s 8-2 mg 1-18 FILM UNDER ity of sublingual 00:00: THE TONGUE [place] film 00 TWICE Medical DAILY AND Branch 1/2 FILM UNDER THE TONGUE AT NIGHT SUBOXONE 2020-[address] 1 Univer s 8-2 mg 1-18 FILM UNDER ity of sublingual 00:00: THE TONGUE [place] film 00 TWICE Medical DAILY AND Branch 1/2 FILM UNDER THE TONGUE AT NIGHT SUBOXONE 2020-[address] 1 Univer s 8-2 mg 1-18 FILM UNDER ity of sublingual 00:00: THE TONGUE [place] film 00 TWICE Medical DAILY AND Branch 1/2 FILM UNDER THE TONGUE AT NIGHT SUBOXONE 2020-[address] 1 Univer s 8-2 mg 1-18 FILM UNDER ity of sublingual 00:00: THE TONGUE [place] film 00 TWICE Medical DAILY AND Branch 1/2 FILM UNDER THE TONGUE AT NIGHT SUBOXONE 2020-[address] 1 Univer s 8-2 mg 1-18 FILM UNDER ity of sublingual 00:00: THE TONGUE [place] film 00 TWICE Medical DAILY AND Branch 1/2 FILM UNDER THE TONGUE AT NIGHT gabapentin 2020-04- No Univer s 300 mg 1-18 01-10 ity of capsule 00:00: 00:00 [place] 00 :00 Medical Branch gabapentin 2020-04- No Univer s 300 mg 1-18 01-10 ity of capsule 00:00: 00:00 [place] 00 :00 Medical Branch gabapentin 2020-2021- No Univer s 300 mg 1-18 01-10 ity of capsule 00:00: 00:00 [place] 00 :00 Medical Branch traZODone 2020-0 Yes Univers 50 mg 3-01 ity of tablet 00:00: [place] 00 Medical Branch traZODone Yes Univers 50 mg 3-01 ity of tablet 00:00: Medical Branch traZODone Yes Univers 50 mg 3-01 ity of tablet 00:00: Medical Branch traZODone Yes Univers 50 mg 3-01 ity of tablet 00:00: Medical Branch traZODone Yes Univers 50 mg 3-01 ity of tablet 00:00: Medical Branch traZODone Yes Univers 50 mg 3-01 ity of tablet 00:00: Medical Branch traZODone Yes Univers 50 mg 3-01 ity of tablet 00:00: [place] Medical [facility] traZODone Yes Univers 50 mg 3-01 ity of tablet 00:00: [facility] Branch traZODone Yes Univers 50 mg 3-01 ity of tablet 00:00: [place] Medical Branch buprenorphi Yes Place Unive rs ne 2-11 under the ity of HCl/naloxon 22:08: tongue. 2 [place] e HCl 23 in AM, 1 Medical (SUBOXONE at Branch ) acetaminoph 2019-04 Yes acute pain 1{tbl} Take [...] (Pain). Take with food or milk. buPROPion 0 Yes Other 150mg Take 1 Univ ers XL 2-12 depression tablet by ity of (WELLBUTRIN 00:00: mouth [place] XL) 150 mg 00 daily. Medical 24 hr Branch tablet Immunizations Ordered Filled Immunization Date Status Comments [facility] e Immunization Name Name Influenza Virus 2021-03-21 Completed Universit y of Vaccine Quad IM, 00:00:00 [facility] dical Preserv and ABX Branch Free 6 MO-64 YRS TDAP 2021-03-21 Completed University of 00:00:00 [facility] Influenza Virus 2021-03-21 Completed Universit y of Vaccine Quad IM, 00:00:00 [facility] dical Preserv and ABX Branch Free 6 MO-64 YRS TDAP 2021-03-21 Completed University of 00:00:00 [facility] Influenza Virus 2021-03-21 Completed Universit y of Vaccine Quad IM, 00:00:00 [facility] dical Preserv and ABX Branch Free 6 MO-64 YRS TDAP 2021-03-21 Completed University of 00:00:00 [facility] Influenza Virus 2021-03-21 Completed Universit y of Vaccine Quad IM, 00:00:00 [facility] dical Preserv and ABX Branch Free 6 MO-64 YRS TDAP 2021-03-21 Completed University of 00:00:00 [facility] Influenza Virus 2021-03-21 Completed Universit y of Vaccine Quad IM, 00:00:00 [facility] dical Preserv and ABX Branch Free 6 MO-64 YRS TDAP 2021-03-21 Completed University of 00:00:00 [facility] Influenza Virus 2021-03-21 Completed Universit y of Vaccine Quad IM, 00:00:00 [facility] dical Preserv and ABX Branch Free 6 MO-64 YRS TDAP 2021-03-21 Completed University of 00:00:00 [facility] Influenza Virus 2021-03-21 Completed Universit y of Vaccine Quad IM, 00:00:00 [facility] dical Preserv and ABX Branch Free 6 MO-64 YRS TDAP 2021-03-21 Completed University of 00:00:00 [facility] Influenza Virus 2021-03-21 Completed Universit y of Vaccine Quad IM, 00:00:00 [facility] dical Preserv and ABX Branch Free 6 MO-64 YRS TDAP 2021-03-21 Completed University of 00:00:00 [facility] HPV9 2020-08-10 Completed University of 00:00:00 [facility] HPV9 2020-08-10 Completed University of 00:00:00 [facility] HPV9 2020-08-10 Completed University of 00:00:00 [facility] HPV9 2020-08-10 Completed University of 00:00:00 [facility] HPV9 2020-08-10 Completed University of 00:00:00 [facility] HPV9 2020-08-10 Completed University of 00:00:00 [facility] HPV9 2020-08-10 Completed University of 00:00:00 [facility] HPV9 2020-08-10 Completed University of 00:00:00 [facility] HPV9 2020-08-10 Completed University of 00:00:00 [facility] HPV9 2020-03-27 Completed University of 00:00:00 [facility] HPV9 2020-03-27 Completed University of 00:00:00 [facility] HPV9 2020-03-27 Completed University of 00:00:00 [facility] HPV9 2020-03-27 Completed University of 00:00:00 [facility] HPV9 2020-03-27 Completed University of 00:00:00 [facility] HPV9 2020-03-27 Completed University of 00:00:00 [facility] HPV9 2020-03-27 Completed University of 00:00:00 [facility] HPV9 2020-03-27 Completed University of 00:00:00 [facility] HPV9 2020-03-27 Completed University of 00:00:00 [facility] TDAP 2020-01-19 Completed University of 00:00:00 [facility] Influenza Virus 2020-01-19 Completed Universit y of Vaccine Quad .5 mL 00:00:00 [facility] [place] [facility] IM 6+ MO Branch TDAP 2020-01-19 Completed University of 00:00:00 [facility] Influenza Virus 2020-01-19 Completed Universit y of Vaccine Quad .5 mL 00:00:00 [facility] [place] [facility] IM 6+ MO Branch TDAP 2020-01-19 Completed University of 00:00:00 [facility] Influenza Virus 2020-01-19 Completed Universit y of Vaccine Quad .5 mL 00:00:00 [place] Medical 6+ MO Branch TDAP 2020-01-19 Completed University of 00:00:00 [facility] Influenza Virus 2020-01-19 Completed Universit y of Vaccine Quad .5 mL 00:00:00 [place] [facility] 6+ MO Branch TDAP 2020-01-19 Completed University of 00:00:00 [facility] Influenza Virus 2020-01-19 Completed Universit y of Vaccine Quad .5 mL 00:00:00 [place] Medical 6+ MO Branch TDAP 2020-01-19 Completed University of 00:00:00 [facility] Influenza Virus 2020-01-19 Completed Universit y of Vaccine Quad .5 mL 00:00:00 [place] Medical 6+ MO Branch TDAP 2020-01-19 Completed University of 00:00:00 [facility] Influenza Virus 2020-01-19 Completed Universit y of Vaccine Quad .5 mL 00:00:00 [place] [facility] 6+ MO Branch TDAP 2020-01-19 Completed University of 00:00:00 [facility] Influenza Virus 2020-01-19 Completed Universit y of Vaccine Quad .5 mL 00:00:00 [place] [facility] 6+ MO Branch TDAP 2020-01-19 Completed University of 00:00:00 [facility] Influenza Virus 2020-01-19 Completed Universit y of Vaccine Quad .5 mL 00:00:00 [facility] 6+ MO Branch HPV9 2019-04-06 Completed University of 00:00:00 [facility] HPV9 2019-04-06 Completed University of 00:00:00 [facility] HPV9 2019-04-06 Completed University of 00:00:00 [facility] HPV9 2019-04-06 Completed University of 00:00:00 [facility] HPV9 2019-04-06 Completed University of 00:00:00 [facility] HPV9 2019-04-06 Completed University of 00:00:00 [facility] HPV9 2019-04-06 Completed University of 00:00:00 [facility] HPV9 2019-04-06 Completed University of 00:00:00 [facility] HPV9 2019-04-06 Completed University of 00:00:00 [facility] TDAP 2019-01-31 Completed University of 00:00:00 [facility] Influenza Virus 2019-01-31 Completed Universit y of Vaccine Quad .5 mL 00:00:00 [place] [facility] 6+ MO Branch TDAP 2019-01-31 Completed University of 00:00:00 [facility] Influenza Virus 2019-01-31 Completed Universit y of Vaccine Quad .5 mL 00:00:00 [place] [facility] 6+ MO Branch TDAP 2019-01-31 Completed University of 00:00:00 [facility] Influenza Virus 2019-01-31 Completed Universit y of Vaccine Quad .5 mL 00:00:00 [place] [facility] 6+ MO Branch TDAP 2019-01-31 Completed University of 00:00:00 [facility] Influenza Virus 2019-01-31 Completed Universit y of Vaccine Quad .5 mL 00:00:00 [facility] 6+ MO Branch TDAP 2019-01-31 Completed University of 00:00:00 [facility] [facility] Influ[facility] Virus 2019-01-31 Completed Universit y of Vaccine Quad .5 mL 00:00:00 [facility] 6+ MO Branch TDAP 2019-01-31 Completed University of 00:00:00 [facility] Influenza Virus 2019-01-31 Completed Universit y of Vaccine Quad .5 mL 00:00:00 [facility] 6+ MO Branch TDAP 2019-01-31 Completed University of 00:00:00 [facility] Influenza Virus 2019-01-31 Completed Universit y of Vaccine Quad .5 mL 00:00:00 [facility] 6+ MO Branch TDAP 2019-01-31 Completed University of 00:00:00 [facility] Influenza Virus 2019-01-31 Completed Universit y of Vaccine Quad .5 mL 00:00:00 [facility] 6+ MO Branch TDAP 2019-01-31 Completed University of 00:00:00 [facility] Influenza Virus 2019-01-31 Completed Universit y of Vaccine Quad .5 mL 00:00:00 [facility] 6+ MO Branch TDAP 2014-12-18 Completed University of 00:00:00 [facility] TDAP 2014-12-18 Completed University of 00:00:00 [facility] TDAP 2014-12-18 Completed University of 00:00:00 [facility] TDAP 2014-12-18 Completed University of 00:00:00 [facility] TDAP 2014-12-18 Completed University of 00:00:00 [facility] TDAP 2014-12-18 Completed University of 00:00:00 [facility] TDAP 2014-12-18 Completed University of 00:00:00 [facility] TDAP 2014-12-18 Completed University of 00:00:00 [facility] TDAP 2014-12-18 Completed University of 00:00:00 [facility] TDAP 2013-06-02 Completed University of 00:00:00 [facility] TDAP 2013-06-02 Completed University of 00:00:00 [facility] TDAP 2013-06-02 Completed University of 00:00:00 [facility] TDAP 2013-06-02 Completed University of 00:00:00 [facility] TDAP 2013-06-02 Completed University of 00:00:00 [facility] TDAP 2013-06-02 Completed University of 00:00:00 [facility] TDAP 2013-06-02 Completed University of 00:00:00 [facility] TDAP 2013-06-02 Completed University of 00:00:00 [facility] TDAP 2013-06-02 Completed University of 00:00:00 [facility] Vital Signs Vital Name Observation Time Observation Value Comments Source Systolic blood 2021-05-03 08:00:00 144 mm[Hg] Univer sity of pressure [facility] Diastolic blood 2021-05-03 08:00:00 98 mm[Hg] Unive rsity of pressure [facility] Heart rate 2021-05-03 08:00:00 71 /min [facility] Oxygen saturation in 2021-05-03 08:00:00 100 /min [facility] Arterial blood by [facility] Pulse oximetry Branch Body temperature 2021-05-03 07:18:00 36.78 Blessing [facility] 2021-05-03 07:18:00 18 /min [facility] Body height 2021-05-03 07:18:00 167.6 cm [facility] Body weight 2021-05-03 07:18:00 86.183 kg [facility] BMI 2021-05-03 07:18:00 30.67 kg/m2 [facility] Systolic blood 2021-04-18 20:58:00 127 mm[Hg] Univer sity of pressure [facility] Diastolic blood 2021-04-18 20:58:00 85 mm[Hg] Unive rsity of pressure [facility] Heart rate 2021-04-18 20:58:00 72 /min Universi ty of [facility] Body temperature 2021-04-18 20:58:00 36.56 Blessing Univ ersity of [facility] Respiratory rate 2021-04-18 20:58:00 18 /min Univ ersity of [facility] Body height 2021-04-18 20:58:00 167.6 cm Universi ty of [facility] [place] Body weight 2021-04-18 20:58:00 88.996 kg Universi ty of [facility] BMI 2021-04-18 20:58:00 31.67 kg/m2 Universi ty of [facility] Systolic blood 2021-04-17 04:00:00 137 mm[Hg] Univer sity of pressure [facility] Diastolic blood 2021-04-17 04:00:00 88 mm[Hg] Unive rsity of pressure [facility] Heart rate 2021-04-17 04:00:00 61 /min Universi ty of [facility] Respiratory rate 2021-04-17 04:00:00 11 /min Univ ersity of [facility] Oxygen saturation in 2021-04-17 04:00:00 99 /min University Arterial blood by [facility] Pulse oximetry [place] Body temperature 2021-04-17 02:55:00 36.44 Blessing Univ ersity of [facility] Body height 2021-04-17 02:55:00 167.6 cm Universi ty of [facility] [place] Body weight 2021-04-17 02:55:00 92.987 kg Universi ty of [facility] BMI 2021-04-17 02:55:00 33.09 kg/m2 Universi ty of [facility] Systolic blood 2021-04-15 22:35:00 136 mm[Hg] Univer sity of pressure [facility] Diastolic blood 2021-04-15 22:35:00 86 mm[Hg] Unive rsity of pressure [facility] Heart rate 2021-04-15 22:35:00 70 /min Universi ty of [facility] Body temperature 2021-04-15 22:35:00 36.78 Blessing Univ ersity of [facility] Respiratory rate 2021-04-15 22:35:00 16 /min Univ ersity of [facility] Oxygen saturation in 2021-04-15 22:35:00 98 /min University of Arterial blood by [facility] luis Pulse oximetry Branch Systolic blood 2021-04-12 15:00:00 124 mm[Hg] Univer sity of pressure [facility] Diastolic blood 2021-04-12 15:00:00 81 mm[Hg] Unive rsity of pressure [facility] Heart rate 2021-04-12 15:00:00 73 /min Universi ty of [facility] Oxygen saturation in 2021-04-12 15:00:00 100 /min University of Arterial blood by [facility] Pulse oximetry Branch Body temperature 2021-04-12 12:33:00 36.78 Blessing Univ ersity of [facility] Respiratory rate 2021-04-12 12:33:00 19 /min Univ ersity of [facility] Systolic blood 2021-04-10 19:39:00 130 mm[Hg] Univer sity of pressure [facility] Diastolic blood 2021-04-10 19:39:00 88 mm[Hg] Unive rsity of pressure [facility] Heart rate 2021-04-10 19:39:00 92 /min Universi ty of [facility] Body temperature 2021-04-10 19:39:00 36.67 Blessing Univ ersity of [facility] Respiratory rate 2021-04-10 19:39:00 20 /min Univ ersity of [facility] Body height 2021-04-10 19:39:00 167.6 cm Universi ty of [facility] Body weight 2021-04-10 19:39:00 95.029 kg [facility]i ty of [facility] BMI 2021-04-10 19:39:00 33.81 kg/m2 Universi ty of [facility] Oxygen saturation in 2021-04-10 19:39:00 98 /min University of Arterial blood by [facility] Pulse oximetry Branch Systolic blood 2021-04-04 18:56:00 129 mm[Hg] Univer sity of pressure [facility] Diastolic blood 2021-04-04 18:56:00 78 mm[Hg] Unive rsity of pressure [facility] Heart rate 2021-04-04 18:56:00 72 /min Universi ty of [facility] Body temperature 2021-04-04 18:56:00 35.94 Blessing Univ ersity of [facility] Respiratory rate 2021-04-04 18:56:00 16 /min Univ ersity of [facility] Body height 2021-04-04 18:56:00 167.6 cm [facility]i [facility] Body weight 2021-04-04 18:56:00 94.065 kg Universi ty of [facility] BMI 2021-04-04 18:56:00 33.47 kg/m2 Universi ty of [facility] Systolic blood 2020-08-10 13:38:00 126 mm[Hg] Univer sity of pressure [facility] Diastolic blood 2020-08-10 13:38:00 87 mm[Hg] Unive rsity of pressure [facility] Heart rate 2020-08-10 13:38:00 86 /min Universi ty of [facility] Body temperature 2020-08-10 13:38:00 36.94 Blessing Univ ersity of [facility] Respiratory rate 2020-08-10 13:38:00 16 /min Univ ersity of [facility] Body height 2020-08-10 13:38:00 165.1 cm [facility] ty [facility] Body weight 2020-08-10 13:38:00 87.091 kg [facility]i ty of [facility] BMI 2020-08-10 13:38:00 31.95 kg/m2 Universi ty of [facility] Systolic blood 2020-08-10 13:38:00 126 mm[Hg] Univer sity of pressure [facility] Diastolic blood 2020-08-10 13:38:00 87 mm[Hg] Unive rsity of pressure [facility] Heart rate 2020-08-10 13:38:00 86 /min Universi ty [facility] Body temperature 2020-08-10 13:38:00 36.94 Blessing Univ ersity of [facility] Respiratory rate 2020-08-10 13:38:00 16 /min Univ ersity of [facility] Body height 2020-08-10 13:38:00 165.1 cm [facility] Body weight 2020-08-10 13:38:00 87.091 kg [facility] BMI 2020-08-10 13:38:00 31.95 kg/m2 [facility] Procedures Procedure Date / Time Performing Clinician Source Performed NOTICE OF PRIVACY 2021-05-03 07:17:42 Doctor Unassvalentina, [facility] PRACTICES [place] [facility] CONSENT/REFUSAL FOR 2021-05-03 07:13:18 Doctor Unassvalentina [facility] DIAGNOSIS AND TREATMENT [place] [facility] BASIC METABOLIC PANEL 2021-04-17 03:14:00 Daniel [facility] (NA, K, CL, CO2, GLUCOSE, Medica l Branch BUN, CREATININE, CA) CBC WITH DIFF 2021-04-17 03:14:00 [facility] URINALYSIS 2021-04-17 03:14:00 [facility] CBC WITH DIFF 2021-04-13 10:44:00 Modetso Nasreen [facility] CBC WITH DIFF 2021-04-13 10:44:00 Nasreen Salvador [facility] ARTERIAL CORD GAS 2021-04-12 20:06:00 Thom Peña [facility] ARTERIAL CORD GAS 2021-04-12 20:06:00 Jenna Peñanath [facility] SECTION 2021-04-12 18:53:00 Criss Duenas [facility] SECTION 2021-04-12 18:53:00 Criss Duenas [facility] CBC WITH DIFF 2021-04-12 14:13:00 Thom Peña [facility] HEPATITIS B SURFACE 2021-04-12 14:13:00 Thom Peña [facility] ANTIGEN [facility] GALV ONLY - SYPHILIS 2021-04-12 14:13:00 [facility] CBC WITH DIFF 2021-04-12 14:13:00 Thom Peña [facility] HEPATITIS B SURFACE 2021-04-12 14:13:00 Thom Peña [facility] [place] ANTIGEN [facility] GALV ONLY - SYPHILIS 2021-04-12 14:13:00 Thom Peña [facility] IGG/IGM Medical Branch HB ABO GROUPING 2021-04-12 13:12:00 Thom Peña [facility] RHO (D) IMMUNE GLOBULIN 2021-04-12 13:12:00 Nasreen Salvador [facility] HB ABO GROUPING 2021-04-12 13:12:00 Thom Peña [facility] RHO (D) IMMUNE GLOBULIN 2021-04-12 13:12:00 Nasreen Salvador [facility] COVID-19 (ID NOW RAPID 2021-04-12 12:39:00 Armando Barnett [facility] TESTING) [facility] LAB ONLY COVID 2021-04-12 12:39:00 Armando Barnett [facility] INTERPRETATION Parkinson [facility] COVID-19 (ID NOW RAPID 2021-04-12 12:39:00 Armando Barnett [facility] TESTING) [facility] Branch LAB ONLY COVID 2021-04-12 12:39:00 Armando Barnett [facility] INTERPRETATION Parkinson [facility] POCT URINALYSIS W/O 2021-04-10 19:47:00 AntonioChloén [facility] SPECIFIC GRAVITY [facility] POCT URINALYSIS 2021-04-04 18:57:00 Marjorie Lin [facility] GARDASIL 9 (HPV 9V) 2020-08-10 13:35:02 Marjorie Lin [facility] VACCINE Medical Branch Plan of Care Planned Activity Planned Date Details Comments Source Future Scheduled 2030-01-18 DTaP,Tdap,and Td [facility] Test 00:00:00 Vaccines (5 - Td) Medical Br anch [code = DTaP,Tdap,and Td Vaccines (5 - Td)] Future Scheduled 2022-05-18 Screening for [facility] Test 00:00:00 malignant neoplasm Medical B ranch of cervix (procedure) [code = 600395774] Future Scheduled 2021-04-02 Depression screening [facility] Test 00:00:00 (procedure) [code = Medical Branch 790355596] Future Scheduled 2005 SARS-CoV-2 [facility] Test 00:00:00 (COVID-19) Vaccine Medical B licoch (1) [code = SARS-CoV-2 (COVID-19) Vaccine (1)] Encounters Start End Encounter Admission Attending Care Care Encounter Source Date/Time Date/Time Type Type Clinicians Facility Department ID 2021-05-09 2021-05-09 Outpatient R ROBINSON ALVAREZ [facility] [id number] Univers 16:00:00 16:00:00 [id number] ity [facility] 2021-05-09 2021-05-09 Outpatient R ANTONIOCHLOÉN [facility] [id number] Univers 16:00[facility] 2021-05-03 2021-05-03 Emergency X [facility] ERT [id number] Univers 01:20:00 02:48:00 [facility] 2021-05-03 2021-05-03 Emergency [facility] [id number] Univers 01:20:00 02:48:00 Zoie [facility] [id number] ity [facility] [id number] [facility] [id number] [facility] 084 Branch 2021-04-18 2021-04-18 Outpatient R ANTONIOCHLOÉN [facility] [id number] Univers 15:15:00 15:17:33 ity [facility] 2021-04-18 2021-04-18 Routine Chloé Alvarezn [facility] [id number] Univers 15:15:00 15:17:33 STAN [id number] i ty of Visit [facility] 4.2.7.2.686 [facility] [id number] [facility] 134 Branch 2021-04-18 2021-04-18 Outpatient R CHLOÉ ALVAREZN [facility] [id number] Univers 15:15:00 15:15:00 [id number] ity [facility] 2021-04-16 2021-04-16 Emergency X LANCE [facility] ERT [id number] Univers 21:04:00 22:47:00 DANIEL ity [facility] 2021-04-16 2021-04-16 Emergency Lance [facility] [id number] Univers 21:04:00 22:47:00 Danieltonny RIVERA 350.1.13.10 i ty [facility] 4.2.7.2.686 [place] [id number] [facility] 084 [place] 2021-04-12 2021-04-15 Inpatient P CRISS DUENAS [facility] ISMA 1 [id number] Univers 06:01:00 17:47:00 CRISS DUENAS [facility] 2021-04-12 2021-04-15 [facility] Tesha Pollard 1 .2.840.114 [id number] Univers 06:01:00 17:47:00 Encounter Criss Duenas 350.1.13.10 ity [facility] 4.2.7.2.[id number] [facility] 134 [place] 2021-04-12 2021-04-13 Anesthesia Shlomo Rodriguez 1.2.840.114 [id number] Univers 15:00:00 09:40:00 Event Leticia Osorio 350.1.13.10 ity [facility] 4.2.7.2.[id number] [facility] 140 Branch 2021-04-12 2021-04-12 Surgery ENID Duenas 1.2.840.114 [id number] Univers 08:00:00 09:41:00 Criss GONZALEZ 350.1.13.10 ity [facility] 4.2.7.2.[id number] [facility] 013 Branch 2021-04-10 2021-04-10 Outpatient R ROBINSON ALVAREZ [facility] [id number] Univers 13:30:00 14:12:03 ity of [facility] 2021-04-10 2021-04-10 Initial Robinson Alvarez [facility] ROD 1.2.840.114 [id number] Univers 13:30:00 14:12:03 STAN 350.1.13.10 i ty of Visit WOMEN'S 4.2.7.2.[address] [place] [facility] [id number] [address] 2021-04-04 2021-04-04 [facility] [id number] Univers 12:45:00 13:40:43 Marjorie C POLYMERIZATION HELPER 350.1.13.10 ity of Visit REGIONAL 4.2.7.2.686 Yimi as MATERNAL [phone] Med ical & CHILD [address] [place] [address] 2021-03-26 2021-03-26 Outpatient P EVERETT [facility] [id number] Univers 14:45:00 16:16:18 GER west [facility] 2020-10-02 2020-10-02 Outpatient G_Pappas [facility] [id number] [place] 03:15:00 03:15:00 0629 [facility] 2020-08-10 2020-08-10 Nurse Nurse, Steve [facility] 1.2.840.114 [id number] 08:17:27 08:44:28 Visit Rmchp Exp POLYMERIZATION HELPER 350.1.13.10 Cprit Obgyn REGIONAL 4.2.7.2.686 MATERNAL [phone] & CHILD [address] [place] [address] 2020-08-10 2020-08-10 Outpatient R RILEY [facility] [id number] Univers 08:15:00 08:44:28 MARJORIE west o f [facility] 2020-06-26 2020-06-26 Patient Damion [facility] 1.2.840.114 [id number] 00:00:00 00:00:00 Outreach Deepak PRIMARY 350.1.13.10 [facility] 4.2.7.2.686 PAVILLION [id number] 2020-05-29 2020-05-29 [facility]phone [facility] 1.2.840.114 [id number] 00:00:00 00:00:00 Marjorie Trinidad POLYMERIZATION HELPER 350.1.13.10 REGIONAL 4.2.7.2.686 MATERNAL [phone] & CHILD [address] [place] [address] 2020-05-17 2020-05-17 Office Riley [facility] [id number] [id number] 15:34:05 16:23:43 Visit Marjorie Trinidad POLYMERIZATION HELPER 350.1.13.10 [facility] 4.2.7.2.686 MATERNAL [id number] & CHILD 107 [facility] 2017-05-14 2017-05-14 Emergency [facility] [id number] 3 [place] 12:33:15 12:33:15 Health Results Test Description Test Time Test Comments Results Result Comments Source BASIC METABOLIC PANEL (NA, K, CL, CO2, GLUCOSE, BUN, 2021-04 03:40:22 CREATININE, CA) Test Item Value Reference Range Interpretation Comme nts NA (test code = 8572204767) 133 mmol/L 135-145 L K (test code = 1896506620) 4.6 mmol/L 3.5-5.0 CL (test code = 0812832256) 102 mmol/L 98-108 CO2 TOTAL (test code = 1394787504) 28 mmol/L 23-31 AGAP (test code = 5914074137) 2-16 BUN (test code = 8668772889) 10 mg/dL 7-23 GLUCOSE (test code = 0968188443) 106 mg/dL 70-110 CREATININE (test code = 0.46 mg/dL 0.50-1.04 L 8674874918) CALCIUM (test code = 9406669268) 8.9 mg/dL 8.6-10.6 eGFR (test code = 0081157776) mL/min/1.73m2 ОЛЕГ (test code = ОЛЕГ) Association of Glomerular Filtration Rate (GFR) and Staging of Kidney Disease* + +-------- + ------+| GFR (mL/min/1.73 m2) ?| With Kidney Damage ?| ?Without Kidney Damage+ +-- + +| ?>90 ?| ?Stage one ?| ? Normal ?+ +------- + -------+| ?60-89 ?| ?Stage two ?| ? Decreased GFR ? + +-------- + ------+| ?30-59 ?| ?Stage three ?| ? Stage three ? + +-------- + ------+| ?15-29 ?| ?Stage four ? | ? Stage four ?+ +------- + -------+| ?<15 (or dialysis) ? ?| ?Stage five ? | ? Stage five ?+ +------- + -------+ *Each stage assumes the associated GFR level has been in effect for at least three months. ?Stages 1 to 5, with or without kidney disease, indicate chronic kidney disease. Notes: Determination of stages one and two (with eGFR >59mL/min/1.73 m2) requires estimation of kidney damage for at least three months as defined by structural or functional abnormalities of the kidney, manifested by either:Pathological abnormalities or Markers of kidney damage (including abnormalities in the composition of the blood or urine or abnormalities in imaging tests). Lab Interpretation (test code = Abnormal 70820-9) [facility] WITH [id number] 03:28:16 Test Item Value Reference Range Interpretation Comments WBC (test code = See_Comment [Automated 2280-2) message] The sy stem which generated this result transmitted reference range : 4.30 - 11.10 10*3/?L. The reference range was not used to interpret this result as normal/abnormal . RBC (test code = See_Comment [Automated 959-8) message] The sy stem which generated this result transmitted reference range : 3.93 - 5.25 10*6/?L. The reference range was not used to interpret this result as normal/abnormal . HGB (test code = 10.6 g/dL 11.6-15.0 L 718-7) HCT (test code = 33.0 % 35.7-45.2 L 4544-3) MCV (test code = 82.9 fL 80.6-95.5 787-2) MCH (test code = 26.6 pg 25.9-32.8 785-6) MCHC (test code = 32.1 g/dL 31.6-35.1 786-4) RDW-SD (test code = 37.3 fL 39.0-49.9 L 04130-6) RDW-CV (test code = 12.3 % 12.0-15.5 788-0) PLT (test code = See_Comment [Automated 247-3) message] The sy stem which generated this result transmitted reference range : 166 - 358 10*3/ ?L. The reference r thang was not used to interpret this result as normal/abnormal . MPV (test code = 9.9 fL 9.5-12.9 60875-3) NRBC/100 WBC (test See_Comment [Automat ed code = 5409671947) message] The system which generated this result transmitted reference range : 0.0 - 10.0 /100 WBCs. The refer ence range was not u sed to interpret th is result as normal/abnormal . NRBC x10^3 (test code <0.01 See_Comment [Auto mated = 2573793762) message] The s ystem which generated this result transmitted reference range : 10*3/?L. The reference range was not used to interpret this result as normal/abnormal . GRAN MAT (NEUT) % 71.6 % (test code = 770-8) IMM GRAN % (test code 0.50 % = 2068866081) LYMPH % (test code = 16.6 % 736-9) MONO % (test code = 6.2 % 5905-5) EOS % (test code = 4.9 % 713-8) BASO % (test code = 0.2 % 706-2) GRAN MAT x10^3(ANC) 6.06 10*3/uL 1.88-7.09 (test code = 0851484228) IMM GRAN x10^3 (test 0.04 10*3/uL 0.00-0.06 code = 6584354865) LYMPH x10^3 (test code 1.40 10*3/uL 1.32-3.29 = 731-0) MONO x10^3 (test code 0.52 10*3/uL 0.33-0.92 = 742-7) EOS x10^3 (test code = 0.41 10*3/uL 0.03-0.39 H 711-2) BASO x10^3 (test code <0.03 0.01-0.07 = 704-7) Lab Interpretation Abnormal (test code = 77119-5) [id number] 17:48:13 Test Item Value Reference Range Interpretation Comments Syphilis IgG/IgM (test Non-reactive Non-reactive code = 54918-5) ОЛЕГ (test code = ОЛЕГ) Non-reactive - No serologic evidence of T. pallidum infection. Cannot exclude incubating or early syphilis. Submit a second specimen in 2-4 weeks if syphilis is clinically suspected. Equivocal - Further testing to follow. Reactive - Further testing to follow. Lab Interpretation (test Normal code = 84697-0) [facility] [place] [id number] 17:48:13 Test Item Value Reference Range Interpretation Comments Syphilis IgG/IgM (test Non-reactive Non-reactive code = 41620-1) ОЛЕГ (test code = ОЛЕГ) Non-reactive - No serologic evidence of T. pallidum infection. Cannot exclude incubating or early syphilis. Submit a second specimen in 2-4 weeks if syphilis is clinically suspected. Equivocal - Further testing to follow. Reactive - Further testing to follow. Lab Interpretation (test Normal code = 74900-6) [facility] [id number] 11:01:37 Test Item Value Reference Range Interpretation Comments WBC (test code = See_Comment [Automated 6690-2) message] The sy stem which generated this result transmitted reference range : 4.30 - 11.10 10*3/?L. The reference range was not used to interpret this result as normal/abnormal . RBC (test code = See_Comment L [Automated 789-8) message] The sy stem which generated this result transmitted reference range : 3.93 - 5.25 10*6/?L. The reference range was not used to interpret this result as normal/abnormal . HGB (test code = 10.1 g/dL 11.6-15.0 L 718-7) HCT (test code = 31.8 % 35.7-45.2 L 4544-3) MCV (test code = 82.8 fL 80.6-95.5 787-2) MCH (test code = 26.3 pg 25.9-32.8 785-6) MCHC (test code = 31.8 g/dL 31.6-35.1 786-4) RDW-SD (test code = 37.3 fL 39.0-49.9 L 12681-6) RDW-CV (test code = 12.3 % 12.0-15.5 788-0) PLT (test code = See_Comment [Automated 777-3) message] The sy stem which generated this result transmitted reference range : 166 - 358 10*3/ ?L. The reference r thang was not used to interpret this result as normal/abnormal . MPV (test code = 10.5 fL 9.5-12.9 53995-4) NRBC/100 WBC (test See_Comment [Automat ed code = 0102283840) message] The system which generated this result transmitted reference range : 0.0 - 10.0 /100 WBCs. The refer ence range was not u sed to interpret th is result as normal/abnormal . NRBC x10^3 (test code <0.01 See_Comment [Auto mated = 3396368302) message] The s ystem which generated this result transmitted reference range : 10*3/?L. The reference range was not used to interpret this result as normal/abnormal . GRAN MAT (NEUT) % 82.0 % (test code = 770-8) IMM GRAN % (test code 0.40 % = 2863442594) LYMPH % (test code = 10.5 % 736-9) MONO % (test code = 6.3 % 5905-5) EOS % (test code = 0.7 % 713-8) BASO % (test code = 0.1 % 706-2) GRAN MAT x10^3(ANC) 6.81 10*3/uL 1.88-7.09 (test code = 6455393308) IMM GRAN x10^3 (test 0.03 10*3/uL 0.00-0.06 code = 3788326010) LYMPH x10^3 (test code 0.87 10*3/uL 1.32-3.29 L = 731-0) MONO x10^3 (test code 0.52 10*3/uL 0.33-0.92 = 742-7) EOS x10^3 (test code = 0.06 10*3/uL 0.03-0.39 711-2) BASO x10^3 (test code <0.03 0.01-0.07 = 704-7) Lab Interpretation Abnormal (test code = 25926-7) [facility] with [id number] 11:01:37 Test Item Value Reference Range Interpretation Comments WBC (test code = See_Comment [Automated 6690-2) message] The sy stem which generated this result transmitted reference range : 4.30 - 11.10 10*3/?L. The reference range was not used to interpret this result as normal/abnormal . RBC (test code = See_Comment L [Automated 789-8) message] The sy stem which generated this result transmitted reference range : 3.93 - 5.25 10*6/?L. The reference range was not used to interpret this result as normal/abnormal . HGB (test code = 10.1 g/dL 11.6-15.0 L 718-7) HCT (test code = 31.8 % 35.7-45.2 L 4544-3) MCV (test code = 82.8 fL 80.6-95.5 787-2) MCH (test code = 26.3 pg 25.9-32.8 785-6) MCHC (test code = 31.8 g/dL 31.6-35.1 786-4) RDW-SD (test code = 37.3 fL 39.0-49.9 L 71369-0) RDW-CV (test code = 12.3 % 12.0-15.5 788-0) PLT (test code = See_Comment [Automated 777-3) message] The sy stem which generated this result transmitted reference range : 166 - 358 10*3/ ?L. The reference r thang was not used to interpret this result as normal/abnormal . MPV (test code = 10.5 fL 9.5-12.9 71683-6) NRBC/100 WBC (test See_Comment [Automat ed code = 6090172651) message] The system which generated this result transmitted reference range : 0.0 - 10.0 /100 WBCs. The refer ence range was not u sed to interpret th is result as normal/abnormal . NRBC x10^3 (test code <0.01 See_Comment [Auto mated = 8998215759) message] The s ystem which generated this result transmitted reference range : 10*3/?L. The reference range was not used to interpret this result as normal/abnormal . GRAN MAT (NEUT) % 82.0 % (test code = 770-8) IMM GRAN % (test code 0.40 % = 4009847493) LYMPH % (test code = 10.5 % 736-9) MONO % (test code = 6.3 % 5905-5) EOS % (test code = 0.7 % 713-8) BASO % (test code = 0.1 % 706-2) GRAN MAT x10^3(ANC) 6.81 10*3/uL 1.88-7.09 (test code = 6138478198) IMM GRAN x10^3 (test 0.03 10*3/uL 0.00-0.06 code = 4936312473) LYMPH x10^3 (test code 0.87 10*3/uL 1.32-3.29 L = 731-0) MONO x10^3 (test code 0.52 10*3/uL 0.33-0.92 = 742-7) EOS x10^3 (test code = 0.06 10*3/uL 0.03-0.39 711-2) BASO x10^3 (test code <0.03 0.01-0.07 = 704-7) Lab Interpretation Abnormal (test code = 34365-4) [facility] (D) IMMUNE [id number] 23:57:41 Test Item Value Reference Range Interpretation Comments RHIG CANDIDATE? No- see comment Patient i s not a (test code = candidate for R hIg- 5055) Patient is Rh Positive.Perfor med at [facility] Laboratory Services - [facility] Blood [address] [place] [address] Free: [phone] A No. [id number] [facility] (D) IMMUNE [id number] 23:57:41 Test Item Value Reference Range Interpretation Comments RHIG CANDIDATE? No- see comment Patient i s not a (test code = candidate for R hIg- 5055) Patient is Rh Positive.Perfor med at [facility] Laboratory Services - [facility] Blood [address] [place] [id number] Free: [phone] A No. [id number] [facility] [id number] 20:14:30 Test Item Value Reference Range Interpretation Comments BASE EXCESS, CORD (test mEq/L code = 0157742334) AC PH, CORD (BEAKER) 7.18-7.38 (test code = 4177731411) PC02, CORD (test code = See_Comment [Au tomated message] 8553355726) The system Rog[employer] h generated this result transmitted ref erence range: 32 - 66 mmHg. The reference r thang was not used to interpret this result as normal/abnor mal. PO2, CORD (test code = See_Comment H [Aut omated message] 5356248229) The system [employer] h generated this result transmitted ref erence range: 10 - 30 mmHg. The reference r thang was not used to interpret this result as normal/abnor mal. BICARBONATE, CORD (test See_Comment [Au tomated message] code = 4786650454) The syste m which generated this result transmitted ref erence range: 17 - 27 mEq/L. The reference r thang was not used to interpret this result as normal/abnor mal. Lab Interpretation (test Abnormal code = 85339-4) [facility] [id number] 20:14:30 Test Item Value Reference Range Interpretation Comments BASE EXCESS, CORD (test mEq/L code = 5947575942) AC PH, CORD (BEAKER) 7.18-7.38 (test code = 8308270405) PC02, CORD (test code = See_Comment [Au tomated message] 3601721053) The system Spre[employer] h generated this result transmitted ref erence range: 32 - 66 mmHg. The reference r thang was not used to interpret this result as normal/abnor mal. PO2, CORD (test code = See_Comment H [Aut omated message] 5800445300) The system Rog[employer] h generated this result transmitted ref erence range: 10 - 30 mmHg. The reference r thang was not used to interpret this result as normal/abnor mal. BICARBONATE, CORD (test See_Comment [Au tomated message] code = 2425183174) The syste m which generated this result transmitted ref erence range: 17 - 27 mEq/L. The reference r thnag was not used to interpret this result as normal/abnor mal. Lab Interpretation (test Abnormal code = 98221-5) [facility] B Surface [id number] 15:48:59 Test Item Value Reference Range Interpretation Comments HBsAg Semi-Quantitative (test code = Negative Negative 5195-3) [facility] B Surface [id number] 15:48:59 Test Item Value Reference Range Interpretation Comments HBsAg Semi-Quantitative (test code = Negative Negative 5195-3) [facility] and Screen - ONCE [id number] 15:15:32 Test Item Value Reference Range Interpretation Comments ABO & RH (test code O POSITIVE Performe d at [facility] = 20) Laboratory [facility] Blood Bank[address] [place] [address] s [id number] Free: [phone] A No. [id number] IAT (test code = Negative Performed a t [facility] 1185) Laboratory [facility] Blood [address] s [address]Xrat Free: [phone] A No. [id number] [facility] and Screen - ONCE [id number] 15:15:32 Test Item Value Reference Range Interpretation Comments ABO & RH (test code O POSITIVE Performe d at [facility] = 20) Laboratory [facility] Blood [address] s [id number] Free: [phone] A No. [id number] IAT (test code = Negative Performed a t [facility] 1185) Laboratory [facility] Blood [facility] [place] [address] s [id number] Free: [phone] A No. [id number] [facility] with [id number] 14:51:49 Test Item Value Reference Range Interpretation Comments WBC (test code = See_Comment [Automated 2330-2) message] The sy stem which generated this result transmitted reference range : 4.30 - 11.10 10*3/?L. The reference range was not used to interpret this result as normal/abnormal . RBC (test code = See_Comment L [Automated 789-8) message] The sy stem which generated this result transmitted reference range : 3.93 - 5.25 10*6/?L. The reference range was not used to interpret this result as normal/abnormal . HGB (test code = 10.0 g/dL 11.6-15.0 L 718-7) HCT (test code = 31.3 % 35.7-45.2 L 4544-3) MCV (test code = 82.8 fL 80.6-95.5 787-2) MCH (test code = 26.5 pg 25.9-32.8 785-6) MCHC (test code = 31.9 g/dL 31.6-35.1 786-4) RDW-SD (test code = 37.4 fL 39.0-49.9 L 16218-4) RDW-CV (test code = 12.4 % 12.0-15.5 788-0) PLT (test code = See_Comment [Automated 777-3) message] The sy stem which generated this result transmitted reference range : 166 - 358 10*3/ ?L. The reference r thang was not used to interpret this result as normal/abnormal . MPV (test code = 11.0 fL 9.5-12.9 43146-4) NRBC/100 WBC (test See_Comment [Automat ed code = 0601271525) message] The system which generated this result transmitted reference range : 0.0 - 10.0 /100 WBCs. The refer ence range was not u sed to interpret th is result as normal/abnormal . NRBC x10^3 (test code <0.01 See_Comment [Auto mated = 9467443346) message] The s ystem which generated this result transmitted reference range : 10*3/?L. The reference range was not used to interpret this result as normal/abnormal . GRAN MAT (NEUT) % 65.1 % (test code = 770-8) IMM GRAN % (test code 0.30 % = 4496047332) LYMPH % (test code = 24.9 % 736-9) MONO % (test code = 7.8 % 5905-5) EOS % (test code = 1.5 % 713-8) BASO % (test code = 0.4 % 706-2) GRAN MAT x10^3(ANC) 5.11 10*3/uL 1.88-7.09 (test code = 2551389237) IMM GRAN x10^3 (test <0.03 0.00-0.06 code = 6501402100) LYMPH x10^3 (test code 1.95 10*3/uL 1.32-3.29 = 731-0) MONO x10^3 (test code 0.61 10*3/uL 0.33-0.92 = 742-7) EOS x10^3 (test code = 0.12 10*3/uL 0.03-0.39 711-2) BASO x10^3 (test code 0.03 10*3/uL 0.01-0.07 = 704-7) Lab Interpretation Abnormal (test code = 03796-0) [facility] with [id number] 14:51:49 Test Item Value Reference Range Interpretation Comments WBC (test code = See_Comment [Automated 6690-2) message] The sy stem which generated this result transmitted reference range : 4.30 - 11.10 10*3/?L. The reference range was not used to interpret this result as normal/abnormal . RBC (test code = See_Comment L [Automated 639-8) message] The sy stem which generated this result transmitted reference range : 3.93 - 5.25 10*6/?L. The reference range was not used to interpret this result as normal/abnormal . HGB (test code = 10.0 g/dL 11.6-15.0 L 718-7) HCT (test code = 31.3 % 35.7-45.2 L 4544-3) MCV (test code = 82.8 fL 80.6-95.5 787-2) MCH (test code = 26.5 pg 25.9-32.8 785-6) MCHC (test code = 31.9 g/dL 31.6-35.1 786-4) RDW-SD (test code = 37.4 fL 39.0-49.9 L 70550-8) RDW-CV (test code = 12.4 % 12.0-15.5 788-0) PLT (test code = See_Comment [Automated 777-3) message] The sy stem which generated this result transmitted reference range : 166 - 358 10*3/ ?L. The reference r thang was not used to interpret this result as normal/abnormal . MPV (test code = 11.0 fL 9.5-12.9 97269-5) NRBC/100 WBC (test See_Comment [Automat ed code = 7435422236) message] The system which generated this result transmitted reference range : 0.0 - 10.0 /100 WBCs. The refer ence range was not u sed to interpret th is result as normal/abnormal . NRBC x10^3 (test code <0.01 See_Comment [Auto mated = 6061716160) message] The s ystem which generated this result transmitted reference range : 10*3/?L. The reference range was not used to interpret this result as normal/abnormal . GRAN MAT (NEUT) % 65.1 % (test code = 770-8) IMM GRAN % (test code 0.30 % = 9991351687) LYMPH % (test code = 24.9 % 736-9) MONO % (test code = 7.8 % 5905-5) EOS % (test code = 1.5 % 713-8) BASO % (test code = 0.4 % 706-2) GRAN MAT x10^3(ANC) 5.11 10*3/uL 1.88-7.09 (test code = 7603245452) IMM GRAN x10^3 (test <0.03 0.00-0.06 code = 1032965361) LYMPH x10^3 (test code 1.95 10*3/uL 1.32-3.29 = 731-0) MONO x10^3 (test code 0.61 10*3/uL 0.33-0.92 = 742-7) EOS x10^3 (test code = 0.12 10*3/uL 0.03-0.39 711-2) BASO x10^3 (test code 0.03 10*3/uL 0.01-0.07 = 704-7) Lab Interpretation Abnormal (test code = 62143-6) [facility] URINALYSIS W/O SPECIFIC [id number] 19:47:00 Test Item Value Reference Range Interpretation Comments POCT PH U (test code = 3254) N/A 5-8 POCT U LEUK EST (test code = N/A Negative - Negative 3263) POCT U NIT (test code = 3262) N/A Negative - Negative POCT U PROT (test code = 3259) Negative Negative - Negative POCT U GLU (test code = 3256) Negative Negative - Negative POCT U KETONE (test code = 3258) N/A Negative - Negative POCT U BLD (test code = 3257) N/A Negative - Negative [facility]CIFIC [id number] 18:57:00 Test Item Value Reference Range Interpretation Comments POCT U SP GRAV (test code = 3255) . 1.005-1.025 POCT PH U (test code = 3254) . 5-8 POCT U LEUK EST (test code = 3263) . Negative - Negative POCT U NIT (test code = 3262) . Negative - Negative POCT U PROT (test code = 3259) Trace Negative - Negative POCT U GLU (test code = 3256) Neg Negative - Negative POCT U KETONE (test code = 3258) . Negative - Negative POCT U UROBILI (test code = 3260) . 0.2-1 POCT U BILI (test code = 3261) . Negative - Negative POCT U BLD (test code = 3257) . Negative - Negative POCT U COLOR (test code = 3266) . POCT U APPEAR (test code = 3267) [facility]"
[2021-05-03] MEDS ORDERED: MORPHINE 4 MG/ML SYR ONE (03:44)
[2021-05-03] MEDS ORDERED: ONDANSETRON 4 MG/2 ML VIAL ONE (03:45)
[2021-05-03 04:09] LABS: Hematocrit 37.9 % (36.0-45.0); Lymphocytes % 40.2 % (15.3-44.8); MPV 7.8 fL (7.6-11.3); RBC Red Blood Cell Count 4.63 M/uL (3.86-4.86)
[2021-05-03 04:27] LABS: ALT/SGPT 28 U/L (12-78); AST/SGOT 18 U/L (15-37); Albumin 3.2 g/dL (3.4-5.0); Alkaline Phosphatase 123 U/L (45-117); BUN Blood Urea Nitrogen 9 mg/dL (7-18); Bicarbonate 27 mmol/L (21-32); Bilirubin Direct < 0.1 mg/dL (0-0.2); Bilirubin Total 0.2 mg/dL (0.2-1.0); Glucose Level 74 mg/dL (74-106); Lipase 109 U/L (73-393); Potassium 3.4 mmol/L (3.5-5.1); Protein, Total 7.6 g/dL (6.4-8.2); Sodium Level 142 mmol/L (136-145)
[2021-05-03 04:41] LABS: Urine Blood 1+ (Negative); Urine Glucose Negative (Negative); Urine Protein Negative (Negative); Urine Specific Gravity 1.015 (1.005-1.030)
[2021-05-03] MEDS ORDERED: POTASSIUM CL SA 10 MEQ TAB PO ONE (04:45)
--- NOTE | 2021-05-03 05:06 | EDPHYS ---
Physician Documentation [facility] Name: Margie Coley Age: 30 yrs Sex: Female : 1990 Arrival Date: 05/03/2021 Time: 03:15 Bed 20 Private MD: ED Physician Chris Villalba HPI: 05/03 03:38 This 30 yrs old Female presents to ER via Ambulatory with complaints of Fall pkl Injury. 03:38 The patient presents with abdominal pain in the lower abdomen. Onset: The pkl symptoms/episode began/occurred yesterday. The symptoms do not radiate. Associated signs and symptoms: none. Patient had C- section 2 weeks ago. Fell yesterday in the bath tub and now complained lower abdominal pain. 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 - Recent vc1 Historical: - Allergies: 03:25 No Known Allergies; vc1 - Home Meds: 03:25 ibuprofen 600 mg Oral tab 1 tab every 6 hours [Active]; gabapentin 300 mg oral cap 1 vc1 cap 3 times per day [Active]; ferrous sulfate 325 mg (65 mg iron) Oral TbEC twice a day [Active]; celecoxib 200 mg Oral cap 1 cap 2 times per day [Active]; baclofen 10 mg Oral tab 1 tab 3 times per day [Active]; trazodone 50 mg Oral tab 1 tab once daily [Active]; metoclopramide HCl 10 mg Oral tab 1 tab 4 times per day [Active]; docusate calcium 240 mg Oral cap 1 cap once daily [Active]; - PMHx: 03:25 Anemia; Anxiety; back problems; Bipolar disorder; Depression; Substance Abuse; vc1 - PSHx: 03:25 section; vc1 - Immunization history: Last tetanus immunization: - up to date. - Social history:: Smoking status: Patient/guardian denies using tobacco, the patient reports quitting approximately 2 years ago. ROS: 03:38 Eyes: Negative for injury, pain, redness, and discharge, ENT: Negative for injury, pkl pain, and discharge, Neck: Negative for injury, pain, and swelling, Cardiovascular: Negative for chest pain, palpitations, and edema, Respiratory: Negative for shortness of breath, cough, wheezing, and pleuritic chest pain. 03:38 Abdomen/GI: Positive for abdominal pain, of the right lower quadrant and left lower quadrant. 03:38 Back: Negative for acute changes. 03:38 : Negative for urinary symptoms. 03:38 MS/extremity: Negative for acute changes. 03:38 Skin: Negative for rash. 03:38 Neuro: Negative for altered mental status, loss of consciousness. Exam: 03:38 Head/Face: Normocephalic, atraumatic. Eyes: Pupils equal round and reactive to light, pkl extra-ocular motions intact. Lids and lashes normal. Conjunctiva and sclera are non-icteric and not injected. Cornea within normal limits. Periorbital areas with no swelling, redness, or edema. ENT: Nares patent. No nasal discharge, no septal abnormalities noted. Tympanic membranes are normal and external auditory canals are clear. Oropharynx with no redness, swelling, or masses, exudates, or evidence of obstruction, uvula midline. Mucous membranes moist. Neck: Trachea midline, no thyromegaly or masses palpated, and no cervical lymphadenopathy. Supple, full range of motion without nuchal rigidity, or vertebral point tenderness. No Meningismus. Chest/axilla: Normal chest wall appearance and motion. Nontender with no deformity. No lesions are appreciated. Cardiovascular: Regular rate and rhythm with a normal S1 and S2. No gallops, murmurs, or rubs. Normal PMI, no JVD. No pulse deficits. Respiratory: Lungs have equal breath sounds bilaterally, clear to auscultation and percussion. No rales, rhonchi or wheezes noted. No increased work of breathing, no retractions or nasal flaring. 03:38 Abdomen/GI: Inspection: mild drainage noted from incision woumd, Palpation: soft, mild abdominal tenderness, in the right lower quadrant and left lower quadrant. 03:38 Back: Exam negative for acute changes. 03:38 : Exam negative for acute changes. 03:38 Musculoskeletal/extremity: Exam is negative for acute changes. 03:38 Skin: Exam negative for rash. 03:38 Neuro: Orientation: is normal, Mentation: is normal, Cranial nerves: grossly normal, Motor: is normal. Vital Signs: 03:20 BP 140 / 96; Pulse 64; Resp 18; Temp 97.8; Pulse Ox 100% on R/A; Weight 88.45 kg; vc1 Height 5 ft. 6 in. (167.64 cm); Pain 8/10; 03:20 Body Mass Index 31.47 (88.45 kg, 167.64 cm) vc1 Elder Coma Score: 03:23 Eye Response: spontaneous(4). Verbal Response: oriented(5). Motor Response: obeys vc1 commands(6). Total: 15. Trauma Score (Adult): 03:23 Eye Response: spontaneous(1); Verbal Response: oriented(1); Motor Response: obeys vc1 commands(2); Systolic BP: > 89 mm Hg(4); Respiratory Rate: 10 to 29 per min(4); Elder Score: 15; Trauma Score: 12 MDM: 03:28 Patient medically screened. pkl 04:50 Data reviewed: vital signs, nurses notes, lab test result(s), radiologic studies, CT pkl scan. ED course: . 05:01 ED course: Discussed lab and imaging studies with patient. Advised to take one Tylenol pkl and one Advil together 2 or 3 times daily for pain. 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 Return if necessary. Patient understood instructions. 05/03 03:37 Order name: Basic Metabolic Panel; Complete Time: 04:30 pkl 05/03 03:37 Order name: CBC with Diff; Complete Time: 04:21 pkl 05/03 03:37 Order name: Hepatic Function; Complete Time: 04:30 pkl 05/03 03:37 Order name: Lipase; Complete Time: 04:30 pkl 05/03 03:44 Order name: Wound Culture pkl 05/03 03:37 Order name: CT Abd/Pelvis - IV Contrast Only pkl 05/03 04:40 Order name: Urine Dipstick-Ancillary; Complete Time: 05:19 EDMS 05/03 05:07 Order name: Urine Culture 2 05/03 05:07 Order name: Urine Microscopic Only; Complete Time: 05:35 mw2 05/03 03:37 Order name: IV Saline Lock; Complete Time: 03:53 pkl 05/03 03:37 Order name: Labs collected and sent; Complete Time: 03:53 pkl 05/03 03:37 Order name: Urine Dipstick-Ancillary (obtain specimen); Complete Time: 04:45 pkl Administered Medications: 03:53 Drug: morphine 4 mg Route: IVP; Site: right antecubital; sf1 03:53 Drug: Zofran (Ondansetron) 4 mg Route: IVP; Site: right antecubital; sf1 03:56 Drug: NS 0.9% 1000 ml Route: IV; Rate: 125 ml/hr; Site: right antecubital; sf1 04:45 Drug: K-Dur (potassium chloride) 20 mEq Route: PO; sf1 05:46 Drug: Cipro (ciprofloxacin) 500 mg Route: PO; sf1 Disposition Summary: 05/03/21 05:06 Discharge Ordered Location: Home pkl Problem: new pkl Symptoms: have improved pkl Condition: Stable pkl Diagnosis - Abdominal pain. S/P C - section. S/P Fall pkl - Abdominal pain. S/P C - section. S/P Fall. Urinary tract infection pkl Followup: pkl - With: Private Physician - When: 2 - 3 days - Reason: Re-evaluation by your physician Discharge Instructions: - Discharge Summary Sheet pkl Forms: - Medication Reconciliation Form pkl - Thank You Letter pkl - Antibiotic Education pkl - Prescription Opioid Use pkl Prescriptions: - Cipro 500 mg Oral Tablet - take 1 tablet by ORAL route every 12 hours for 5 days; 10 tablet; Refills: 0, pkl Product Selection Permitted Signatures: Dispatcher [employer] EDMS Chris Villalba MD MD pkl Trinity Epps RN RN vc1 Julee Reyes RN RN sf1 Corrections: (The following items were deleted from the chart) 03:38 03:38 CREATININE, SERUM+C.LAB.BRZ ordered. EDMS EDMS
--- NOTE | 2021-05-03 05:06 | ER ---
Nurse's Notes [facility] Name: Margie Coley Age: 30 yrs Sex: Female : 1990 Arrival Date: 05/03/2021 Time: 03:15 Bed 20 Private MD: Diagnosis: Abdominal pain. S/P C - section. S/P Fall;Abdominal pain. S/P C - section. S/P Fall. Urinary tract infection Presentation: 05/03 03:20 Chief complaint: Patient states: "I got a on the 7th. I fell yesterday and I vc1 guess it tore a little bit of the right side and I can see the clear stitch. I feel like my uterus dropped and it is painful on the inside. I am hurting on the inside really bad.". Coronavirus screen: Vaccine status: Patient reports receiving the 2nd dose of the covid vaccine. unknown which one. Ebola Screen: Patient negative for fever greater than or equal to 101.5 degrees Fahrenheit, and additional compatible Ebola Virus Disease symptoms Patient denies exposure to infectious person. Patient denies travel to an Ebola-affected area in the 21 days before illness onset. Initial Sepsis Screen: Does the patient meet any 2 criteria? Yes Does the patient have a suspected source of infection? No. Patient's initial sepsis screen is negative. Risk Assessment: Do you want to hurt yourself or someone else? Patient reports no desire to harm self or others. Onset of symptoms was May 02, 2021. 03:20 Method Of Arrival: Ambulatory vc1 03:20 Acuity: SONIA 3 vc1 03:23 Care prior to arrival: None. Mechanism of Injury: Fall " I slipped backwards in the 1 shower. I didn't hit my head. It is just my stomach that is hurting.". Trauma event details: Injury occurred in the [facility], Injury occurred: at home. Injury occurred: May 02, 2021. 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 - Recent vc1 Historical: - Allergies: 03:25 No Known Allergies; vc1 - Home Meds: 03:25 ibuprofen 600 mg Oral tab 1 tab every 6 hours [Active]; gabapentin 300 mg oral cap 1 vc1 cap 3 times per day [Active]; ferrous sulfate 325 mg (65 mg iron) Oral TbEC twice a day [Active]; celecoxib 200 mg Oral cap 1 cap 2 times per day [Active]; baclofen 10 mg Oral tab 1 tab 3 times per day [Active]; trazodone 50 mg Oral tab 1 tab once daily [Active]; metoclopramide HCl 10 mg Oral tab 1 tab 4 times per day [Active]; docusate calcium 240 mg Oral cap 1 cap once daily [Active]; - PMHx: 03:25 Anemia; Anxiety; back problems; Bipolar disorder; Depression; Substance Abuse; vc1 - PSHx: 03:25 section; vc1 - Immunization history: Last tetanus immunization: - up to date. - Social history:: Smoking status: Patient/guardian denies using tobacco, the patient reports quitting approximately 2 years ago. Screenin:23 Abuse screen: Denies threats or abuse. Denies injuries from another. Tuberculosis vc1 screening: No symptoms or risk factors identified. Primary Survey: 03:23 NO uncontrolled hemorrhage observed. A: The patient is alert. Airway: patent. vc1 Breathing/Chest: Respiratory pattern: regular. Circulation: Skin color: pink. Disability Alert. Exposure/Environment: There is no evidence of uncontrolled external bleeding. Reassessment Airway Airway Patent Breathing/Chest Respiratory pattern Regular Circulation Color [place] Disability Alert. Assessment: 03:23 General: Appears uncomfortable, Behavior is calm, cooperative, appropriate for age, vc1 quiet. Pain: Complains of pain in suprapubic area, right lower quadrant and left lower quadrant Pain currently is 8 out of 10 on a pain scale. Quality of pain is described as sharp. Vital Signs: 03:20 BP 140 / 96; Pulse 64; Resp 18; Temp 97.8; Pulse Ox 100% on R/A; Weight 88.45 kg; vc1 Height 5 ft. 6 in. (167.64 cm); Pain 8/10; 03:20 Body Mass Index 31.47 (88.45 kg, 167.64 cm) vc1 Oxford Coma Score: 03:23 Eye Response: spontaneous(4). Verbal Response: oriented(5). Motor Response: obeys vc1 commands(6). Total: 15. Trauma Score (Adult): 03:23 Eye Response: spontaneous(1); Verbal Response: oriented(1); Motor Response: obeys vc1 commands(2); Systolic BP: > 89 mm Hg(4); Respiratory Rate: 10 to 29 per min(4); Oxford Score: 15; Trauma Score: 12 ED Course: 03:15 Patient arrived in ED. es 03:23 Triage completed. vc1 03:23 Patient has correct armband on for positive identification. vc1 03:25 Arm band placed on right wrist. Patient placed in an exam room. vc1 03:28 Chris Villalba MD is Attending Physician. pkl 03:30 Julee Reyes RN is Primary Nurse. sf1 03:52 Wound Culture Sent. sf1 03:53 Basic Metabolic Panel Sent. sf1 03:53 CBC with Diff Sent. sf1 03:53 Hepatic Function Sent. sf1 03:53 Lipase Sent. sf1 03:57 Inserted saline lock: 20 gauge in right antecubital area, using aseptic technique. sf1 Blood collected. 04:17 CT Abd/Pelvis - IV Contrast Only In Process Unspecified. EDMS Administered Medications: 03:53 Drug: morphine 4 mg Route: IVP; Site: right antecubital; sf1 03:53 Drug: Zofran (Ondansetron) 4 mg Route: IVP; Site: right antecubital; sf1 03:56 Drug: NS 0.9% 1000 ml Route: IV; Rate: 125 ml/hr; Site: right antecubital; sf1 04:45 Drug: K-Dur (potassium chloride) 20 mEq Route: PO; sf1 05:46 Drug: Cipro (ciprofloxacin) 500 mg Route: PO; sf1 Intake: 03:23 PO: 0ml; Total: 0ml. vc1 Output: 03:23 Urine: 0ml; Total: 0ml. vc1 Outcome: 05:06 Discharge ordered by . pkl 05:46 Patient left the ED. sf1 Signatures: Dispatcher [employer] EDMS Chris Villalba MD MD pkCarla Pathak Vanessa, RN RN vc1 Julee Reyes RN RN sf1
[2021-05-03 05:31] LABS: Urine Bacteria <20 /HPF (<20)
[2021-05-03 05:32] LABS: Urine Mucus 1+ /HPF (NONE SEEN)
[2021-05-03] MEDS ORDERED: CIPROFLOXACIN HCL 500 MG TAB ONE (05:40)
[2021-05-03 06:20] VITALS: BP 140/96; TEMP 97.8; O2SAT 100
--- NOTE | 2021-05-03 15:51 | RAD REPORT ---
EXAM DESCRIPTION: CT Abdomen and Pelvis With Intravenous Contrast CLINICAL HISTORY: The patient is 30 years old and is Female; ABD PAIN TECHNIQUE: Axial computed tomography images of the abdomen and pelvis with intravenous contrast. S agittal and coronal reformatted images were created and reviewed. This CT exam was performed using one or more of the following dose reduction techniques: automated exposure control, adjustment of t he mA and/or kV according to patient size, and/or use of iterative reconstruction technique. COMPARISON: No relevant prior studies available. FINDINGS: Lung bases: Unremarkable. No mass. No consolidation. ABDOMEN: Liver: Unremarkable. No mass. Gallbladder and bile ducts: Unremarkable. No calcified stones. No ductal dilation. Pancreas: No findings to suggest acute pancreatitis. No mass visualized. No ductal dilation. Spleen: Unremarkable. No splenomegaly. Adrenals: Unremarkable. No mass. Kidneys and ureters: Prominent ureters bilaterally without ureter stone. No findings to suggest p yelonephritis. Stomach and bowel: No bowel dilatation or obstruction. No bowel wall thickening. PELVIS: Appendix: Appendectomy. Bladder: Bladder is not well distended. No stones. Reproductive: Scarring or fat stranding in the pelvis suggestive of previous . Thickened endometrium, 2 cm. No adnexal mass visualized. ABDOMEN and PELVIS: Intraperitoneal space: No free air. No abscess or significant free fluid. Bones/joints: No acute fracture. No dislocation. Soft tissues: Scarring in the low anterior abdominal wall. No fluid collection. Vasculature: Unremarkable. No abdominal aortic aneurysm. Lymph nodes: No pathologically enlarged lymph nodes. IMPRESSION: 1. Thickened endometrium, 2 cm. 2. Scarring or fat stranding in the pelvis suggestive of previous . Electronically signed by: Monica Koroma MD 05/03/2021 4:32 AM HUMAN SERVICES INSTRUCTOR Due to temporary technical issues with the PACS/Fluency reporting system, reports are being signed by the in house radiologists without review as a courtesy to insure prompt reporting. The interpreting radiologist is fully responsible for the content of the report.
== END 2021-05-03 05:46 | disposition home or self-care (01) ==
LOC: ER 03:11
DX: N39.0 Urinary tract infection, site not specified (principal); W18.2XXA Fall in (into) shower or empty bathtub, initial encounter; Z98.890 Other specified postprocedural states; F31.9 Bipolar disorder, unspecified
CPT/HCPCS: 87088; 87070; 85025; 87086; 80048; 36415; 87205; 82565; 80076; 83690; 74177; 96375; 96374; 99284; Q9967; J2405; 81003; 81015

== ENCOUNTER 2021-08-08 21:29 | Emergency (ER) | payer OTHER ==
--- OUTSIDE RECORDS SUMMARY | 2021-08-08 21:33 | XMS REPORT | Continuity of Care Document ---
:[address] [facility] [place] t Address [facility] [place] [address] Care Team Providers Name Role Phone Vivi James Primary Care Physician Antonio SANTAMARIA Attending Clinician G_Pappas Attending Clinician Unavailable Nurse, Rmchp Exp Cprit Obgyn Attending Clinician Unavailabl e Vivi James Attending Clinician Ruddy Bruno DO Attending Clinician G_Papmere Admitting Clinician Unavailable Payers Payer Name Policy Type Policy Effective Date Expiration Source Number Date MEDICAREMEDICARE PART [id number] 2019 Un iversity of A & 00:00:00 [facility] [id number] 2019- [facility] [id number] RUBEN LOYD [id number] [facility] [id number] 2018 [facility] [place] [facility] ity of COMM PLAN - MANAGED 00:00:00 [place] [facility] MEDICAIDUHC [place] STAR [id number] 8-PresentMedicaid Advance Directives Directive Decision Effective Termination Comments Source Date Date Healthcare Agents on N/A Univ ersity FileNameRelationshipHealthcare of [place] Agent Medical RelationshipCommunicationMelbourne Regional Medical Center CoronaMotherHealth Care [phone] (Mobile) Problems Condition Condition Condition Status Onset Resolution Last Treating Co mments Source Name Details Category Date Date Treatment Clinician Date S/P S/P Disease Active Univers 1-11 ity of 00:00: [place] 00 [facility] Lab test Lab test Disease Active 2020-04 Unive rs positive positive 2-27 ity of for for 00:00: [place] detection detection 00 Medi luis of of Branch COVID-19 COVID-19 virus virus Rubella Rubella Disease Active 2020-04 Overview: Univ ers non-immune non-immune 2-17 Formattin ity of status, status, 00:00: g of this [place] antepartum antepartum 00 note Me dical might be Branch different from the original. Address pp Multiparit Multiparit Disease Active 2020-04 U nivers y y 2-16 ity of 00:00: [place] 00 [facility] History of History of Disease Active 2020-04 Overview : Univers 2-16 Formattin ity of section section 00:00: g of this [place] 00 note Medical might be Branch different from the original. x3 Other Other Disease Active Univers general general 2-11 ity of counseling counseling [place] and advice and advice 00 Me dical for for Branch contracept contracept leisa leisa management management History of History of Disease Active 2019-04 U nivers 2019 novel 2019 novel 2-17 it y of coronaviru coronaviru [place] disease s disease 00 Medi luis (COVID-19) (COVID-19) Br anch Pre-existi Pre-existi Disease Active 2019-04 U nivers ng ng 2-17 ity of essential essential 00:00[place] hypertensi hypertensi 00 Me dical on during on during Bran ch Chronic Chronic Disease Active 2019-04 Univers hypertensi hypertensi 2-17 it y of on on 00:00: [place] 00 [facility] Branch Suboxone Suboxone Disease Active 2019-04 Unive rs maintenanc maintenanc 1-05 it y of e e 00:00: [place] treatment treatment 00 Medi luis complicati complicati Br anch ng ng , [...] of History of Disease Active U nivers alcohol alcohol 6-10 ity of use use 00:00: [place] 00 Medical Branch Other Other Disease Active Univers depression depression 2-12 it y of 00:00: [place] [facility] Tobacco Tobacco Disease Active Univers use use 2-12 ity of disorder disorder 00:00: [place] 00 Medical [facility] Obesity Obesity Disease Active 2018-04 Univers (BMI (BMI 2-31 ity of 30-39.9) 30-39.9) 00:00: [place] [facility] BMI BMI Disease Active 2018-04 Univers 33.0-33.9, 33.0-33.9, 0-28 it y of adult adult 00:00: [place] 00 Medical Branch History of History of Disease Active U nivers asthma asthma 5-26 ity of 00:00: [place] 00 Medical Branch Liveborn Liveborn Disease Resolve 2019-042020-05-17 2020-05-17 Univers by infant by d 2- 00:00:00 22:23:51 ity of 00:00: [place] delivery delivery 00 Medica l Branch S/P S/P Disease Resolve 2019-042020-05-17 2020-05-17 Univers d 2- 00:00:00 22:24:12 it y of section section 00:00: [place] 00 Medical Branch Sciatic Sciatic Disease Resolve 2019-042020-05-17 2020-05-17 Univers nerve nerve d 2- 00:00:00 22:24:13 ity of pain, pain, 00:00: [place] right right 00 Medical Branch Carrier of Carrier of Disease Resolve 2019-042020-05-17 2020-05-17 Univers group B group B d 2- 00:00:00 22:22:27 ity of Streptococ Streptococ 00:00: [...] Resolve 2020-05-17 2020-05-17 Univers abnormal abnormal d 11-28 00:00:00 22:24:04 it y of findings findings 00:00: [place] on on 00 Medical microbiolo microbiolo Br anch gical gical examinatio examinatio n of urine n of urine Urinary Urinary Disease Resolve 2020-05-17 2020-05-17 Univers tract tract d 8 00:00:00 22:22:06 ity of infection infection 00:00[place] without without 00 Medical hematuria, hematuria, Br anch site site unspecifie unspecifie d d Vaginitis, Vaginitis, Disease Resolve 2020-05-17 2020-05-17 Univers vulvitis vulvitis d - 00:00:00 22:22:13 it y of and and 00:00: [place] vulvovagin vulvovagin 00 Me dical itis in itis in Branch diseases diseases classified classified elsewhere elsewhere Abnormal Abnormal Disease Resolve 2020-05-17 2020-05-17 Univers radiologic radiologic d 8 00:00:00 22:22:25 ity of findings findings 00:00: [place] on on 00 Medical diagnostic diagnostic Br anch imaging of imaging of other other urinary urinary organs organs Screening Screening Disease Resolve 2020-05-17 2020-05-17 Univers for viral for viral d 8- 00:00:00 22:24:23 ity of disease disease 00:00: [place] 00 Medical Branch Encounter Encounter Disease Resolve 2020-05-172020-05-17 Univers for for d 2-12 00:00:00 22:23:09 ity of screening screening 00:00[place] for other for other 00 [facility] viral viral Branch diseases diseases 39 weeks 39 weeks Disease Resolve 2018-042020-05-17 2020-05-17 Univers gestation gestation d 2-31 00:00:00 22:22:20 ity of of of 00:00: [place] 00 [facility] Branch Rubella Rubella Disease Resolve 2020-05-17 2020-05-17 Univers non-immune non-immune d 5-07 00:00:00 22:24:11 ity of status, status, 00:00: [place] antepartum antepartum 00 Nj dical Branch Supervisio Supervisio Disease Resolve 2020-05-17 2020-05-17 Univers n of high n of high d 5- 00:00:00 22:24:40 ity of risk risk 00:00: [place] , , 00 Me dical antepartum antepartum Br anch Multiparit Multiparit Disease Resolve 2020-05-17 2020-05-17 Univers y y d 5- 00:00:00 22:23:51 ity of 00:00: [place] 00 [facility] Branch Obesity Obesity Disease Resolve 2020-05-17 2020-05-17 Univers affecting affecting d 5- 00:00:00 22:24:01 it[place] of 00:[place] in third in third 00 Medica l trimester trimester Bran ch Previous Previous Disease Resolve 2014-0 2020-05-17 2020-05-17 Univers d 9-14 00:00:00 22:24:09 it y of delivery delivery 00:00: [place] affecting affecting 00 [facility] , , Br anch antepartum antepartum Routine Routine Disease Resolve 2019-05-18 2019-05-18 Univers d 1-22 00:00:00 19:37:57 ity of follow-up follow-up 00:00[place] [facility] Tobacco Tobacco Disease Resolve 2019-05-18 2019-05-18 Univers use in use in d 5-02 00:00:00 19:39:24 [place] of [place] Positive Positive Disease Resolve 2018-042019-04-27 2019-04-27 Univers GBS test GBS test d 2-13 00:00:00 15:52:45 it y of 00:00: [place] [...] Resolve 2018-042019-04-27 2019-04-27 Univers substance substance d 1- 00:00:00 15:52:50 ity of abuse abuse 00:00: [place] 00 Medical Branch 30 weeks 30 weeks Disease Resolve 2018-042019-04-27 2019-04-27 Univers gestation gestation d 0-29 00:00:00 15:52:59 ity of of of 00:00: [place] 00 [facility] Branch Gestationa Gestationa Disease Resolve 2018-042019-04-27 2019-04-27 Univers l l d 0-29 00:00:00 15:52:53 ity of proteinuri proteinuri 00:00: [place] a a 00 Medical [place] Elevated Elevated Disease Resolve 2018-042019-04-27 2019-04-27 Univers blood blood d 0-28 00:00:00 15:52:54 ity of pressure pressure 00:00: [place] reading reading 00 Medical without without Branch diagnosis diagnosis of of hypertensi hypertensi on on Abnormal Abnormal Disease Resolve 2018-042019-04-27 2019-04-27 Univers maternal maternal d 0-11 00:00:00 15:52:56 it y of glucose glucose 00:00: [place] tolerance, tolerance, 00 Me dical antepartum antepartum Br anch History of History of Disease Resolve 2019-04-27 2019-04-27 Univers d 5- 00:00:00 15:52:51 it y of section section 00:00: [place] 00 [facility] Vaginal Vaginal Disease Resolve 2019-04-27 2019-04-27 Univers bleeding bleeding d 5- 00:00:00 15:52:36 it y of in in 00:00: [place] 00 [facility] UTI UTI Disease Resolve 2019-04-27 2019-04-27 Univers symptoms symptoms d 3 00:00:00 15:52:39 it y of 00:00: [place] 00 Medical Branch Hypertensi Hypertensi Disease Resolve 2018-042019-02-01 2019-02-01 Univers on on d 0- 00:00:00 17:14:59 ity of affecting affecting 00:00[place] [facility] BMI BMI Disease Resolve 2017-042018-08-05 2018-08-05 Univers 32.0-32.9, 32.0-32.9, d 1-13 00:00:00 16:48:21 ity of adult adult 00:00: [place] 00 [facility] Encounter Encounter Disease Resolve 2018-02-16 2018-02-16 Univers for IUD for IUD d - 00:00:00 17:32:35 ity of insertion insertion 00:00[place] [facility] Other Other Disease Resolve 2018-02-16 2018-02-16 Univers general general d 08-29 00:00:00 17:32:29 ity of counseling counseling 00:00[place] and advice and advice 00 N[place] dical for [facility] contracept contracept leisa leisa management management Non morbid Non morbid Disease Resolve 2018-02-16 2018-02-16 Univers obesity obesity d 08-29 00:00:00 17:32:32 ity of due to due to 00:00: [place] excess excess 00 Medical calories calories Branch Tobacco Tobacco Disease Resolve 2018-02-16 2018-02-16 Univers use use d 08-29 00:00:00 18:38:07 ity of disorder disorder 00:00: [place] 00 [facility] Disease Resolve 2014-042016-08-29 2016-08-29 Univers d 0-06 00:00:00 21:17:51 ity of 00:00: [place] 00 [facility] GBBS GBBS Disease Resolve 2016-08-29 2016-08-29 Univers (group B (group B d 916 00:00:00 21:17:52 it y of beta beta 00:00: [place] hemolytic hemolytic 00 [facility] Streptococ Streptococ Br anch cus) cus) pharyngiti pharyngiti s s Antepartum Antepartum Disease Resolve 2016-08-29 2016-08-29 Univers anemia in anemia in d 9 00:00:00 21:17:56 ity of third third 00:00: [place] trimester trimester 00 [facility] Tobacco Tobacco Disease Resolve 2016-08-29 2016-08-29 Univers use use d 10-17 00:00:00 21:17:45 ity of disorder disorder 00:00: [place] complicati complicati 00 Me dical [facility] , , childbirth childbirth , or , or puerperium puerperium , , antepartum antepartum Altered Altered Disease Resolve 2016-08-29 2016-08-29 Univers mental mental d 5- 00:00:00 21:17:57 ity of status status 00:00: [place] 00 [facility] Drug Drug Disease Resolve 2016-08-29 2016-08-29 Univers abuse, abuse, d 4- 00:00:00 21:17:54 ity of opioid opioid 00:00: [place] type type 00 [facility] Multiparou Multiparou Disease Resolve 2016-08-29 2016-08-29 Univers s s d 4- 00:00:00 21:17:51 ity of 00:00: [place] 00 [facility] Supervisio Supervisio Disease Resolve 2016-08-29 2016-08-29 Univers n of other n of other d 2- 00:00:00 21:17:47 ity of high-risk high-risk 00:00[place] [facility] Allergies, Adverse Reactions, Alerts This patient has no known allergies or adverse reactions. Social History Social Habit Start Date Stop Date Quantity Comments Source Exposure to Not sure University of SARS-CoV-2 (event) [facility] Alcohol intake 2021-05-29 2021-05-29 Current University of 00:00:00 00:00:00 non-drinker of [facility] alcohol Branch (finding) Cigarettes smoked 2019-05-18 2019-05-18 Univers ity of current (pack per 00:00:00 00:00:00 [facility] ) - Reported Branch Cigarette 2019-05-18 2019-05-18 University of pack-years 00:00:00 00:00:00 [facility] Tobacco use and 2019-05-18 2019-05-18 Never used Universit y of exposure 00:00:00 00:00:00 [facility] History of tobacco 2015-08-06 2019-04-06 Cigarette Smoker University of use 00:00:00 00:00:00 [facility] Alcohol Comment 2017-10-09 2017-10-09 approx 2 drinks Univ ersity of 00:00:00 00:00:00 per week [facility] Sex [birth year] Universit y of 00:00:00 00:00:00 [facility] Smoking Status Start Date Stop Date Source Former smoker 2019-05-18 00:00:00 2019-05-18 00:00:00 Universi ty of [facility] Medications Ordered Filled Start Stop Current Ordering Indication Dosage Frequency Signature Comments Components Source Medication Medication Date Date Medication? Clinician (SIG) Name Name romain- Yes [id number] 1{tbl} Take 1 Univers acetaminoph 1-11 tablet by ity of en-caff 00:00: mouth [place] 50-325-40 00 every 6 Medical mg tablet (six) Branch hours as needed for Pain (scale 7-10). acetaminoph Yes [id number] 1000mg Take 2 Univers en 500 mg 1-10 tablets by ity of tablet 00:00: mouth [place] 00 every 12 Medical (twelve) Branch hours. baclofen 10 Yes [id number] 10mg Take 1 Univers mg tablet 1-10 tablet by ity o f 00:00: mouth 3 [place] 00 (three) Medical times Branch daily. gabapentin 2021- Yes [id number] 300mg Take 1 Univers 300 mg 1-10 capsule by ity of capsule 00:00: mouth 3 [place] 00 (three) Medical times Branch daily. docusate 2022-0 Yes [id number] 240mg Take 1 U nivers calcium 240 1-10 capsule by it y of mg capsule 00:00: mouth [place] 00 daily as Medical needed for Branch Constipati on. ferrous Yes [id number] 325mg Take 1 Un mackenzie sulfate 325 1-10 tablet by ity of mg (65 mg 00:00: mouth 2 [place] iron) 00 (two) Medical tablet times Branch daily. ibuprofen Yes [id number] 600mg Take 1 Univers 600 mg 1-10 tablet by ity of tablet 00:00: mouth [place] 00 every 6 Medical (six) Branch hours as needed (Pain). Take with food or milk. SUBOXONE 2020-[address] 1 Univer s 8-2 mg 1-18 FILM UNDER ity of sublingual 00:00: THE TONGUE [place] film 00 TWICE Medical DAILY AND Branch 1/2 FILM UNDER THE TONGUE AT NIGHT traZODone Yes Univers 50 mg 3-01 ity of tablet 00:00: [place] 00 Medical Branch traZODone 0 Yes Univers 50 mg 3-01 ity of tablet 00:00: [place] 00 [facility] Branch buprenorphi Yes Place Unive rs ne [...] (Pain). Take with food or milk. buPROPion 2019-0 Yes Other 150mg Take 1 Univ ers XL 2-12 depression tablet by ity of (WELLBUTRIN 00:00: mouth [place] XL) 150 mg 00 daily. Medical 24 hr Branch tablet Immunizations Ordered Filled Immunization Date Status Comments [facility] e Immunization Name Name Influenza Virus 2021-03-21 Completed Universit y of Vaccine Quad IM, 00:00:00 [facility] dical Preserv and ABX Branch Free 6 MO-64 YRS TDAP 2021-03-21 Completed University of 00:00:00 [facility] HPV9 2020-08-10 Completed University of 00:00:00 [facility] HPV9 2020-08-10 Completed University of 00:00:00 [facility] HPV9 2020-03-27 Completed University of 00:00:00 [facility] HPV9 2020-03-27 Completed University of 00:00:00 [facility] TDAP 2020-01-19 Completed University of 00:00:00 [facility] Influenza Virus 2020-01-19 Completed Universit y of Vaccine Quad .5 mL 00:00:00 [facility] 6+ MO Branch TDAP 2020-01-19 Completed University of 00:00:00 [facility] Influenza Virus 2020-01-19 Completed Universit y of Vaccine Quad .5 mL 00:00:00 [facility] 6+ MO Branch HPV9 2019-04-06 Completed University of 00:00:00 [facility] HPV9 2019-04-06 Completed University of 00:00:00 [facility] TDAP 2019-01-31 Completed University of 00:00:00 [facility] Influenza Virus 2019-01-31 Completed Universit y of Vaccine Quad .5 mL 00:00:00 [facility] 6+ MO Branch TDAP 2019-01-31 Completed University of 00:00:00 [facility] Influenza Virus 2019-01-31 Completed Universit y of Vaccine Quad .5 mL 00:00:00 [facility] 6+ MO Branch TDAP 2014-12-18 Completed University of 00:00:00 [place] [facility] TDAP 2014-12-18 Completed University of 00:00:00 [place] [facility] TDAP 2013-06-02 Completed University of 00:00:00 [place] [facility] TDAP 2013-06-02 Completed University of 00:00:00 [place] [facility] Vital Signs Vital Name Observation Time Observation Value Comments Source Systolic blood 2021-05-28 19:40:00 116 mm[Hg] Univer sity of pressure [place] [facility] Diastolic blood 2021-05-28 19:40:00 71 mm[Hg] Unive rsity of pressure [place] [facility] Heart rate 2021-05-28 19:40:00 70 /min Universi ty of [place] [facility] Body temperature 2021-05-28 19:40:00 36.67 Blessing Univ ersity of [place] [facility] Respiratory rate 2021-05-28 19:40:00 18 /min Univ ersity of [place] [facility] Body height 2021-05-28 19:40:00 167.6 cm Universi ty of [place] [facility] Body weight 2021-05-28 19:40:00 87.743 kg Universi ty of [place] [facility] BMI 2021-05-28 19:40:00 31.22 kg/m2 Universi ty of [place] [facility] Systolic blood 2020-08-10 13:38:00 126 mm[Hg] Univer sity of pressure [place] [facility] Diastolic blood 2020-08-10 13:38:00 87 mm[Hg] Unive rsity of pressure [place] [facility] Heart rate 2020-08-10 13:38:00 86 /min Universi ty of [place] [facility] Body temperature 2020-08-10 13:38:00 36.94 [facility] Univ ersity of [place] [facility] Respiratory rate 2020-08-10 13:38:00 16 /min Univ ersity of [place] [facility] Body height 2020-08-10 13:38:00 165.1 cm Universi ty of [place] [facility] Body weight 2020-08-10 13:38:00 87.091 kg Universi ty of [place] [facility] BMI 2020-08-10 13:38:00 31.95 kg/m2 Universi ty of [place] [facility] Systolic blood 2020-08-10 13:38:00 126 mm[Hg] Univer sity of pressure [place] [facility] Diastolic blood 2020-08-10 13:38:00 87 mm[facility]Hg[facility] Heart rate 2020-08-10 13:38:00 86 /min [facility] Body temperature 2020-08-10 13:38:00 36.94 [facility] 2020-08-10 13:38:00 16 /min [facility] Body height 2020-08-10 13:38:00 165.1 cm Universi [facility] Body weight 2020-08-10 13:38:00 87.091 kg [facility] BMI 2020-08-10 13:38:00 31.95 kg/m2 [facility] Procedures Procedure Date / Time Performed Performing Clinician Lexus villegas GARDASIL 9 (HPV 9V) 2020-08-10 13:35:02 Marjorie Lin [facility] VACCINE [facility] Plan of Care Planned Activity Planned Date Details Comments Source Future Scheduled 2030-01-18 DTaP,Tdap,and Td [facility] Test 00:00:00 Vaccines (5 - Td) Medical Br anch [code = DTaP,Tdap,and Td Vaccines (5 - Td)] Future Scheduled 2022-05-18 Screening for [facility] Test 00:00:00 malignant neoplasm Medical B ranch of cervix (procedure) [code = [id number]] Future Scheduled 2021-04-02 Depression screening [facility] Test 00:00:00 (procedure) [code = Medical Branch [id number]] Future Scheduled 2005 SARS-CoV-2 [facility] Test 00:00:00 (COVID-19) Vaccine Medical B ranch (1) [code = SARS-CoV-2 (COVID-19) Vaccine (1)] Encounters Start End Encounter Admission Attending Care Care Encounter Source Date/Time Date/Time Type Type Clinicians Facility Department ID 2021-05-28 2021-05-28 Routine Fish, Rosie [facility] ROD [id number] Univers 13:15:00 14:04:47 STAN [id number] i ty of Visit WOMEN'S [id number] [facility] [id number] [facility] 134 Branch 2020-10-02 2020-10-02 Outpatient G_Paprubens [facility] [id number] [place] 03:15:00 03:15:00 0629 [facility] 2020-08-10 2020-08-10 Nurse Nurse, Steve [facility] [id number] 08:17:27 08:44:28 Visit Rmchp Exp NEWS CORRESPONDENT [id number] Cprit Obgyn [facility] [id number] MATERNAL [id number] & CHILD [facility] 2020-06-26 2020-06-26 Patient Damion MAMICHELLE [id number] 00:00:00 00:00:00 Outreach [facility] [id number] [facility] [id number] PAVILLION [id number] 2020-05-29 2020-05-29 Telephone Riley MAMICHELLE [id number] 00:00:00 00:00:00 Marjorie C NEWS CORRESPONDENT [id number] [facility] [id number] MATERNAL [id number] & CHILD 107 [facility] 2020-05-17 2020-05-17 Office Riley MAMICHELLE [id number] 15:34:05 16:23:43 Visit Marjorie C NEWS CORRESPONDENT [id number] [facility] [id number] MATERNAL [id number] & CHILD 107 [facility] 2017-05-14 2017-05-14 Emergency [facility] [id number] [place] 12:33:15 12:33:15 Health Results This patient has no known results.
[2021-08-08] MEDS ORDERED: IBUPROFEN 400 MG TAB ONE (23:39)
[2021-08-08] MEDS ORDERED: LIDOCAINE 1% MPF 5 ML VIAL ONE (23:39)
--- NOTE | 2021-08-09 00:39 | ER ---
Nurse's Notes [facility] Name: Margie Coley Age: 31 yrs Sex: Female : 1990 Arrival Date: 08/08/2021 Time: 21:38 Bed 11 Private MD: Diagnosis: Laceration without foreign body of left index finger without damage to nail Presentation: 08/08 22:01 Chief complaint: Patient states: "I cut my finger with a knife while I was trying to lp1 cut my mask"; Laceration to left index finger, no active bleeding during triage. Coronavirus screen: At this time, the client does not indicate any symptoms associated with coronavirus-19. Ebola Screen: No symptoms or risks identified at this time. Complicating Factors: There are no complicating factors for this patient. Initial Sepsis Screen: Does the patient meet any 2 criteria? No. Patient's initial sepsis screen is negative. Does the patient have a suspected source of infection? No. Patient's initial sepsis screen is negative. Risk Assessment: Do you want to hurt yourself or someone else? Patient reports no desire to harm self or others. Onset of symptoms was August 08, 2021. 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: 22:03 [facility] 07/09/2021 lp1 Historical: - Allergies: 22:03 No Known Allergies; lp1 - Home Meds: 22:03 baclofen 10 mg Oral tab 1 tab 3 times per day [Active]; celecoxib 200 mg Oral cap 1 cap lp1 2 times per day [Active]; docusate calcium 240 mg Oral cap 1 cap once daily [Active]; ferrous sulfate 325 mg (65 mg iron) Oral TbEC twice a day [Active]; gabapentin 300 mg Oral cap 1 cap 3 times per day [Active]; ibuprofen 600 mg Oral tab 1 tab every 6 hours [Active]; metoclopramide HCl 10 mg Oral tab 1 tab 4 times per day [Active]; - PMHx: 22:03 Anemia; Anxiety; back problems; Bipolar disorder; Depression; Substance Abuse; lp1 - PSHx: 22:03 section; Appendectomy; lp1 - Immunization history:: Adult Immunizations up to date. - Social history:: Smoking status: Patient denies any tobacco usage or history of. Screenin:04 Abuse screen: Denies threats or abuse. Denies injuries from another. Nutritional lp1 screening: No deficits noted. Tuberculosis screening: No symptoms or risk factors identified. Fall Risk None identified. Assessment: 22:03 General: Appears in no apparent distress. Behavior is calm, cooperative. Pain: lp1 Complains of pain in palmar aspect of distal phalanx of left index finger Pain currently is 3 out of 10 on a pain scale. Quality of pain is described as throbbing. Neuro: Level of Consciousness is awake, alert, obeys commands. Cardiovascular: Patient's skin is warm and dry. Respiratory: Respiratory effort is even, unlabored. GI: No signs and/or symptoms were reported involving the gastrointestinal system. : No signs and/or symptoms were reported regarding the genitourinary system. EENT: No signs and/or symptoms were reported regarding the EENT system. Derm: Wound noted Wound is Laceration to tip of left index finger. Musculoskeletal: Circulation, motion, and sensation intact. Range of motion: intact in all extremities. 22:50 Injury Description: Laceration sustained to palmar aspect of distal phalanx of left tw5 index finger is contaminated, 0.5 to 2.5 cm long, not bleeding, was sustained 6-12 hours ago. Vital Signs: 22:01 BP 122 / 91; Pulse 69; Resp 16; Temp 98.2(TE); Pulse Ox 100% on R/A; Weight 86.18 kg lp1 (R); Height 5 ft. 3 in. (160.02 cm); Pain 3/10; 22:01 Body Mass Index 33.66 (86.18 kg, 160.02 cm) lp1 ED Course: 21:38 Patient arrived in ED. bp1 22:02 Triage completed. lp1 22:02 Arm band placed on. lp1 22:04 Patient has correct armband on for positive identification. lp1 22:13 Vince Chapman PA is PHCP. cp 22:13 Alphonso Elder MD is Attending Physician. cp 22:47 Kaylee Farias is Primary Nurse. tw5 22:50 Door closed. Noise minimized. Moved to private room. Warm blanket given. Verbal tw5 reassurance given. 23:37 Assist provider with lumbar puncture: Set up LP tray. Patient did not have IV access tw5 during this emergency room visit. 08/09 00:11 XRAY Finger-Thumb Left In Process Unspecified. EDMS 01:03 Wound care: to laceration located on palmar aspect of distal phalanx of left index jb4 finger was dressed with Neosporin, band aid. Administered Medications: 08/08 23:37 Drug: Ibuprofen 800 mg Route: PO; tw5 08/09 00:45 Drug: Lidocaine (1 %) 5 ml {Note: By Provider for laceration repair .} Volume: 5 ml; tw5 Route: Infiltration; Outcome: 00:39 Discharge ordered by MD. rocha 01:04 Patient left the ED. jb4 Signatures: Dispatcher [employer] EDMS Farhana Sanders RN RN lp1 Vince Chapman PA PA cp Bryson, James, RN RN jb4 Dorothy Cleveland Tiffany tw5
--- NOTE | 2021-08-09 00:40 | EDPHYS ---
Physician Documentation [facility] Name: Margie Coley Age: 31 yrs Sex: Female : 1990 Arrival Date: 08/08/2021 Time: 21:38 Bed 11 Private MD: ED Physician Alphonso Elder HPI: 08/08 23:10 This 31 yrs old Female presents to ER via Ambulatory with complaints of cp Laceration, Finger. 23:10 The patient or guardian reports a laceration, clean. cp 23:10 The complaints affect the latera side left index finger. Context: resulted from cp accidental, use of knife. Onset: The symptoms/episode began/occurred this afternoon. Associated signs and symptoms: The patient has no apparent associated signs or symptoms. 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 07/09/2021 lp1 Historical: - Allergies: 22:03 No Known Allergies; lp1 - Home Meds: 22:03 baclofen 10 mg Oral tab 1 tab 3 times per day [Active]; celecoxib 200 mg Oral cap 1 cap lp1 2 times per day [Active]; docusate calcium 240 mg Oral cap 1 cap once daily [Active]; ferrous sulfate 325 mg (65 mg iron) Oral TbEC twice a day [Active]; gabapentin 300 mg Oral cap 1 cap 3 times per day [Active]; ibuprofen 600 mg Oral tab 1 tab every 6 hours [Active]; metoclopramide HCl 10 mg Oral tab 1 tab 4 times per day [Active]; - PMHx: 22:03 Anemia; Anxiety; back problems; Bipolar disorder; Depression; Substance Abuse; lp1 - PSHx: 22:03 section; Appendectomy; lp1 - Immunization history:: Adult Immunizations up to date. - Social history:: Smoking status: Patient denies any tobacco usage or history of. ROS: 23:18 Skin: Positive for laceration(s), of the radial side left index finger. cp 23:18 Constitutional: Negative for body aches, chills, fever, poor PO intake. cp 23:18 MS/extremity: Positive for pain, of the left index finger. 23:18 Neuro: Negative for numbness, tingling, weakness. cp 23:18 All other systems are negative. cp Exam: 23:20 Constitutional: The patient appears in no acute distress, alert, awake, well developed, cp well nourished. 23:20 Musculoskeletal/extremity: Extremities: grossly normal except: noted in the lateral cp side middle and distal phalanx left index finger: ROM: full active range of motion, in the left index finger, Perfusion: the extremity is normally perfused throughout, the left index finger Sensation intact. Tendon exam: specific tendon testing normal through active and passive range of motion Vital Signs: 22:01 BP 122 / 91; Pulse 69; Resp 16; Temp 98.2(TE); Pulse Ox 100% on R/A; Weight 86.18 kg lp1 (R); Height 5 ft. 3 in. (160.02 cm); Pain 3/10; 22:01 Body Mass Index 33.66 (86.18 kg, 160.02 cm) lp1 Laceration: 08/09 00:47 Wound Repair of 2.5cm ( 1.0in ) subcutaneous laceration to radial side middle and cp distal phalanx left index finger. Linear shaped.. Distal neuro/vascular/tendon intact. Anesthesia: Wound infiltrated with 2 mls of 1% lidocaine. Wound prep: Simple cleansing by me, Wound irrigation by me. Skin closed with 4 4-0 Prolene using interrupted sutures and sterile technique. Dressed with Bacitracin, 4x4's. Patient tolerated well. MDM: 08/08 22:28 Patient medically screened. cp 23:30 Differential diagnosis: closed fracture, tendon injury, simple laceration. cp 08/09 00:39 Data reviewed: vital signs, nurses notes, radiologic studies, plain films. cp 00:39 Test interpretation: by ED physician or midlevel provider: plain radiologic studies. cp Counseling: I had a detailed discussion with the patient and/or guardian regarding: the historical points, exam findings, and any diagnostic results supporting the discharge/admit diagnosis, radiology results, to return to the emergency department if symptoms worsen or persist or if there are any questions or concerns that arise at home. Response to treatment: the patient's symptoms have markedly improved after treatment, and as a result, I will discharge patient. 08/08 23:04 Order name: XRAY Finger-Thumb Left cp 08/08 23:04 Order name: Dressing - Wound; Complete Time: 00:44 cp 08/08 23:04 Order name: Gloves, Sterile; Complete Time: 00:44 cp 08/08 23:04 Order name: Setup Suture Tray; Complete Time: 23:38 cp 08/09 00:37 Order name: Wound dressing; Complete Time: 01:03 cp Administered Medications: 08/08 23:37 Drug: Ibuprofen 800 mg Route: PO; tw5 08/09 00:45 Drug: Lidocaine (1 %) 5 ml {Note: By Provider for laceration repair .} Volume: 5 ml; tw5 Route: Infiltration; Disposition: 01:28 Co-signature as Attending Physician, Alphonso Elder MD I agree with the assessment and kdr plan of care. Disposition Summary: 08/09/21 00:39 Discharge Ordered Location: Home cp Problem: new cp Symptoms: have improved cp Condition: Stable cp Diagnosis - Laceration without foreign body of left index finger without damage to nail cp Followup: cp - With: Private Physician - When: 7 - 10 days - Reason: Staple/Suture removal Discharge Instructions: - Discharge Summary Sheet cp - Laceration Care, Adult cp Forms: - Medication Reconciliation Form cp - Thank You Letter cp - Antibiotic Education cp - Prescription Opioid Use cp Signatures: Dispatcher [employer] EDAlphonso Barry MD MD kdr Farhana Sanders RN RN lp1 Vince Chapman PA PA cp Kaylee Farias tw5 Corrections: (The following items were deleted from the chart) 01: 00:39 Splint - Finger ordered. cp jb4
[2021-08-09 01:37] VITALS: BP 122/91; TEMP 98.2; O2SAT 100
--- NOTE | 2021-08-12 11:25 | RAD REPORT ---
EXAM DESCRIPTION: - Finger-Thumb Left - 08/09/2021 12:09 am CLINICAL HISTORY: Laceration COMPARISON: None. FINDINGS: 3 views of the left fingers. No acute fracture or dislocation. Normal osseous mineralizati on. No radiopaque foreign body. IMPRESSION: 1. No acute fracture or dislocation. Electronically signed by: Jaycob Garza 08/09/2021 12:25 AM CDT Due to temporary technical issues with the PACS/Fluency reporting system, reports are being signed by the in house radiologist without review as a courtesy to ensure prompt reporting. The interpreting r adiologist is fully responsible for the content of the report.
== END 2021-08-09 01:04 | disposition home or self-care (01) ==
LOC: ER 21:29
PROC: 0JQK0ZZ Repair Left Hand Subcutaneous Tissue and Fascia, Open Approach (ICD-10-PCS; principal; 2021-08-09)
DX: S61.211A Laceration without foreign body of left index finger without damage to nail, initial encounter (principal); W26.0XXA Contact with knife, initial encounter; F31.9 Bipolar disorder, unspecified
CPT/HCPCS: 62270; 99284

== ENCOUNTER 2022-02-21 06:56 | Day surgery (SDC) | payer OTHER ==
[2022-02-21] MEDS ORDERED: Ringers Lactate 1,000 ML IV ONE (07:13)
[2022-02-21] MEDS ORDERED: propofoL 200 MG/20 ML VIAL IV ONE ×3 (07:58→08:10)
[2022-02-21] MEDS ORDERED: LIDOCAINE 1% MPF 5 ML VIAL ONE (07:59)
--- NOTE | 2022-02-21 08:30 | ENDO RPT ---
[address], [address] COLONOSCOPY PROCEDURE REPORT EXAM DATE: 02/21/2022 PATIENT NAME: Margie Coley MR #: [id number] BIRTHDATE: 1990 ATTENDING: Vikas Rodriguez DR STATUS: outpatient [employer] BUSINESS INTELLIGENCE DEVELOPER: Mita Mesa RN and Anders Dickerson [facility] INDICATIONS: The patient is a 31 yr old Female here for a colonoscopy due to Chronic Diarrhea / Change in bowel habits PROCEDURE PERFORMED: Colonoscopy with biopsy MEDICATIONS: Per Anesthesia. ESTIMATED BLOOD LOSS: None CONSENT: The patient understands the risks and benefits of the procedure and understands that these risks include, but are not limited to: sedation, allergic reaction, infection, perforation and/or bleeding. Alternative means of evaluation and treatment include, among others: physical exam, x-rays, and/or surgical intervention. The patient elects to proceed with this endoscopic procedure. DESCRIPTION OF PROCEDURE: During intra-op preparation period all mechanical medical equipment was checked for proper function. Hand hygiene and appropriate measures for infection prevention was taken. Procedure, possible complications, alternatives including, but not limited to possibility of bleeding, perforation, tear, infection, sepsis, need for surgery, need for blood transfusion, were explained to the patient. After the risks, benefits and alternatives of the procedure were thoroughly explained, Informed consent was verified, confirmed and timeout was successfully executed by the treatment team. The patient was placed in the left lateral position. A digital rectal exam was performed and revealed internal hemorrhoids and A digital rectal exam was performed and revealed external hemorrhoids. After appropriate level of anesthesia, the scope was passed. The EC-[id number] ([id number]) endoscope was introduced through the anus and advanced to the cecum. The quality of the prep was inadequate. The instrument was then slowly withdrawn as the colon was fully examined. Scope withdrawal time was 10 minutes. COLON FINDINGS: Inadequate prep - semisolid stool present in large volume throughout colon. Retroflexed views revealed no abnormalities. The scope was then completely withdrawn from the patient and the procedure terminated. ADVERSE EVENTS: There were no complications. IMPRESSIONS: Inadequate prep - semisolid stool present in large volume throughout colon RECOMMENDATIONS: 1. avoid NSAIDS for 2 weeks 2. await biopsy results 3. Repeat Colonoscopy with 2 day prep RECALL: Return in 1 week(s) for Colonoscopy, pending biopsy results. Vikas Rodriguez DR eSigned: Vikas Rodriguez DR 02/21/2022 8:30 AM cc: CPT CODES: ICD9 CODES:
[2022-02-21 10:17] VITALS: O2SAT 100
[2022-02-21 11:47] VITALS: BP 124/77; TEMP 97.7
== END 2022-02-21 09:11 | disposition home or self-care (01) ==
LOC: OR 06:56
PROVIDERS: ATTEND Surgery
PROC: 0DBL8ZX Excision of Transverse Colon, Via Natural or Artificial Opening Endoscopic, Diagnostic (ICD-10-PCS; 2022-02-21)
PROC: 0DBN8ZX Excision of Sigmoid Colon, Via Natural or Artificial Opening Endoscopic, Diagnostic (ICD-10-PCS; 2022-02-21)
PROC: 0DBH8ZX Excision of Cecum, Via Natural or Artificial Opening Endoscopic, Diagnostic (ICD-10-PCS; principal; 2022-02-21 08:00)
DX: R19.7 Diarrhea, unspecified (principal)
CPT/HCPCS: 36415; 84703; 88305; 45380; J2704 ×2; J2001; J7120

== ENCOUNTER 2022-02-24 08:02 | Day surgery (SDC) | payer OTHER ==
--- NOTE | 2022-02-20 13:00 | EKG ---
Test Date: 2022-02-19 Test Time: 16:01:06 Spoke Maker: TAZ MEASUREMENT RESULTS: Intervals: Rate: 74 WY: 154 QRSD: 82 QT: 396 QTc: 439 Ramona: P: 62 WY: 154 QRS: 77 T: 79 INTERPRETIVE STATEMENTS: Normal sinus rhythm Normal ECG Compared to ECG 04/11/2018 23:28:38 Sinus arrhythmia no longer present Electronically Signed On 02-20-22 12:59:23 BUTCHER'S ASSISTANT by Bayron Oleary
[2022-02-24] MEDS ORDERED: BUPIVACAINE 0.25% PF 10 ML VIAL ONE (08:03)
[2022-02-24] MEDS ORDERED: Ringers Lactate 1,000 ML IV ONE (08:09)
[2022-02-24] MEDS ORDERED: CEFAZOLIN SODIUM 1 GM/VIAL ONE (08:09)
[2022-02-24 09:35] LABS: Urine Specific Gravity/Preg >1.030 (1.005-1.030)
[2022-02-24] MEDS ORDERED: SODIUM HYPOCHLORITE 0.25% 473 ML ONE (09:54)
[2022-02-24] MEDS ORDERED: propofoL 200 MG/20 ML VIAL IV ONE (10:31)
[2022-02-24] MEDS ORDERED: MIDAZOLAM HCL 2 MG/2 ML INJ ONE (10:31)
[2022-02-24] MEDS ORDERED: LIDOCAINE 2% MPF 5 ML VIAL ONE (10:31)
[2022-02-24] MEDS ORDERED: FENTANYL CITR 100 MCG/2 ML ONE (10:31)
[2022-02-24] MEDS ORDERED: ONDANSETRON 4 MG/2 ML VIAL ONE ×2 (10:42→11:26)
[2022-02-24] MEDS ORDERED: dexAMETHasone 10 MG/ML VIAL ONE (10:51)
[2022-02-24] MEDS ORDERED: GLYCOPYRROLATE 0.2 MG/ML SYR ONE (10:59)
[2022-02-24] MEDS ORDERED: KETOROLAC 30 MG/ML INJ ONE (10:59)
--- NOTE | 2022-02-24 11:05 | P.OP ---
Preoperative diagnosis: RIGHT Neck Mass Postoperative diagnosis: RIGHT Neck Mass Primary procedure: Excisional Biopsy of RIGHT Neck Mass Anesthesia: GETA + Local Estimated blood loss: <2cc Specimen: 1.3cm firm neck mass Findings: 1.3cm firm neck mass Complications: None Transferred to: Recovery Room Condition: Good
[2022-02-24] MEDS: HYDROMORPHONE HCL 1 MG/ML INJ ONE ×2 (11:27→11:32)
[2022-02-24] MEDS: MEPERIDINE HCL 25 MG/ML SYR ONE ×2 (11:37→11:42)
[2022-02-24] MEDS ORDERED: HYDROMORPHONE HCL 1 MG/ML INJ ONE (11:42)
[2022-02-24 12:51] VITALS: BP 119/79; TEMP 98.4; O2SAT 98
--- NOTE | 2022-02-24 21:36 | OP ---
Date of Procedure: 02/24/2022 Surgeon: Vikas Rodriguez MD, Preoperative Diagnosis: Right neck mass. Postoperative Diagnosis: Right neck mass. Procedure Performed: Excisional biopsy of right neck mass. Anesthesia: General endotracheal plus local with 0.25% Marcaine. Estimated Blood Loss: Less than 2 cc. Specimen: A 1.3 cm firm neck mass. Findings: A 1.3 cm firm neck mass. Complications: None. The patient was transferred to recovery room in good condition. Procedure In Detail: After informed consent was obtained, patient was brought to the operating room and prepped and draped in the usual sterile fashion. After adequate anesthesia was achieved, I did p lace additional anesthesia in the form of 0.25% Marcaine overlying the right neck mass, which is appr oximately 1.3 cm in size down through subcutaneous tissues. It was overlying the sternocleidomastoid in the midportion. I used a 15 blade down to dissect through subcutaneous tissues down to the derma l plane. I used electrocautery with needle-tip Bovie on low setting circumferentially to dissect leobardo e this subcutaneous mass. It did not extend to the investing fascia overlying the sternocleidomastoi d and as such, the tissue was removed circumferentially around. The mass was found to be approximate ly 1.3 cm in size. I then removed the mass, sent it off for pathologic examination. The area was co piously irrigated. No hemostatic measures were required. I then closed the skin with a 4-0 Monocryl in running fashion. Dermabond was placed on top. The patient tolerated the procedure without evide nce of any complication and was transferred back in good condition. All counts were correct at the end of the case. MARIA GUADALUPE/BERTHA Voice ID: [id number] Report ID: [id number]
== END 2022-02-24 12:42 | disposition home or self-care (01) ==
LOC: OR 08:02
PROVIDERS: ATTEND Surgery
PROC: 0JB40ZZ Excision of Right Neck Subcutaneous Tissue and Fascia, Open Approach (ICD-10-PCS; principal; 2022-02-24 09:30)
DX: D23.4 Other benign neoplasm of skin of scalp and neck (principal)
CPT/HCPCS: 93005; 81025; 88305; 11422; J2704; J2001; J2250; J3010; J1100; J2175; J1170 ×2; J7120; J2405 ×2; J0690

== ENCOUNTER 2022-08-13 21:47 | Emergency (ER) | payer OTHER ==
--- OUTSIDE RECORDS SUMMARY | 2022-08-13 21:50 | XMS REPORT | Continuity of Care Document ---
:1990 Author Organization [facility] t Address [address] [place] [address] [address] [place] [address] Care Team Providers Name Role Phone MARJORIE COHEN Primary Care Physician Unavailable Paz Sun Attending Clinician Unavailable SAPNA MINOR Attending Clinician Unavailable SAPNA MINOR Attending Clinician Unavailable ROBINSON ALVAREZ Attending Clinician Unavailable MAYURI Attending Clinician Unavailable Robinson Alvarez MD Attending Clinician JUNI JESUS Attending Clinician Unavailable Juni Jesus MD Attending Clinician DANIEL LUCAS Attending Clinician Unavailable Daniel Gillette B Attending Clinician Armando Barnett MD, Tesha Attending Clinician [phone] Criss Duenas MD Attending Clinician Shlomo Rodriguez DO Attending Clinician Leticia Osorio MD Attending Clinician MARJORIE COHEN Attending Clinician Unavailable Riley HILL Marjorie Vivi Attending Clinician [phone] GER RAMIREZ Attending Clinician Unavailable 3, [facility] Usg Room Attending Clinician Unavailable Ger Ramirez MD Attending Clinician Doctor Unassigned, [place] Attending Clinician Unavailable G_Pappas Attending Clinician Unavailable Nurse, Steve Rmchp Exp Cprit Obgyn Attending Clinician Unavail able Deepak Duenas DO Attending Clinician FARA ISSA Attending Clinician Unavailable CRISS DUENAS Attending Clinician Unavailable CRISS DUENAS Attending Clinician Unavailable MILLA GILLETTE Attending Clinician Unavailable MAYURI Admitting Clinician Unavailable Criss Duenas MD Admitting Clinician CRISS DUENAS Admitting Clinician Unavailable Bob_Abdelrahman Admitting Clinician Unavailable Payers Payer Name Policy Type Policy Number Effective Date Expiration Date S [facility] MEDICARE PART A [id number] 2019 \T\ B 00:00:00 [place] [id number] 2019 [place] 00[place]00 [facility] [place] STAR [id number] 2021 PLUS 00:00:00 [facility] DUAL [id number] 2021 COMP CHOICE PPO 00:00:00 [place] [id number] 2021 Common HEALTHCARE DUAL 00:00:00 [facility] - [facility] MEDICARE [id number] 2021 2021 COMPLETE CHOICE 00:00:00 00:00:00 Problems Condition Condition Condition Status Onset Resolution Last Treating Co mments Source Name Details Category Date Date Treatment Clinician Date S/P S/P Disease Active Univers 1-11 ity of 00:00: [place] 00 Medical Branch Lab test Lab test Disease Active 2020-04 Unive rs positive positive 2-27 ity of for for 00:00: [place] detection detection 00 Medi luis of of Branch COVID-19 COVID-19 virus virus Rubella Rubella Disease Active 2020-04 Overview: Univ ers non-immune non-immune 2-17 Formattin ity of status, status, 00:00: g of this [place] antepartum antepartum 00 note Me dical might be Branch different from the original. Address pp Multiparit Multiparit Disease Active 2020-04 U nivers y y 2-16 ity of 00:00: [place] Medical Branch History of History of Disease Active 2020-04 Overview : Univers 2-16 Formattin ity of section section 00:00: g of this [place] 00 note Medical might be Branch different from the original. 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 complicati complicati Br anch ng ng , , antepartum antepartum , third , third trimester trimester History of History of Disease Active 2020-0 U nivers narcotic narcotic 8-25 it[place] of addiction [place] Other Other Disease Active 2020-0 Univers abnormal abnormal 8-25 ity of tumor tumor 00:00: [place] markers markers 00 Medical Branch History of History of Disease Active 2020-0 U nivers alcohol alcohol 6-10 ity of use use 00:00: [place] [facility] Other Other Disease Active 2020-0 Univers depression depression 2-12 it y of 00:00: [place] Medical [facility] History of History of Disease Active 2017-0 U nivers asthma asthma 5-26 ity of 00:00: [place] [address] Medical Branch [id number] Other Problem Active Common chronic Spirit pain - [facility] [id number] Opioid Problem Active Common dependence Spirit in - [facility] [id number] Primary Problem Active Common insomnia Spirit - [facility] Allergies, Adverse Reactions, Alerts Allergy Allergy Status Severity Reaction(s) Onset Inactive Treating Comm ents Source Name Type Date Date Clinician NO KNOWN Drug Active Univers ALLERGIE Class ity of S [facility] Social History Social Habit Start Date Stop Date Quantity Comments Source History of Tobacco Common Spirit - Use [facility] Sex Assigned At Common Sp aditya - [facility] Exposure to Not sure University of SARS-CoV-2 (event) [facility] Alcohol intake 2021-05-29 2021-05-29 Current University of 00:00:00 00:00:00 non-drinker of [facility] alcohol Branch (finding) Cigarettes smoked 2019-05-18 2019-05-18 Univers ity of current (pack per 00:00:00 00:00:00 [facility] ) - Reported Branch Cigarette 2019-05-18 2019-05-18 University of pack-years 00:00:00 00:00:00 [facility] Tobacco use and 2019-05-18 2019-05-18 Never used Universit y of exposure 00:00:00 00:00:00 [facility] Smoking Status Start Date Stop Date Source Never Smoker [facility] Former smoker 2019-05-18 00:00:00 2019-05-18 00:00:00 Universi ty of [facility] Medications Ordered Filled Start Stop Current Ordering Indication Dosage Frequency Signature Comments Components Source Medication Medication Date Date Medication? Clinician (SIG) Name Name romain- Yes [id number] 1{tbl} Take 1 Univers acetaminoph 1-11 tablet by ity of en-caff 00:00: mouth [place] 50-325-40 00 every 6 Medical mg tablet (six) Branch hours as needed for Pain (scale 7-10). acetaminoph Yes [id number] 1000mg Take 2 Univers en 500 mg 1-10 tablets by ity of tablet 00:00: mouth [place] 00 every 12 Medical (twelve) Branch hours. baclofen 10 Yes [id number] 10mg Take 1 Univers mg tablet 1-10 tablet by ity o f 00:00: mouth 3 [place] 00 (three) Medical times Branch daily. gabapentin Yes [id number] 300mg Take 1 Univers 300 mg 1-10 capsule by ity of capsule 00:00: mouth 3 [place] 00 (three) Medical times Branch daily. docusate Yes [id number] 240mg Take 1 U nivers calcium 240 1-10 capsule by it y of mg capsule 00:00: mouth once [place] 00 daily as Medical needed for Branch Constipati on. ferrous Yes [id number] 325mg Take 1 Un mackenzie sulfate 325 1-10 tablet by ity of mg (65 mg 00:00: mouth 2 [place] iron) 00 (two) Medical tablet times Branch daily. ibuprofen Yes [id number] 600mg Take 1 Univers 600 mg 1-10 [...] 3-01 ity of tablet 00:00: [place] 00 [facility] Branch Ibuprofen Ibuprofen No TID Ibuprofen 400 MG 400 MG 400 MG Gabapentin Gabapentin No 1{capsu QD Gabapentin 300 MG 300 MG le} 300 MG Buprenorphi Buprenorphi No QD Buprenorph ne ne ine HCl-Naloxon HCl-Naloxon HCl-Naloxo e HCl 8-2 e HCl 8-2 ne HCl 8-2 MG MG MG traZODone traZODone No 1{table QD traZODone HCl 50 MG HCl 50 MG t_at_be HCl 50 MG dtime_a s_neede d} Immunizations Ordered Filled Immunization Date Status Comments Sour e Immunization Name Name Influenza Virus 2021-03-21 Completed Universit y of Vaccine Quad IM, 00:00:00 [facility] dical Preserv and ABX Branch Free 6 MO-64 YRS TDAP 2021-03-21 Completed University 00:00:00 [facility] HPV9 2020-08-10 Completed University 00:00:00 [facility] HPV9 2020-03-27 Completed University 00:00:00 [facility] TDAP 2020-01-19 Completed University 00:00:00 [facility] Influenza Virus 2020-01-19 Completed Universit y of Vaccine Quad .5 mL 00:00:00 [facility] 6+ MO Branch HPV9 2019-04-06 Completed University 00:00:00 [facility] TDAP 2019-01-31 Completed [facility] 00:00:00 [facility] Influenza Virus 2019-01-31 [facility] .5 mL 00:00:00 [facility] 6+ MO Branch TDAP 2014-12-18 Completed [facility] 00:00:00 [facility] TDAP 2013-06-02 Completed [facility] 00:00:00 [facility] Vital Signs Vital Name Observation Time Observation Value Comments Source height 2021-09-18 14:00:00 66 [in_i] [facility] weight 2021-09-18 14:00:00 200.8 [lb_av] [facility] temperature 2021-09-18 14:00:00 97.5 [degF] [facility] bmi 2021-09-18 14:00:00 32.41 kg/m2 [facility] oximetry 2021-09-18 14:00:00 98 % [facility] respiratory rate 2021-09-18 14:00:00 18 /min Comm on [facility] blood pressure 2021-09-18 14:00:00 134 mm[Hg] [facility] systolic [facility] blood pressure 2021-09-18 14:00:00 80 mm[Hg] [facility] diastolic [facility] Systolic blood 2021-05-28 19:40:00 116 mm[Hg] Univer sity of pressure [facility] Diastolic blood 2021-05-28 19:40:00 71 mm[Hg] Unive rsity of pressure [facility] Heart rate 2021-05-28 19:40:00 70 /min Universi ty [facility] Body temperature 2021-05-28 19:40:00 36.67 Blessing Univ ersity [facility] Respiratory rate 2021-05-28 19:40:00 18 /min Univ ersity [facility] Body height 2021-05-28 19:40:00 167.6 cm Universi ty [facility] Body weight 2021-05-28 19:40:00 87.743 kg Universi ty [facility] BMI 2021-05-28 19:40:00 31.22 kg/m2 [facility] Procedures This patient has no known procedures. Encounters Start End Encounter Admission Attending Care Care Encounter Source Date/Time Date/Time Type Type Clinicians Facility Department ID 2021-10-23 Outpatient JOEL Sun [id number] Common 10:33:04 Paz [facility] 2021-09-18 Outpatient JOEL Sun [facility] [id number] Common 14:28:02 Paz [facility] 2021-02-02 Emergency [facility] [id number] Univers 13:14:52 [facility] 2022-06-17 2022-06-17 Outpatient R SAPNA MINOR [facility] B [id number] Univers 11:00:00 11:00:00 ANASAPNA LUZ [facility] 2022-06-10 2022-06-10 Outpatient R ANASAPNA LUZ [facility] B [id number] Univers 14:00:00 14:00:00 ANASAPNA LUZ [facility] 2022-05-30 2022-05-30 Outpatient R SAPNA MINOR [facility] B [id number] Univers 09:30:00 09:30:[address] [facility] 2022-05-29 2022-05-29 Outpatient ROBINSON CONWAY [facility] [id number] Univers 09:00:00 09:00:00 [facility] 2022-05-29 2022-05-29 Outpatient R ROBINSON ALVAREZ [facility] [id number] Univers 09:00:00 09:00:00 [facility] 2021-10-18 2021-10-18 Outpatient IVET MCLAUGHLIN [id number] [place] 10:46:00 10:46:00 HN [id number] da [facility] Program 2021-09-18 2021-09-18 (RATE CLERK) New [facility] [id number] Vivi miller 00:00:00 00:00:00 Patient [facility] 2021-05-28 2021-05-28 Outpatient R ROBINSON ALVAREZ [facility] [id number] Univers 13:15:00 14:04:47 ity [facility] 2021-05-28 2021-05-28 Routine Robinson Alvarez ROD 1.2.840.114 [id number] Univers 13:15:00 14:04:47 STAN 350.1.13.10 i ty of Visit [place] [id number] [address] 2021-05-28 2021-05-28 Letter Robinson Alvarez [facility] [id number] Univers 00:00:00 00:00:00 (Out) STAN 350.1.13.10 it y of [place] [id number] [address] 2021-05-09 2021-05-09 Outpatient R ROBINSON ALVAREZ [facility] [id number] Univers 16:00:00 16:00:00 ity of [facility] 2021-05-06 2021-05-06 Outpatient R ROBINSON ALVAREZ [facility] [id number] Univers 13:15:00 [facility] 2021-05-06 2021-05-06 Routine Robinson Alvarez [facility] [place] 1.2.840.114 [id number] Univers 13:15:00 13:55:03 STAN 350.1.13.10 i ty of Visit [place] 4.2.7.2.686 [place] [id number] [address] 2021-05-03 2021-05-03 Emergency X [facility] ERT [id number] Univers 01:20:00 02:48:00 [facility] 2021-05-03 2021-05-03 Emergency X [facility] ERT [id number] Univers 01:20:00 02:48:00 [facility] 2021-05-03 2021-05-03 Emergency [facility] [id number] Univers 01:20:00 02:48:00 Juni RIVERA 350.1.13.10 ity of [place] 4.2.7.2.686 [facility] [id number] [address] 2021-04-18 2021-04-18 Outpatient R ROBINSON ALVAREZ [facility] [id number] Univers 15:15:00 15:17:33 ity [facility] 2021-04-18 2021-04-18 Routine Antonio Robinson [facility] ROD 1.2.840.114 [id number] Univers 15:15:00 15:17:33 STAN 350.1.13.10 i ty of Visit [facility] 4.2.7.2.[address] [place] [id number] 2021-04-16 2021-04-16 Emergency X [facility] ERT [id number] Univers 21:04:00 22:47:00 DANIEL ity [facility] 2021-04-16 2021-04-16 Emergency X [facility] ERT [id number] Univers 21:04:00 22:47:00 DANIEL ity [facility] 2021-04-16 2021-04-16 Emergency [facility] 1.2.840.114 [id number] Univers 21:04:00 22:47:00 Danieltonny RIVERA 350.1.13.10 i ty of [place] 4.[address] [place] [id number] 2021-04-12 2021-04-15 Hospital Tesha Pollard 1 .2.840.114 [id number] Univers 06:01:00 17:47:00 Encounter Criss Duenas 350.1.13.10 [facility] 4.2.7.2.686 [facility] [id number] [address] 2021-04-12 2021-04-13 Anesthesia Shlomo Rodriguez 1.2.840.114 [id number] Univers 15:00:00 09:40:00 Event Leticia Osorio 350.1.13.10 [facility] 4.2.7.2.[id number] [facility] 140 Branch 2021-04-12 2021-04-12 Surgery ENID Duenas 1.2.840.114 [id number] Univers 08:00:00 09:41:00 Criss GONZALEZ 350.1.13.10 ity [facility] 4.2.7.2.[id number] [facility] 013 Branch 2021-04-10 2021-04-10 Outpatient R ROBINSON ALVAREZ [facility] ISMA [id number] Univers 13:30:00 14:12:03 ity [facility] 2021-04-10 2021-04-10 Outpatient R ROBINSON ALVAREZ [facility] [id number] Univers 13:30:00 14[facility]12:03 [facility] 2021-04-10 2021-04-10 Initial Robinson Alvarez [facility] 1.2.840.114 [id number] Univers 13:30:00 14:12:03 STAN 350.1.13.10 i ty of Visit WOMEN'S 4.2.7.2.686 [facility] [place] [id number] [facility] 134 Branch 2021-04-10 2021-04-10 Outpatient R ROBINSON ALVAREZ [facility] ISMA [id number] Univers 13:30:00 14:12:03 [facility] 2021-04-10 2021-04-10 Outpatient R ROBINSON ALVAREZ [facility] [id number] Univers 13:30:00 13:30:00 [facility] 2021-04-04 2021-04-04 Outpatient R AKINSIPE, [facility] [id number] Univers 12:45:00 13:40:43 MARJORIE ity o [facility] 2021-04-04 2021-04-04 Outpatient R AKINSIPE, [facility] [id number] Univers 12:45:00 13:40:43 MARJORIE ity o f [facility] 2021-04-04 2021-04-04 Routine Akinsipe, [facility] [id number] Univers 12:45:00 13:40:43 Marjorie Vivi ADJUNCT POLITICAL SCIENCE INSTRUCTOR 350.1.13.10 ity of Visit REGIONAL 4.2.7.2.686 Yimi as MATERNAL [id number] [facility] ical & CHILD [address] [place] [address] 2021-04-04 2021-04-04 Outpatient R JANNETSIPE, [facility] [id number] Univers 12:45:00 12:45:00 MARJORIE ity o f [facility] 2021-04-01 2021-04-01 Telephone [facility] 1.2.840.114 [id number] Univers 00:00:00 00:00:00 Marjorie C ADJUNCT POLITICAL SCIENCE INSTRUCTOR 350.1.13.10 ity of REGIONAL 4.2.7.2.686 Yimi as MATERNAL [id number] [facility] CH[facility] [address] [place] [address] 2021-03-28 2021-03-28 Outpatient R SHAYPE, [facility] [id number] Univers 10:30:00 11:15:04 MARJORIE ity o f [facility] 2021-03-28 2021-03-28 [facility] [id number] Univers 10:30:00 11:15:04 Marjorie C ADJUNCT POLITICAL SCIENCE INSTRUCTOR 350.1.13.10 ity of Visit REGIONAL 4.2.7.2.686 Yimi as MATERNAL [id number] [facility] & CHILD [address] [place] [address] 2021-03-28 2021-03-28 Outpatient R AKINSIPE, [facility] [id number] Univers 10:30:00 11:15:04 MARJORIE ity o f [facility] 2021-03-28 2021-03-28 Outpatient R AKINSIPE, [facility] [id number] Univers 08:00:00 08:00:00 MARJORIE ity o f [facility] 2021-03-28 2021-03-28 Outpatient R AKINSIPE, [facility] [id number] Univers 08:00:00 08:00:00 MARJORIE ity o f [facility] 2021-03-27 2021-03-27 Abstract [facility] 1.2.840.114 [id number] Univers 00:00:00 00:00:00 Marjorie C ADJUNCT POLITICAL SCIENCE INSTRUCTOR 350.1.13.10 ity of REGIONAL 4.2.7.2.686 [place]imi as MATERNAL [id number] [facility] ical & CHILD [address] [place] [address] 2021-03-26 2021-03-26 Outpatient P EVERETT, [facility] [id number] Univers 14:45:00 16:16:18 [facility] 2021-03-26 2021-03-26 Ward Supervisor 3, [facility] Us Room UNIVERSIT 1 .2.840.114 [id number] Univers 14:45:00 16:16:18 Visit [facility] 350.1.13.10 ity of [facility] 4.2.7.2.686 [place] [id number] [address] 2021-03-26 2021-03-26 [facility] [id number] Univers 14:45:00 16:16:18 [facility] 2021-03-26 2021-03-26 [facility] [id number] Univers 14:45:00 14:45:00 [facility] 2021-03-26 2021-03-26 Outpatient R ROBINSON ALVAREZ [facility] [id number] Univers 14:30:00 14:30:00 [facility] 2021-03-21 2021-03-21 Outpatient R AKINJEANNE, [facility] [id number] Univers 08:30:00 10:03:46 MARJORIE ity o f [facility] 2021-03-21 2021-03-21 Initial Akinpe, [facility] [id number] Univers 08:30:00 10:03:46 Marjorie C ADJUNCT POLITICAL SCIENCE INSTRUCTOR 350.1.13.10 ity of Visit REGIONAL 4.2.7.2.686 Yimi as MATERNAL [id number] [facility] ical & CHILD [address] [place] [address] 2021-03-21 2021-03-21 Orders Doctor ROSSI 1.2.840.114 [id number] Univers 00:00:00 00:00:00 Only Unassigned, CARLOS 350.1.13.10 ity [facility] 4.2.7.2.686 Yimi as [id number] [address] 2020-10-02 2020-10-02 Outpatient Marek MMG MMG [id number] [place] 03:15:00 03:15:00 [id number] Medical Group 2020-08-10 2020-08-10 Nurse Nurse, Steve [facility] 1.2.840.114 [id number] 08:17:27 08:44:28 Visit Rmchp Exp ADJUNCT POLITICAL SCIENCE INSTRUCTOR 350.1.13.10 Cprit Obgyn [facility] 4.2.7.2.686 MATERNAL [id number] & CHILD 107 [facility] 2020-08-10 2020-08-10 Outpatient R RILEY [facility] [id number] Univers 08:15:00 08:44:28 MARJORIE robles [facility] 2020-08-10 2020-08-10 Outpatient R [facility] [id number] Univers 08:15:00 08:15:00 ity [facility] 2020-06-26 2020-06-26 Patient Damion [facility] 1.2.840.114 [id number] 00:00:00 00:00:00 Outreach [facility] 350.1.13.10 [facility] 4.2.7.2.686 PAVILLION [id number] 2020-05-29 2020-05-29 Telephone [facility] 1.2.840.114 [id number] 00:00:00 00:00:00 Marjorie Trinidad ADJUNCT POLITICAL SCIENCE INSTRUCTOR 350.1.13.10 REGIONAL 4.2.7.2.686 MATERNAL [id number] & CHILD 107 [facility] 2020-05-18 2020-05-18 Outpatient Carissa ISSA [facility] [id number] Univers 10:15:00 10:15:00 FARA west o [facility] 2020-05-17 2020-05-17 Office Riley [facility] [id number] 15:34:05 16:23:43 Visit Marjorie Trinidad ADJUNCT POLITICAL SCIENCE INSTRUCTOR 350.1.13.10 REGIONAL 4.2.7.2.686 MATERNAL [id number] & CHILD [address] [place] [address] 2020-05-17 2020-05-17 Outpatient R RILYE [facility] [id number] Univers 15:30:00 15:30:00 MARJORIE west o faisal [facility] 2020-04-26 2020-04-26 Outpatient R MAEGAN [facility] [id number] Univers 13:30:00 13:30:00 FARA west o f [facility] 2020-04-24 2020-04-24 Outpatient R MAEGAN [facility] [id number] Univers 12:45:00 12:45:00 FARA west o faisal [facility] 2020-04-02 2020-04-02 Outpatient R RILEY [facility] [id number] Univers 13:30:00 13:30:00 MARJORIE malone [facility] 2020-03-26 2020-03-26 Outpatient P CRISS DUENAS [facility] ISMA [id number] Univers 07:44:00 07:44:00 CRISS DUENAS [facility] 2020-03-22 2020-03-22 Outpatient R [facility] [id number] Univers 11:00:00 11:00:00 ity [facility] 2020-03-15 2020-03-15 Outpatient R [facility] [id number] Univers 10:00:00 10:00:00 ity [facility] 2020-03-15 2020-03-15 Outpatient R [facility] [id number] Univers 08:30:00 08:30:00 ity [facility] 2020-03-12 2020-03-12 Outpatient R [facility] [id number] Univers 09:00:00 09:00:00 ity [facility] 2020-03-08 2020-03-08 Outpatient R [facility] [id number] Univers 09:00:00 09:00:00 ity [facility] 2020-03-05 2020-03-05 Outpatient P [facility] [id number] Univers 10:00:00 10:00:00 ity [facility] 2020-02-28 2020-02-28 [facility] [id number] Univers 10:30:00 10:30:00 ROSARNOLDONDA ity o f [facility] 2020-02-09 2020-02-09 Outpatient R [facility] [id number] Univers 11:00:00 11:00:00 ity of [facility] 2020-01-19 2020-01-19 Outpatient R NAIN, [facility] [id number] Univers 09:00:00 09:00:00 MILLA ity of [facility] 2020-01-13 2020-01-13 Outpatient P [facility] [id number] Univers 10:00:00 10:00:00 ity of [facility] 2020-01-05 2020-01-05 Outpatient P [facility] [id number] Univers 13:00:00 13:00:00 ity [facility] 2019-12-29 2019-12-29 Outpatient R [facility] [id number] Univers 13:30:00 13:30:00 ity of [facility] 2019-12-15 2019-12-15 Outpatient R [facility] [id number] Univers 13:30:00 13:30:00 ity of [facility] 2019-12-08 2019-12-08 Outpatient P [facility] [id number] Univers 11:00:00 11:00:00 ity [facility] 2019-11-29 2019-11-29 [facility] [id number] Univers 13:30:00 13:30:00 ARNIENDA ity o f [facility] 2019-10-17 2019-10-17 Outpatient R MAEGAN, [facility] [id number] Univers 12:45:00 12:45:00 ROSARNOLDONDA ity o f [facility] 2019-10-12 2019-10-12 Outpatient R MAEGAN, [facility] [id number] Univers 09:00:00 09:00:00 ROSHUNDA ity o f [facility] 2019-09-14 2019-09-14 Outpatient R MAEGAN, [facility] [id number] Univers 08:30:00 08:30:00 ROSARNOLDONDA ity o f [facility] 2019-07-22 2019-07-22 Outpatient R [facility] [id number] Univers 08:00:00 08:00:00 ity of [facility] 2019-07-14 2019-07-14 Outpatient R AKINSIPE, [facility] [id number] Univers 13:45:00 13:45:00 MARJORIE [place] [facility] 2019-06-06 2019-06-06 Outpatient R AKINSIPE, [facility] [id number] Univers 13:30:00 13:30:00 MARJORIE [place] o [facility] 2019-05-18 2019-05-18 Outpatient R AKINSIPE, [facility] [id number] Univers 13:15:00 13:57:38 MARJORIE [place] o [facility] 2019-04-14 2019-04-14 Outpatient R AKINSIPE, [facility] [id number] Univers 14:30:00 15:27:06 MARJORIE [place] o [facility] 2019-04-04 2019-04-04 Outpatient R AKINSIPE, [facility] [id number] Univers 14:30:00 14:30:00 MARJORIE [place] o [facility] 2019-02-14 2019-02-14 Outpatient R AKINSIPE, [facility] [id number] Univers 15:45:00 15:38:01 MARJORIE [place] o [facility] 2019-01-19 2019-01-19 Outpatient R AKINSIPE, [facility] [id number] Univers 08:45:00 09:29:56 [facility] Results This patient has no known results.
--- NOTE | 2022-08-13 23:53 | ER ---
Nurse's Notes [facility] Name: Margie Coley Age: 32 yrs Sex: Female : 1990 Arrival Date: 08/13/2022 Time: 21:47 Bed 10 Private MD: Diagnosis: Dental procedure status;Dental caries, unspecified;Other dental procedure status Presentation: 08/13 21:54 Chief complaint: Patient states: "I had a root canal done today and they told me to as6 come to the ER if I couldn't handle the pain. They gave me Tylenol #3 which I don't take. I gives me a rash". Coronavirus screen: At this time, the client does not indicate any symptoms associated with coronavirus-19. Ebola Screen: No symptoms or risks identified at this time. Initial Sepsis Screen: Does the patient meet any 2 criteria? No. Patient's initial sepsis screen is negative. Does the patient have a suspected source of infection? No. Patient's initial sepsis screen is negative. Risk Assessment: Do you want to hurt yourself or someone else? Patient reports no desire to harm self or others. Onset of symptoms was August 13, 2022. 21:54 Method Of Arrival: Ambulatory as6 21:54 Acuity: SONIA 4 as6 Historical: - Allergies: 21:57 Codeine; as6 - PMHx: 21:57 Anemia; Anxiety; back problems; Bipolar disorder; Depression; Substance Abuse; as6 - PSHx: 21:57 Appendectomy; section; as6 - Immunization history:: Client reports receiving the 2nd dose of the Covid vaccine, moderna. - Social history:: Smoking status: Patient denies any tobacco usage or history of. - Family history:: not pertinent. Screenin/11 00:02 [facility] ED Fall Risk Assessment (Adult) History of falling in the last 3 months, ll3 including since admission No falls in past 3 months (0 pts) Confusion or Disorientation No (0 pts) Intoxicated or Sedated No (0 pts) Impaired Gait No (0 pts) Mobility Assist Device Used No (0 pt) Altered Elimination No (0 pt) Score/Fall Risk Level 0 - 2 = Low Risk Oriented to surroundings, Maintained a safe environment, Educated pt \\T\\ family on fall prevention, incl call for assistance when getting out of bed. Abuse screen: Denies threats or abuse. Denies injuries from another. Nutritional screening: No deficits noted. Tuberculosis screening: No symptoms or risk factors identified. Assessment: 00:03 General: Appears uncomfortable, Behavior is cooperative, agitated. Pain: Complains of ll3 pain in mouth. Neuro: Level of Consciousness is awake, alert, obeys commands, Oriented to person, place, time, situation. EENT: Reports recent root canal. Derm: Skin is pink, warm \\T\\ dry. Vital Signs: 08/13 21:54 BP 133 / 76; Pulse 84; Resp 18 S; Temp 98.5(O); Pulse Ox 97% on R/A; Weight 90.72 kg as6 (R); Height 5 ft. 6 in. (R); Pain 01/13; 08/14 00:02 BP 107 / 76; Pulse 82; Resp 16; Pulse Ox 98% on R/A; ll3 08/13 21:54 Body Mass Index 32.28 (90.72 kg, 167.64 cm) as6 08/13 21:54 Pain Scale: Adult as6 ED Course: 08/13 21:50 Patient arrived in ED. ja2 21:57 Triage completed. as6 21:58 Arm band placed on. as6 22:51 Vince Nunez MD is Attending Physician. [facility] 08/14 00:02 Patient has correct armband on for positive identification. Bed in low position. Call ll3 light in reach. Side rails up X 1. 00:03 No provider procedures requiring assistance completed. Patient did not have IV access ll3 during this emergency room visit. Administered Medications: 00:01 Drug: Promethazine IM 25 mg Route: IM; Site: left gluteus; ll3 00:10 Follow up: Response: Medication administered at discharge. ll3 00:02 Drug: HYDROmorphone IM 2 mg Route: IM; Site: right gluteus; ll3 00:11 Follow up: Response: Medication administered at discharge. ll3 Medication: 00:02 VIS not applicable for this client. ll3 Outcome: 08/13 23:52 Discharge ordered by . [facility] 08/14 00:10 Discharged to home ambulatory, with family. ll3 Condition: stable Discharge instructions given to patient, Instructed on discharge instructions, follow up and referral plans. medication usage, Demonstrated understanding of instructions, follow-up care, medications, Prescriptions given X 1. 00:11 Patient left the ED. ll3 Signatures: Vince Nunez MD MD cha Alexander, Jessica ja2 Slawson, Ashby, RN RN as6 Grupo Gutierrez RN RN ll3
--- NOTE | 2022-08-13 23:53 | EDPHYS ---
Physician Documentation [facility] Name: Margie Coley Age: 32 yrs Sex: Female : 1990 Arrival Date: 08/13/2022 Time: 21:47 Bed 10 Private MD: ED Physician Vince Nunez HPI: 08/13 23:46 This 32 yrs old Female presents to ER via Ambulatory with complaints of Mouth viv Problem, Toothache. 23:46 The patient presents with pain. The problem is located in the upper right central viv incisor. Onset: The symptoms/episode began/occurred today. Duration: The symptoms are continuous, and are steadily getting worse. Modifying factors: The symptoms are alleviated by nothing, the symptoms are aggravated by nothing. Associated signs and symptoms: The patient has no apparent associated signs or symptoms. Severity of symptoms: At their worst the symptoms were mild, in the emergency department the symptoms are unchanged. The patient has not experienced similar symptoms in the past. Historical: - Allergies: 21:57 Codeine; as6 - PMHx: 21:57 Anemia; Anxiety; back problems; Bipolar disorder; Depression; Substance Abuse; as6 - PSHx: 21:57 Appendectomy; section; as6 - Immunization history:: Client reports receiving the 2nd dose of the Covid vaccine, moderna. - Social history:: Smoking status: Patient denies any tobacco usage or history of. - Family history:: not pertinent. ROS: 23:46 Constitutional: Negative for fever, chills, and weight loss, Eyes: Negative for injury, viv pain, redness, and discharge, ENT: Negative for injury, pain, and discharge. Exam: 23:50 Constitutional: This is a well developed, well nourished patient who is awake, alert, viv and in no acute distress. Head/Face: Normocephalic, atraumatic. Eyes: Pupils equal round and reactive to light, extra-ocular motions intact. Lids and lashes normal. Conjunctiva and sclera are non-icteric and not injected. Cornea within normal limits. Periorbital areas with no swelling, redness, or edema. Neck: Trachea midline, no thyromegaly or masses palpated, and no cervical lymphadenopathy. Supple, full range of motion without nuchal rigidity, or vertebral point tenderness. No Meningismus. Chest/axilla: Normal chest wall appearance and motion. Nontender with no deformity. No lesions are appreciated. Cardiovascular: Regular rate and rhythm with a normal S1 and S2. No gallops, murmurs, or rubs. Normal PMI, no JVD. No pulse deficits. Respiratory: Lungs have equal breath sounds bilaterally, clear to auscultation and percussion. No rales, rhonchi or wheezes noted. No increased work of breathing, no retractions or nasal flaring. Abdomen/GI: Soft, non-tender, with normal bowel sounds. No distension or tympany. No guarding or rebound. No evidence of tenderness throughout. Back: No spinal tenderness. No costovertebral tenderness. Full range of motion. Skin: Warm, dry with normal turgor. Normal color with no rashes, no lesions, and no evidence of cellulitis. MS/ Extremity: Pulses equal, no cyanosis. Neurovascular intact. Full, normal range of motion. Neuro: Awake and alert, GCS 15, oriented to person, place, time, and situation. Cranial nerves II-XII grossly intact. Motor strength 5/5 in all extremities. Sensory grossly intact. Cerebellar exam normal. Normal gait. Psych: Awake, alert, with orientation to person, place and time. Behavior, mood, and affect are within normal limits. 23:50 ENT: Dental exam: dental caries, gum swelling, pain, that is mild. Vital Signs: 21:54 BP 133 / 76; Pulse 84; Resp 18 S; Temp 98.5(O); Pulse Ox 97% on R/A; Weight 90.72 kg as6 (R); Height 5 ft. 6 in. (R); Pain 01/13; 08/14 00:02 BP 107 / 76; Pulse 82; Resp 16; Pulse Ox 98% on R/A; ll3 08/13 21:54 Body Mass Index 32.28 (90.72 kg, 167.64 cm) as6 08/13 21:54 Pain Scale: Adult as6 MDM: 08/13 22:51 Patient medically screened. [facility] 23:50 Differential diagnosis: dental caries, gingivitis. Data reviewed: vital signs, nurses viv notes. Consideration of Admission/Observation Escalation of care including admission/observation considered. Test considered but Not performed: Labs: no labs. Care significantly affected by the following chronic conditions: anemia, anxiety, bipolar, depression. Administered Medications: 08/14 00:01 Drug: Promethazine IM 25 mg Route: IM; Site: left gluteus; ll3 00:10 Follow up: Response: Medication administered at discharge. ll3 00:02 Drug: HYDROmorphone IM 2 mg Route: IM; Site: right gluteus; ll3 00:11 Follow up: Response: Medication administered at discharge. ll3 Disposition Summary: 08/13/22 23:52 Discharge Ordered Location: Home viv Problem: new viv Symptoms: have improved viv Condition: Stable viv Diagnosis - Dental procedure status viv - Dental caries, unspecified viv - Other dental procedure status viv Followup: viv - With: Private Physician - When: Tomorrow - Reason: Recheck today's complaints, Continuance of care, Re-evaluation by your physician Discharge Instructions: - Discharge Summary Sheet viv - Dental Caries, Adult viv - Dental Pain viv - Dental Pain, [id number] viv - Root Canal viv - Dental Caries, Adult, [id number] viv Forms: - Medication Reconciliation Form viv - Thank You Letter viv - Antibiotic Education viv - Prescription Opioid Use viv Prescriptions: - Diclofenac Sodium 75 mg Oral tablet,delayed release (DR/EC) - take 1 tablet by ORAL route 2 times per day; 14 tablet; Refills: 0, Product viv Selection Permitted Signatures: Vince Nunez MD MD cha Slawson, Ashby RN RN as6 Grupo Gutierrez RN RN ll3
[2022-08-13] MEDS ORDERED: PROMETHAZINE INJ 25 MG/ML AMP ONE (23:59)
[2022-08-14] MEDS ORDERED: HYDROMORPHONE HCL 1 MG/ML INJ ONE
[2022-08-14] MEDS ORDERED: LIDOCAINE 1% MPF 2 ML AMPULE ONE
[2022-08-14 00:34] VITALS: TEMP 98.5
[2022-08-14 00:35] VITALS: BP 107/76; O2SAT 98
== END 2022-08-14 00:11 | disposition home or self-care (01) ==
LOC: ER 21:47
DX: K02.9 Dental caries, unspecified (principal); Z98.818 Other dental procedure status; Z88.5 Allergy status to narcotic agent
CPT/HCPCS: 96372; 99284; J2550